=== PATIENT | female | born 1990 | race Caucasian/White ===

== ENCOUNTER 2020-10-10 17:23 | Emergency (ER) | payer OTHER, SELFPAY ==
[2020-10-10 17:40] VITALS: BP 124/76; PULSE 81; RESP 16; TEMP 36.6; O2SAT 98
--- NOTE | 2020-10-10 17:46 | ED.DENTAL ---
HPI - Dental/Oral General Chief complaint: Dental/Oral Stated complaint: DENTAL PAIN Time Seen by Provider: 10/10/20 17:46 Source: patient and RN notes reviewed Mode of arrival: ambulatory Limitations: no limitations History of Present Illness HPI Narrative: 30 year old female who presents to [facility] care with complaints of 1 day history of dental pain to right lower molar. Patient states that she had a filling in her tooth which fell out about 2 weeks and just started causing her pain today. Patient has noted swelling of gum around #31 tooth with redness,black decay noted around base of tooth with hole in center of tooth where filling previously had been. Patient denies any difficulty with swallowing, no facial swelling noted, no trismus or Christopher angina noted. Patient is presently nursing once or twice daily. MD Complaint: tooth pain Location: Tooth # (31) Onset (ago): day(s) (1) Duration: constant Severity: severe Severity scale (1-10): 8 Relieving factors: other (tylenol helped alittle) Exacerbating factors: cold Context: history of dental caries Associated symptoms: gum swelling Treatment prior to arrival: oral analgesic (Tylenol) Related Data Allergies Allergy/AdvReac Type Severity Reaction Status Date / Time codeine Allergy Unknown Unknown Verified 06/07/20 08:38 latex Allergy Unknown Blister Verified 06/07/20 08:38 Penicillins Allergy Unknown NAUSEA/RASH Verified 06/07/20 08:38 strawberry Allergy Unknown Hives Verified 06/07/20 08:38 Review of Systems Review of Systems: Narrative: CONSTITUTIONAL: Denies fever, chills, or sweats. EYES: Denies visual changes, redness, or discharge. ENT: Denies rhinorrhea, congestion, sore throat, or otalgia.positive for dental pain CARDIOVASCULAR: Denies chest pain, palpitations, or edema. RESPIRATORY: Denies cough or dyspnea. GASTROINTESTINAL: Denies abdominal pain, nausea, vomiting, or diarrhea. GENITOURINARY: Denies dysuria or hematuria. SKIN: Denies rash or itching. MUSCULOSKELETAL: Denies back pain, joint pain, or myalgia. NEUROLOGIC: Denies headache, numbness, or weakness. PSYCHIATRIC: Positive history of anxiety or depression, previous suicide attempt All systems reviewed & are unremarkable except as noted in HPI and below PMFSH Past Medical History Medical History (Updated 10/12/20 @ 11:22 by Eden Win NP) Allergies Anxiety Attention deficit disorder Cyst of face Depression Eating disorder Previous known suicide attempt Swallowing difficulty Surgical History Surgical History H/O dilation and curettage Family History Family History Mother Family history of mental disorder Heart palpitations Anxiety Sibling Patient's sister is in good health, Onset Age: 18 Father Family history of diabetes mellitus in first degree relative Social History Social History (Updated 10/12/20 @ 11:23 by Eden Win NP) Smoking packs per day: 0.50 Smoking cigarettes per day: 10.0 Smoking status: Current every day smoker Smoking end date: 07/21/18 Alcohol intake: never Substance use: former Substance use type: marijuana and crack/cocaine Last use: 2009 Living arrangements: with family Gender identity (if verbalized by the patient): Female Comments At time of signature, agree with nursing past medical, surgical, social and family history. There is no relevant family history pertinent to the presenting complaint Exam Narrative: Exam Narrative: GENERAL: Well-appearing, well-nourished, and in no acute distress. HEAD: Normocephalic, atraumatic. EYES: PERRLA and EOMI. ENT: Nares clear, no rhinorrhea or epistaxis. Mucous membranes moist.TM's normal with good light reflex,throat pink with uvula midline, no tonsil swelling exudates or lesions, No Christopher angina, no facial swelling noted or Trismus. #31 tooth has red swollen gums maldonado
== END 2020-10-10 18:08 | disposition home or self-care (01) ==
PROVIDERS: Emergency Provider Registered Nurse; PCP Internal Medicine
DX: K04.7 Periapical abscess without sinus (principal); F17.210 Nicotine dependence, cigarettes, uncomplicated
CPT/HCPCS: 99213; G0463

== ENCOUNTER → 2020-11-02 10:12 | Outpatient (CLI) | payer OTHER, SELFPAY ==
[2020-11-02 12:52] LABS: Influenza Control Positive
[2020-11-02 17:41] LABS: SARS-CoV-2 RNA PCR Negative
== END ==
PROVIDERS: PCP Internal Medicine; Visit Provider Nurse Practitioner
DX: Z20.822 Contact with and (suspected) exposure to COVID-19 (principal)
CPT/HCPCS: 87804; C9803; U0003; U0005

== ENCOUNTER 2020-11-18 07:23 | Emergency (ER) | payer OTHER, SELFPAY ==
[2020-11-18] VITALS (13 sets, daily range): BP systolic 112–124; BP diastolic 67–84; PULSE 63–84; RESP 12–18; TEMP 36.6; O2SAT 99–100
--- NOTE | ~2020-11-18 | CT_ITS ---
EXAMINATION: CT brain wo con DATE: 11/18/2020 12:08 INDICATION: Dizziness, unsteady gait TECHNIQUE: Computed tomography (CT) of the head was performed without intravenous contrast. The mA wa s adjusted according to patient size. Iterative reconstruction technique was employed. Exam dose: 60 5.33 mGy-cm total exam DLP. COMPARISON: None FINDINGS: No intracranial mass lesion or hemorrhage or cerebrovascular accident is evident. No midlin e shift or mass effect. No subdural or epidural hematoma. There is mild soft tissue thickening or fluid in the dependent aspect of the right sphenoid sinus and focal posterior ethmoid air cell soft tissue thickening on the left. The mastoid air cells are james lly developed and aerated. No fracture or bone destruction of the cranial vault. IMPRESSION: No significant intracranial abnormality Reviewed, dictated and finalized at [facility] Reviewed, dictated and finalized at [facility].
--- NOTE | 2020-11-18 08:06 | ED.DIZZY ---
HPI - Dizziness General Chief Complaint: Dizziness Stated Complaint: dizzy Time Seen by Provider: 11/18/20 07:26 Source: patient and RN notes reviewed Mode of arrival: ambulatory Limitations: no limitations History of Present Illness HPI Narrative: This is a 30 year old female with history of anxiety and depression who presents for evaluation of vertigo. She has been having episodes intermittently for 6 months. She states she normally takes Dramamine and it will relieve her symptoms. Today her vertigo was not relieved with Dramamine. She states she was awaken from her sleep with feeling of room spinning. She has associated nausea but no vomiting. She is unsure of what makes it worse. She has intermittent left ear pain. She reports some sinus disease. She denies headache, fever, chest pain, sob. cough. Related Data Allergies Allergy/AdvReac Type Severity Reaction Status Date / Time codeine Allergy Unknown Unknown Verified 11/18/20 07:33 latex Allergy Unknown Blister Verified 11/18/20 07:33 Penicillins Allergy Unknown NAUSEA/RASH Verified 11/18/20 07:33 strawberry Allergy Unknown Hives Verified 11/18/20 07:33 Review of Systems Review of Systems: All systems reviewed & are unremarkable except as noted in HPI and below Constitutional: Constitutional: Denies chills and Denies fever(s) Eyes: Eyes: Denies change in vision and Denies photophobia ENT: Reports Normal hearing present, Reports vertigo, Reports dizziness and Reports nasal congestion Cardiovascular: Cardiovascular: Denies chest pain Respiratory: Respiratory: Denies cough and Denies dyspnea Gastrointestinal: Gastrointestinal: Denies abdominal pain, Reports nausea and Denies vomiting Neurologic: Reports vertigo, Denies headache(s), Denies focal weakness and Denies numbness PMFSH Past Medical History Medical History Allergies Anxiety Attention deficit disorder Cyst of face Depression Eating disorder Previous known suicide attempt Swallowing difficulty Surgical History Surgical History H/O dilation and curettage Family History Family History Mother Family history of mental disorder Heart palpitations Anxiety Sibling Patient's sister is in good health, Onset Age: 18 Father Family history of diabetes mellitus in first degree relative Social History Social History (Updated 10/12/20 @ 11:23 by Eden Win NP) Smoking packs per day: 0.50 Smoking cigarettes per day: 10.0 Smoking status: Current every day smoker Smoking end date: 07/21/18 Alcohol intake: never Substance use: former Substance use type: marijuana and crack/cocaine Last use: 2009 Gender identity (if verbalized by the patient): Female Exam Const: General: no acute distress and alert Orientation/consciousness: patient oriented x3 HENMT: Head: normocephalic and atraumatic Face and sinus: face symmetric Throat: uvula midline Eyes: EOM: EOMs intact bilaterally Resp: Effort & Inspection: normal respiratory effort and no retractions Auscultation: clear to auscultation bilaterally GI: GI Palp: Yes Soft to palpation, No Tenderness to palpation present (GI) and No Guarding due to palpation present (GI) Auscultation: normal bowel sounds Neuro: General: patient oriented x3, moves all extremities, no focal motor deficits and CN's II-XI intact bilaterally Cranial nerves: Yes CN's II-XII intact bilaterally and Yes Nystagmus not present Speech: normal speech Motor exam (neuro): 5/5 motor strength present throughout Coordination: [id number] test normal Psych: Mental Status: mental status grossly normal Affect: normal affect Course Reevaluation(s) Reevaluation #1: Patient reports she feels better but she still has some vertigo. She will be discharged to follow up with PCP
[2020-11-18] MEDS: LORazepam (*CRX) 1 MG TABLET PO (08:24)
[2020-11-18] MEDS: ONDANSETRON INJ 4 MG/2 ML VIAL IV PUSH (08:24)
[2020-11-18] MEDS: MECLIZINE HCL 25 MG TABLET PO (08:26)
--- NOTE | 2020-11-18 09:27 | PC.NURSE ---
Sitting on cart playing on phone. Still c/o dizziness with movement.
[2020-11-18] MEDS: PROMETHAZINE HCL 25 MG/ML AMPUL 12.5 MG IV PUSH (10:20)
== END 2020-11-18 13:10 | disposition home or self-care (01) ==
PROVIDERS: Emergency Provider General Practice; PCP Internal Medicine
DX: R42 Dizziness and giddiness (principal); J32.9 Chronic sinusitis, unspecified; F41.9 Anxiety disorder, unspecified; F32.9 Major depressive disorder, single episode, unspecified; F98.8 Other specified behavioral and emotional disorders with onset usually occurring in childhood and adolescence; Z87.891 Personal history of nicotine dependence
CPT/HCPCS: 70450; 81025; 96374; 96375; 99284; A9270; J2405; J2550

== ENCOUNTER 2021-03-26 19:21 | Emergency (ER) | payer OTHER, SELFPAY ==
--- NOTE | ~2021-03-26 | XR_ITS ---
EXAMINATION: XR chest 1V portable DATE: 03/26/2021 20:08 INDICATION: Cough and congestion. TECHNIQUE: A single frontal view of the chest was obtained. COMPARISON: Chest 2 views 07/06/2007, CT abdomen and pelvis 05/04/2015 FINDINGS: The chest demonstrates clear lungs without pneumonia, pleural effusion, or pneumothorax. Th e heart size is normal. IMPRESSION: 1. No acute cardiopulmonary disease. Reviewed, dictated and finalized at [facility].
[2021-03-26 19:31] VITALS: BP 128/79; PULSE 95; RESP 14; TEMP 36.7; O2SAT 99
[2021-03-26 19:42] VITALS: BP 136/86; PULSE 92; RESP 97; TEMP 36.8; O2SAT 100; O2SAT 99
--- NOTE | 2021-03-26 20:15 | ED.URI ---
HPI - URI/Sore Throat General Chief Complaint: Upper Respiratory Infection Stated Complaint: cough, loss of smell x 4 days, fatigue Time Seen by Provider: 03/26/21 19:40 Source: RN notes reviewed History of Present Illness HPI Narrative: Patient presents to emergency department from home for upper respiratory infection symptoms. States symptoms began 4 days ago. States he has been having rhinorrhea and nasal congestion as well as a cough this been nonproductive she notes mild sore throat she denies any fevers or chills, chest pain shortness of breath abdominal pain nausea vomiting or any other symptoms. States she did not receive the Covid vaccination Related Data Home Medications Medication Instructions Recorded Confirmed alprazolam 0.5 mg tablet 0.5 mg PO QHS PRN 12/26/20 01/09/21 Allergies Allergy/AdvReac Type Severity Reaction Status Date / Time codeine Allergy Unknown Unknown Verified 03/26/21 19:47 latex Allergy Unknown Blister Verified 03/26/21 19:47 Penicillins Allergy Unknown NAUSEA/RASH Verified 03/26/21 19:47 strawberry Allergy Unknown Hives Verified 03/26/21 19:47 Review of Systems Review of Systems: Gen.: Denies fevers or chills Eyes: Denies eye pain or visual change ENT: See HPI Respiratory: Denies shortness of breath reports cough CV: Denies chest pain or palpitations GI: Denies abdominal pain nausea, emesis or diarrhea Musculoskeletal: Denies back pain or muscle pain Neuro: Denies numbness, tingling, weakness or focal weakness Skin: Denies rash Except as documented, all other systems reviewed and negative [facility] Past Medical History Medical History Allergies Anxiety Anxiety and depression Attention deficit disorder Cyst of face Depression Eating disorder Migraine Previous known suicide attempt Swallowing difficulty Surgical History Surgical History H/O dilation and curettage Family History Family History Mother Family history of mental disorder Heart palpitations Anxiety Sibling Patient's sister is in good health, Onset Age: 18 Father Family history of diabetes mellitus in first degree relative Social History Social History Smoking packs per day: 0.50 Smoking cigarettes per day: 10.0 Smoking status: Former smoker Smoking end date: 07/21/18 Alcohol intake: never Substance use: former Substance use type: marijuana and crack/cocaine Last use: 2009 Gender identity (if verbalized by the patient): Female Exam Narrative: APPEARANCE: No acute distress, nontoxic, resting in bed EYES: EOMI HEENT: Normocephalic, atraumatic, bilateral turbinates boggy mild erythema no exudate of posterior pharynx uvula midline tolerating own secretions RESPIRATORY: No respiratory distress Clear to auscultation bilaterally with no rhonchi wheezing or rales. CARDIOVASCULAR: Regular rate and rhythm without murmurs rubs or gallops. ABDOMINAL: Soft, nontender, nondistended, no rebound or guarding MUSCULOSKELETAl: Moves all extremities. No clubbing, cyanosis or edema. NEURO: Awake and alert. Following commands, speech normal, no focal deficits SKIN:: Warm, dry. No rashes lesions or abrasions PSYCHIATRIC: Normal affect/mood, Course Course Emergency Course: Discussed with patient results of workup and diagnosis. Discussed need for follow-up with primary care, proper use of medication, and reasons to return to the emergency department. Patient understands and agrees to current treatment plan Vital Signs Vital signs: Vital Signs Temperature 98.1 F 03/26/21 19:31 Pulse Rate 95 03/26/21 19:31 Respiratory Rate 14 03/26/21 19:31 Blood Pressure 128/79 03/26/21 19:31 Pulse Oximetry 99 03/26/21 19:31 Temperature 98.2 F 03/26/21 19:42 Pulse Ra
[2021-03-26 20:18] LABS: EDCOVIDSCREEN Negative (Negative)
[2021-03-26 20:58] VITALS: BP 139/94; PULSE 85; RESP 16; O2SAT 97
== END 2021-03-26 21:00 | disposition home or self-care (01) ==
PROVIDERS: Emergency Provider Emergency Medicine; PCP Internal Medicine
DX: Z20.822 Contact with and (suspected) exposure to COVID-19 (principal); F41.9 Anxiety disorder, unspecified; F32.9 Major depressive disorder, single episode, unspecified
CPT/HCPCS: 36415; 71045; 87426; 99283; C9803

== ENCOUNTER 2025-02-22 15:06 | Outpatient (CLI) | payer BC, SELFPAY ==
--- OUTSIDE RECORDS SUMMARY | 2025-02-22 15:09 | XMS_ITS | Encounter Summary ---
Author Organization [facility] Address [address] [place] [address] Care Team Providers Care Pulp Grinder Feeder Name Role Phone None, Provider MD Primary Care Provider Unavaila ble Reason for Referral * Imaging (Emergency) - New Request Specialty Diagnoses / Procedures Referred By Chloe lala Referred To Contact RADIOLOGY Procedures US OB TRANSVAG Brenda Her FNP [phone] [address] Phone: tel: fax: Referral ID Status Reason Start Date Expiration Date V isits Requested Visits Authorized [id number] New Request 02/20/2025 02/20/2026 1 1 Reason for Visit * Reason Comments Vaginal Bleeding Encounter Details Date Type Department Care Team (Late st Contact Info) Description 02/20/2025 5:35 PM CDT - 02/20/2025 10:43 PM CDT Emergency [facility] [place] [address] Brenda Her FNP [phone] [id number] Vaginal Bleeding Discharge Disposition: Home or Self Care (Routine Discharge) Social History Tobacco Use Types Packs/Day Years Used Date Smoking Tobacco: Never Smokeless Tobacco: Never Tobacco Cessation:Counseling Given: Not Answered Alcohol Use Standard Drinks/Week Comments Never 0 (1 standard drink = 0.6 oz pur e alcohol) Comments Yes Sex and Gender Information Value Date Recorded Sex Assigned at Female 02/20/2025 5:26 PM CDT Legal Sex Female 6:15 PM CDT Gender Identity Not on file Sexual Orientation Not on file documented as of this encounter Last Filed Vital Signs Vital Sign Reading Time Taken Comments Blood Pressure 102/58 02/20/2025 10:00 PM CDT Pulse 69 02/20/2025 10:00 PM CDT Temperature 37.1 C (98.7 F) 02/20/2025 5:26 PM CDT Respiratory Rate 18 02/20/2025 10:00 PM CDT Oxygen Saturation 98% 02/20/2025 10:00 PM CDT Inhaled Oxygen Concentration - - Weight 58.1 kg (128 lb) 02/20/2025 5:26 PM CDT Height 167.6 cm (5' 6) 02/20/2025 5:26 PM CDT Body Mass Index 20.66 02/20/2025 5:26 PM CDT documented in this encounter Functional Status * Calculated C-SSRS Risk Score (Lifetime/Recent) Answer Date of Assessment Author Status No Risk Indicated 02/20/2025 5:27 PM CDT Paty Lorenzo RN Active * Ada Suicide Severity Rating Scale (Screener/Recent Self-Report) Question Answer Date of Assessment Author Status 1. Wish to be (Past 1 Month) No 02/20/2025 5:27 PM CDT Tania Lorenzo RN Act edison 2. Non-Specific Active Suicidal Thoughts (Past 1 Month) No 02/20/2025 5:27 PM CDT Tania Lorenzo RN Act edison 6. Suicidal Behavior (Lifetime) No 02/20/2025 5:27 PM CDT Tania Lorenzo RN Act edison documented as of this encounter Discharge Instructions * Discharge Instructions* Brenda Her, KAIL - 02/20/2025 10:08 PM CDT Beta HCG- 21,226 US: IMPRESSION: 1. There is an early intrauterine with a gestational sac and yolk sac demonstrated. No identifiable embryo at this time. 2. Small areas associated with the periphery of the gestational sac of uncertain significance. 3. Findings of probable perigestational hemorrhage and hemorrhage within the cervical canal. 3. Recommend obstetrics evaluation and follow-up ultrasound to confirm whether or not an embryo develops. Please call your EXTENSION SERVICE SPECIALIST tomorrow for follow-up. You will likely need additional blood work and ultrasound imaging, usually wait 48 hours. Pelvic rest, this needs nothing inside the vagina including tampons or having sex. If you are bleeding through more than 1 pad an hour for 2 hours, feeling lightheaded or dizzy you should return for further evaluation. * Attachments The following attachments cannot be sent through Care Everywhere. * Bleeding in Early Discharge Instructions ([place]i) documented in this encounter ED Notes * Tania Lorenzo RN - 02/20/2025 5:25 PM CDT presents to ER with left lower quadrant abdominal cramping and vaginal bleeding. LMP 12/20/2024. Has not established obstetrical care as of yet. documented in this encounter Plan of Treatment Not on file documented as of this encounter Procedures Procedure Name Priority Date/Time Associated Diagnosis Comments US OB TRANSVAG STAT 02/20/2025 8:27 PM CDT HC BLOOD TYPING ABO STAT 02/20/2025 7 :17 PM CDT HC HCG QN STAT 02/20/2025 5:43 PM CDT COMPREHENSIVE METABOLIC PANEL STAT 02/20/2025 5:38 PM CDT CBC W/DIFF AUTOMATED STAT 02/20/2025 5:38 PM CDT HC URINALYSIS AUTO W/O MICRO STAT 02/20/2025 5:35 PM CDT documented in this encounter Results * US OB TRANSVAG (02/20/2025 8:27 PM CDT) Anatomical Region Laterality Modality Abdomen, Pelvis Ultrasound 02/20/2025 9:45 PM CDT Impressions 02/20/2025 10:01 PM CDT IMPRESSION: 1. There is an early intrauterine with a gestational sac and yolk sac demonstrated. No identifiable embryo at this time. 2. Small areas associated with the periphery of the gestational sac of uncertain significance. 3. Findings of probable perigestational hemorrhage and hemorrhage within the cervical canal. 3. Recommend obstetrics evaluation and follow-up ultrasound to confirm whether or not an embryo develops. Referred By: Interpreted By: Huan Brooks MD, 02/20/2025 9:45 PM Narrative 02/20/2025 10:01 PM [address] [address] EXAM: US OB TRANSVAG DATE: 02/20/2025 COMPARISON: None INDICATION: Early and bleeding, left pelvic pain. LMP 12/20/2024. TECHNIQUE: Grayscale, color Doppler, and spectral waveform analysis performed. Transvaginal scanning. FINDINGS: Grayscale, color Doppler, and spectral waveform analysis performed. The uterus measures 9.4 cm long, 5.9 cm AP, and 6.7 cm transverse. Retroverted uterus. The right ovary measures 4.3 x 2.3 x 1.9 cm. Left ovary measures 1.6 x 2.3 x 2.6 cm. There is hypoechoic material in the cervical canal. Probable blood with the given history. Multiple nabothian cysts. There is an intrauterine gestational sac which contains a yolk sac. No identifiable embryo. The margins of portions of the sac are somewhat undulating. Additionally, there are small foci of increased echogenicity along the periphery of the sac. Their etiology is unknown. There are a few small hypoechoic foci associated with the endometrium around the sac. These are likely perigestational hemorrhages. Estimated gestational age by sac measurements is 6 weeks 3 days. This is discrepant with the age by LMP of 8 weeks 6 days. In either case, an embryo would be an expected finding. There is free fluid in the pelvis. The right ovary contains a few small follicles. Blood flow shown to the ovary with Doppler. Hyperechoic structure with posterior shadowing adjacent to the right ovary is probably collapsed, gas containing bowel. Blood flow shown to the left ovary with Doppler. Procedure Note Huan Brooks MD - 02/20/2025 [facility] [address] [place], [place] [address] EXAM: US OB TRANSVAG DATE: 02/20/2025 COMPARISON: None INDICATION: Early and bleeding, left pelvic pain. LMP12/20/2024. TECHNIQUE: Grayscale, color Doppler, and spectral waveform analysisperformed. Transvaginal scanning. FINDINGS: Grayscale, color Doppler, and spectral waveform analysisperformed. The uterus measures 9.4 cm long, 5.9 cm AP, and 6.7 cm transverse.Retroverted uterus. The right ovary measures 4.3 x 2.3 x 1.9 cm. Leftovary measures 1.6 x 2.3 x 2.6 cm. There is hypoechoic material in the cervical canal. Probable blood withthe given history. Multiple nabothian cysts. There is an intrauterine gestational sac which contains a yolk sac. Noidentifiable embryo. The margins of portions of the sac are somewhatundulating. Additionally, there are small foci of increased echogenicityalong the periphery of the sac. Their etiology is unknown. There are afew small hypoechoic foci associated with the endometrium around the sac.These are likely perigestational hemorrhages. Estimated gestational age by sac measurements is 6 weeks 3 days. This isdiscrepant with the age by LMP of 8 weeks 6 days. In either case, anembryo would be an expected finding. There is free fluid in the pelvis. The right ovary contains a few smallfollicles. Blood flow shown to the ovary with Doppler. Hyperechoicstructure with posterior shadowing adjacent to the right ovary is probablycollapsed, gas containing bowel. Blood flow shown to the left ovary withDoppler. IMPRESSION: 1. There is an early intrauterine with a gestational sac andyolk sac demonstrated. No identifiable embryo at this time. 2. Small areas associated with the periphery of the gestational sac ofuncertain significance. 3. Findings of probable perigestational hemorrhage and hemorrhage withinthe cervical canal. 3. Recommend obstetrics evaluation and follow-up ultrasound to confirmwhether or not an embryo develops. Referred By: Interpreted By: Huan Brooks MD, 02/20/2025 9:45 PM Brenda Her [facility] ULTRASOUND Final Resul t * BLOOD TYPING, ABO AND RH (02/20/2025 7:17 PM CDT) ABO/RH O POSITIVE 02/20/2025 7:43 PM CDT [facility] 02/20/2025 7:17 PM CDT Brenda Her [facility] BLOOD BANK TEST ORDERABLES Final Result Performing Organization Address City/[facility] Co de Phone Number [facility] [address] [place] [address], [place] [phone] * Quantitative HCG (02/20/2025 5:43 PM CDT) HCG QUANTITATIVE 21,226 MIU/ML 02/21/20 6:40 PM CDT [facility] Comment: WEEKS OF REFERENCE RANGES Non- female < or = 2 0.2 - 1 5 - 50 1 - 2 50 - 500 2 - 3 100 - 5000 3 - 4 500 - 10,000 4 - 5 1000 - 50,000 5 - 6 10,000 - 100,000 6 - 8 15,000 - 200,000 2 - 3 MONTHS 10,000 - 100,000 02/20/2025 5:43 PM CDT Brenda Her [facility] Final Resul t [facility] [address] [place] [address], [place] [phone] * (ABNORMAL) COMPREHENSIVE METABOLIC PANEL (02/20/2025 5:38 PM CDT) [facility] GLUCOSE 84 70 - 99 MG/DL 02/20/2025 6:22 PM CDT [facility] BUN 6(L) 7 - 18 MG/DL 02/20/2025 6:22 PM CDT [facility] CREATININE S/P/B 0.59 0.55 - 1.02 MG/DL 02/20/2025 6:22 PM CDT [facility] SODIUM S/P/B 136 136 - 145 MMOL/L 02/20/2025 6:22 PM CDT [facility] POTASSIUM S/P/B 3.5 3.5 - 5.1 MMOL/L 02/20/2025 6:22 PM CDT [facility] CHLORIDE S/P/B 105 97 - 115 MMOL/L 02/20/2025 6:22 PM CDT [facility] CO2 26.0 21 - 32 MMOL/L 02/20/2025 6:22 PM CDT [facility] CALCIUM S/P/B 9.7 8.5 - 10.1 MG/DL 02/20/2025 6:22 PM CDT [facility] BILIRUBIN TOTAL S/P/B 0.4 0.2 - 1.2 MG/DL 02/20/2025 6:22 PM CDT [facility] Comment: THIS ASSAY IS NOT RECOMMENDED FOR PATIENTS UNDERGOING TREATMENT WITH ELTROMBOPAG DUE TO THE POTENTIAL FOR FALSELY ELEVATED RESULTS. TOTAL PROTEIN S/P/B 7.4 6.4 - 8.2 G/DL 02/20/2025 6:22 PM CDT [facility] ALBUMIN S/P/B 3.9 3.4 - 5.0 G/DL 02/20/2025 6:22 PM CDT [facility] AST 12(L) 15 - 37 U/L 02/20/2025 6:22 PM CDT [facility] ALT 18 14 - 55 U/L 02/20/2025 6:22 PM CDT [facility] ALKALINE PHOSPHATASE S/P/B 56 50 - 136 U/L 02/20/2025 6:22 PM CDT [facility] ANION GAP 5.0 2 - 10 MMOL/L 02/20/2025 6:22 PM CDT [facility] BUN CREATININE RATIO 10.2 6 - 26 02/20/2025 6:22 PM CDT [facility] A/G RATIO 1.1 1.0 - 2.0 RATIO 02/20/2025 6:22 PM CDT [facility] GFR ESTIMATE >90 >90 ML/MIN/1.7 3 M2 02/20/2025 6:22 PM CDT [facility] Comment: NOTE: eGFR is not calculated for patients <18 years of age or gender unknown. This is an estimated GFR calculation using the new CKD EPI creatinine equation without race and so does not require a correction factor for race. This estimated GFR should not be used for calculating drug doses. 02/20/2025 5:38 PM CDT us Brenda Her LAB TECHNOLOGIST LABORATORY Final Resul t [facility] [address] [place] [address], [place] [phone] * (ABNORMAL) CBC W/DIFF AUTOMATED (02/20/2025 5:38 PM CDT) WBC 7.29 4.5 - 11.0 x10'3/uL 02/20/2025 6:07 PM CDT [facility] RBC 4.04(L) 4.20 - 5.40 x10'6/uL 02/20/2025 6:07 PM CDT [facility] HGB 12.2 12.0 - 16.0 G/DL 02/20/2025 6:07 PM CDT [facility] HCT 36.1(L) 38.0 - 48.0 % 02/20/2025 6:07 PM CDT [facility] MCV 89.4 81.0 - 99.0 FL 02/20/2025 6:07 PM CDT [facility] MCH 30.2 27.0 - 31.0 PG 02/20/2025 6:07 PM CDT [facility] MCHC 33.8 32.0 - 36.0 G/DL 02/20/2025 6:07 PM CDT [facility] RDW 13.0 11.5 - 14.5 % 02/20/2025 6:07 PM CDT [facility] PLT 234 130 - 400 x10'3/uL 02/20/2025 6:07 PM CDT [facility] MPV 9.7 9.3 - 12.2 FL 02/20/2025 6:07 PM CDT [facility] DIFFERENTIAL TYPE AUTOMATED DIFFERENTIAL 02/20/2025 6:07 PM CDT [facility] NEUTROPHILS % 67.0 % 02/20/2025 6:07 PM CDT [facility] LYMPHOCYTES % 25.7 % 02/20/2025 6:07 PM CDT [facility] MONOCYTES % 6.0 % 02/20/2025 6:07 PM CDT [facility] EOSINOPHILS 0.3 % 02/20/2025 6:07 PM CDT [facility] BASOPHILS 0.7 % 02/20/2025 6:07 PM CDT [facility] IMMATURE GRANS % 0.3 % 02/21/20 6:07 PM CDT [facility] ABS. NEUTROPHILS 4.89 1.80 - 7.70 x10'3/uL 02/20/2025 6:07 PM CDT [facility] ABS. LYMPHOCYTES 1.87 1.00 - 4.80 x10'3/uL 02/20/2025 6:07 PM CDT [facility] ABS. MONOCYTES 0.44 0.24 - 0.86 x10'3/uL 02/20/2025 6:07 PM CDT [facility] ABS. EOSINOPHILS 0.02(L) 0.04 - 0.36 x10'3/uL 02/20/2025 6:07 PM CDT [facility] ABS. BASOPHILS 0.05 0.01 - 0.08 x10'3/uL 02/20/2025 6:07 PM CDT [facility] ABS. IMMATURE GRANULOCYTES 0.02 0.00 - 0.49 x10'3/uL 02/20/2025 6:07 PM CDT [facility] 02/20/2025 5:38 PM CDT Brenda Her LAB TECHNOLOGIST LABORATORY Final Resul t [facility] [address] [place] [address], [place] [phone] * URINALYSIS (02/20/2025 5:35 PM CDT) SPECIMEN TYPE URINE CLEAN CATCH 02/20/2025 5:35 PM CDT [facility] COLOR (U) COLORLESS 02/20/2025 5:54 PM CDT [facility] TRANSPARENCY CLEAR 02/20/2025 5:54 PM CDT [facility] SPECIFIC GRAVITY (U) 1.005 1.001 - 1.030 02/20/2025 5:54 PM CDT [facility] U PH 6.5 5.0 - 9.0 02/20/2025 5:54 PM CDT [facility] LEUKOCYTES (U) NEGATIVE NEGATIVE 02/20/2025 5:54 PM CDT [facility] NITRITES NEGATIVE NEGATIVE 02/20/2025 5:54 PM CDT [facility] PROTEIN RANDOM (U) NEGATIVE <30 MG/DL 02/20/2025 5:54 PM CDT [facility] GLUCOSE (U) NORMAL NORMAL MG/DL 02/20/2025 5:54 PM CDT [facility] KETONES MG/DL (U) NEGATIVE NEGATIVE MG/DL 02/20/2025 5:54 PM CDT [facility] UROBILINOGEN NORMAL NORMAL MG/DL 02/20/2025 5:54 PM CDT [facility] BILIRUBIN (U) NEGATIVE NEGATIVE MG/DL 02/20/2025 5:54 PM CDT [facility] BLOOD (U) NEGATIVE NEGATIVE 02/20/2025 5:54 PM CDT [facility] URINE SPECIMEN OBTAINED BY CLEAN CATCH PROCEDURE / Unknown 02/20/2025 5:35 PM CDT us Brenda Her LAB TECHNOLOGIST URINE ORDERABLES Final Resu lt [facility] [address] [place] [address], [place] [phone] documented in this encounter Visit Diagnoses Diagnosis Vaginal bleeding affecting early (HHS/HCC)- Primary documented in this encounter Care Teams Pulp Grinder Feeder Relationship Specialty Start Date End Date None, Provider, PCP - General UNKNOWN PHYSICIAN SPECIALTY 02/20/25 documented as of this encounter
--- OUTSIDE RECORDS SUMMARY | 2025-02-22 15:09 | XMS_ITS | Clinical Summary ---
Author Organization [facility] Address [address] [place] [address] Care Team Providers Care Building Code Administrator Name Role Phone Rolly Demarcus Christianne DO Primary Care Provider [phone] Source Comments [facility],non-owned Affiliates and Associated Physician Practices is amultiple site organization consisting of ambulatory clinics and hospital sitesin [place], [place], [place] and [place]. This disclosure is being madepursuant to the Care Everywhere program and may not contain all information available regarding this patient. Last updated 18.[facility] Allergies Active Allergy Reactions Criticality Noted Date Comments Codeine Nausea and/or Vomiting 05/20/2017 Latex Other 05/20/2017 Pt stated her skin will blister Penicillins Anaphylaxis High 05/20/2017 [place] Urticaria Medium 05/20/2017 Medications * Be aware that medications may not be up to date on this document. Alwaysverify current medications with the patient. venlafaxine XR 24hr (EFFEXOR XR) 150 MG capsule Take 150 mg by mouth daily with breakfast Active Vit-Fe Fumarate-FA ( VITAMIN) 28-0.8 MG tablet Take 1 tablet by mouth once daily Active ibuprofen (MOTRIN) 600 MG tablet Take 1 tablet by mouth every 6 hours as needed for Pain 60 tablet 7 Active docusate sodium (COLACE) 100 MG capsule Take 1 capsule by mouth 2 times daily 30 capsule 3 7 Active polyethylene glycol 3350 (MIRALAX) packet Take 17 g by mouth once daily 30 packet 1 7 Active ferrous sulfate 325 (65 FE) MG tablet Take 1 tablet by mouth daily with breakfast 30 tablet 2 7 Active labetalol (NORMODYNE; TRANDATE) 100 MG tablet Take 1 tablet by mouth every 12 hours 60 tablet 2 7 Active Active Problems Patient Care Coordination No te Formatting of this note migh t be different from the original. 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 Pre-eclampsia in third trimester 05/20/2017 Social History Tobacco Use Types Packs/Day Years Used Date Smoking Tobacco: Every Day Cigarettes Smokeless Tobacco: Never Tobacco Cessation:Ready to Q uit: Yes; Counseling Given: Yes Alcohol Use Standard Drinks/Week Comments No 0 (1 standard drink = 0.6 oz pur e alcohol) Comments No Sex and Gender Information Value Date Recorded Sex Assigned at Not on file Legal Sex Female 2:42 PM CDT Gender Identity Not on file Sexual Orientation Not on file Last Filed Vital Signs Vital Sign Reading Time Taken Comments Blood Pressure 140/82 05/26/2017 4:35 PM DIGITAL STRATEGY MANAGER Pulse 74 05/25/2017 6:35 PM DIGITAL STRATEGY MANAGER Temperature 36.7 C (98.1 F) 05/26/2017 4:35 PM DIGITAL STRATEGY MANAGER Respiratory Rate 16 05/26/2017 4:35 PM DIGITAL STRATEGY MANAGER Oxygen Saturation 99% 05/26/2017 4:35 PM DIGITAL STRATEGY MANAGER Inhaled Oxygen Concentration - - Weight 83 kg (183 lb) 05/26/2017 8:10 AM DIGITAL STRATEGY MANAGER Height 170.2 cm (5' 7) 05/21/2017 8:00 AM CDT Body Mass Index 28.66 05/21/2017 8:00 AM CDT Plan of Treatment Health Maintenance Due Date Last Done Comments HIV SCREENING 10/03/2003 HEPATITIS C SCREENING 09/28/2006 DTAP/TDAP/TD VACCINES (1 - Tdap) 10/03/2007 HEPATITIS B VACCINE (1 of 3 - 19+ 3-dose series) 10/03/2007 HPV VACCINE (1 - 3-dose SCDM series) 10/03/2015 COVID-19 VACCINE (2023-2 5 season) 2024 DEPRESSION SCREENING 07/21/2024 INFLUENZA VACCINE (#1) 2025 ZOSTER VACCINE (1 of 2) 2038 HIB VACCINE Aged Out No longer eligi ble based on patient's age to complete this topic MENINGOCOCCAL (Group B) VACC INE SHARED DECISION-MAKING Aged Out No longer eligibl e based on patient's age to complete this topic MENINGOCOCCAL GROUPS A/C/Y/W VACCINE Aged Out No longer eligible b ased on patient's age to complete this topic PNEUMOCOCCAL VACCINE Aged Out No long er eligible based on patient's age to complete this topic Procedures Procedure Name Priority Date/Time Associated Diagnosis Comments CULTURE STREP B Routine 05/21/2017 7:12 AM CDT from Last 3 Months or Most Recently Relevant to Health Maintenance Results * CULTURE STREP B (05/21/2017 7:12 AM CDT) Culture Strep B Negative for beta-hemolytic Streptococcus Group B DOUGLAS 05/24/2017 4:10 PM CDT [facility] MICROBIOLOGY Microbiology MISCELLANEOUS SAMPLES / Unknown Collection / Unknown 05/21/2017 7:12 AM CDT 05/21/2017 7:27 AM CDT Barbie Solis MD LAB - MICROBIOLOGY ORDERA BLES Final Result [facility]CRO[facility] [address] [place] [address], [facility] [phone] from Last 3 Months or Most Recently Relevant to Health Maintenance Insurance [facility] Advance Directives * Full Code (Latest Code Status on File) Date Activated Date Inactivated Comments 05/22/2017 5:39 PM 05/26/2017 7:54 PM * Full Code Date Activated Date Inactivated Comments 05/20/2017 6:49 PM 05/22/2017 5:39 PM * Full Code Date Activated Date Inactivated Comments 05/20/2017 3:55 PM 05/20/2017 6:49 PM Care Teams Building Code Administrator Relationship Specialty Start Date End Date Demarcus Lofton DO PCP - General Internal Medicine 05/20/17
--- OUTSIDE RECORDS SUMMARY | 2025-02-22 15:09 | XMS_ITS | Clinical Summary ---
Author Organization [facility] Address [address] [place] [address] Care Team Providers Care Senior Enterprise Architect Name Role Phone None, Provider MD Primary Care Provider Unavaila ble Allergies Active Allergy Reactions Criticality Noted Date Comments Penicillins Anaphylaxis High 02/20/2025 Medications No known medications Encounters Date Type Department Care Team Description 02/20/2025 5:35 PM CDT - 02/20/2025 10:[address] [facility] [place] [address] Brenda Her, HEEL BUILDER MACHINE Vaginal Bleeding Discharge Disposition: Home or Self Care (Routine Discharge) 02/20/2025 Travel from Last 3 Months Social History Tobacco Use Types Packs/Day Years [...] Mass Index 20.66 02/20/2025 5:26 PM CDT Plan of Treatment Health Maintenance Due Date Last Done Comments Cervical Cancer Screening Pa p Smear (Age 30 to 64) Every 3 Years 1988 Annual Physical 10/03/1991 Hepatitis C 2006 DTaP, Tdap and Td Vaccines ( 1 - Tdap) 10/03/2007 Hepatitis B Vaccines (1 of 3 - 19+ 3-dose series) 10/03/2007 HPV Vaccines (1 - 3-dose SCD M series) 10/03/2015 Cervical Cancer Screening Pa p with HPV Testing (Age 30 to 64) Every 5 Years 2018 Cervical Cancer Screening with HPV 2018 COVID-19 Vaccine (2023-2 5 season) 2024 RSV Immunization or 60+ Years (1 - 1-dose 75+ series) 10/03/2063 Meningococcal B Vaccine Aged Out No l onger eligible based on patient's age to complete this topic Meningococcal Vaccine Aged Out No marlen natividad eligible based on patient's age to complete this topic Pneumococcal Vaccine: Pediat rics (0 to 5 Years) and At-Risk Patients (6 to 49 Years) Aged Out No longer eligible b ased on patient's age to complete this topic RSV Immunizations Under 20 Months Aged Out No longer eligible based on patient's age to complete [...] W/O MICRO STAT 02/20/2025 5:35 PM CDT from Last 3 Months Results * US OB TRANSVAG (02/20/2025 8:27 [...] 9:45 PM Narrative 02/20/2025 10:01 PM CDT [address] [address] EXAM: US OB TRANSVAG DATE: 02/20/2025 COMPARISON: [...] left ovary with Doppler. Procedure Note Huan Brokos MD - 02/20/[address] [address] EXAM: US OB TRANSVAG DATE: 02/20/2025 COMPARISON: [...] Brooks MD, 02/20/2025 9:45 PM Brenda Her [facility] ULTRASOUND Final Resul t * BLOOD TYPING, ABO AND RH (02/20/2025 7:17 PM CDT) ABO/RH O POSITIVE 02/20/2025 7:43 PM CDT [facility] 02/20/2025 7:17 PM CDT Brenda Her [facility] BLOOD BANK TEST ORDERABLES Final Result [facility] [address] [id number], [place] [phone] * Quantitative HCG (02/20/2025 5:43 PM CDT) HCG QUANTITATIVE 21,226 MIU/ML 02/21/20 6:40 PM CDT [facility] Comment: WEEKS OF REFERENCE RANGES Non- [...] 10,000 - 100,000 02/20/2025 5:43 PM CDT us Brenda Her [facility] Final Resul t [facility] [address] [place] [address], * (ABNORMAL) COMPREHENSIVE METABOLIC PANEL (02/20/2025 5:38 PM CDT) GLUCOSE 84 70 - 99 MG/DL 02/20/2025 6:22 PM CDT [facility] BUN 6(L) 7 - 18 MG/DL 02/20/2025 6:22 PM CDT [facility] CREATININE S/P/B 0.59 0.55 - 1.02 MG/DL 02/20/2025 6:22 PM CDT [facility] SODIUM S/P/B 136 136 - 145 MMOL/L 02/20/2025 6:22 PM CDT [facility] POTASSIUM S/P/B 3.5 3.5 - 5.1 MMOL/L 02/20/2025 6:22 PM CDT [facility] CHLORIDE S/P/B 105 97 - 115 MMOL/L 02/20/2025 6:22 PM CDT [facility] CO2 26.0 21 - 32 MMOL/L 02/20/2025 6:22 PM CDT [facility] CALCIUM S/P/B 9.7 8.5 - 10.1 MG/DL 02/20/2025 6:22 PM CDT [facility] BILIRUBIN TOTAL S/P/B 0.4 0.2 - 1.2 MG/DL 02/20/2025 6:22 PM CDT [facility] Comment: THIS ASSAY IS NOT RECOMMENDED FOR PATIENTS UNDERGOING TREATMENT WITH ELTROMBOPAG DUE TO THE POTENTIAL FOR FALSELY ELEVATED RESULTS. TOTAL PROTEIN S/P/B 7.4 6.4 - 8.2 G/DL 02/20/2025 6:22 PM CDT [facility] ALBUMIN S/P/B 3.9 3.4 - 5.0 G/DL 02/20/2025 6:22 PM CDT [facility] AST 12(L) 15 - 37 U/L 02/20/2025 6:22 PM CDT [facility] ALT 18 14 - 55 U/L 02/20/2025 6:22 PM CDT [facility] ALKALINE PHOSPHATASE S/P/B 56 50 - 136 U/L 02/20/2025 6:22 PM CDT [facility] ANION GAP 5.0 2 - 10 MMOL/L 02/20/2025 6:22 PM CDT [facility] BUN CREATININE RATIO 10.2 6 - 26 02/20/2025 6:22 PM CDT [facility] A/G RATIO 1.1 1.0 - 2.0 RATIO 02/20/2025 6:22 PM CDT [facility] GFR ESTIMATE >90 >90 ML/MIN/1.7 3 M2 02/20/2025 6:22 PM CDT [facility] Comment: NOTE: eGFR is not calculated for patients <18 years of age or gender unknown. This is an estimated GFR calculation using the new CKD EPI creatinine equation without race and so does not require a correction factor for race. This estimated GFR should not be used for calculating drug doses. 02/20/2025 5:38 PM CDT us Brenda Her HEEL BUILDER MACHINE LABORATORY Final Resul t [facility] [address] [place] [address], [place] [phone] * (ABNORMAL) CBC W/DIFF AUTOMATED (02/20/2025 5:38 PM CDT) WBC 7.29 4.5 - 11.0 x10'3/uL 02/20/2025 6:07 PM CDT [facility] RBC 4.04(L) 4.20 - 5.40 x10'6/uL 02/20/2025 6:07 PM CDT [facility] HGB 12.2 12.0 - 16.0 G/DL 02/20/2025 6:07 PM CDT [facility] HCT 36.1(L) 38.0 - 48.0 % 02/20/2025 6:07 PM CDT [facility] MCV 89.4 81.0 - 99.0 FL 02/20/2025 6:07 PM CDT [facility] MCH 30.2 27.0 - 31.0 PG 02/20/2025 6:07 PM CDT [facility] MCHC 33.8 32.0 - 36.0 G/DL 02/20/2025 6:07 PM CDT [facility] RDW 13.0 11.5 - 14.5 % 02/20/2025 6:07 PM CDT [facility] PLT 234 130 - 400 x10'3/uL 02/20/2025 6:07 PM CDT [facility] MPV 9.7 9.3 - 12.2 FL 02/20/2025 6:07 PM CDT [facility] DIFFERENTIAL TYPE AUTOMATED DIFFERENTIAL 02/20/2025 6:07 PM CDT [facility] NEUTROPHILS % 67.0 % 02/20/2025 6:07 PM CDT [facility] LYMPHOCYTES % 25.7 % 02/20/2025 6:07 PM CDT [facility] MONOCYTES % 6.0 % 02/20/2025 6:07 PM CDT [facility] EOSINOPHILS 0.3 % 02/20/2025 6:07 PM CDT [facility] BASOPHILS 0.7 % 02/20/2025 6:07 PM CDT [facility] IMMATURE GRANS % 0.3 % 02/21/20 25 6:07 PM CDT [facility] ABS. NEUTROPHILS 4.89 1.80 - 7.70 x10'3/uL 02/20/2025 6:07 PM CDT [facility] ABS. LYMPHOCYTES 1.87 1.00 - 4.80 x10'3/uL 02/20/2025 6:07 PM CDT [facility] ABS. MONOCYTES 0.44 0.24 - 0.86 x10'3/uL 02/20/2025 6:07 PM CDT [facility] ABS. EOSINOPHILS 0.02(L) 0.04 - 0.36 x10'3/uL 02/20/2025 6:07 PM CDT [facility] ABS. BASOPHILS 0.05 0.01 - 0.08 x10'3/uL 02/20/2025 6:07 PM CDT [facility] ABS. IMMATURE GRANULOCYTES 0.02 0.00 - 0.49 x10'3/uL 02/20/2025 6:07 PM CDT [facility] 02/20/2025 5:38 PM CDT us Brenda Her HEEL BUILDER MACHINE LABORATORY Final Resul t [facility] [address] [place] [address], * URINALYSIS (02/20/2025 5:35 PM CDT) SPECIMEN TYPE URINE CLEAN CATCH 02/20/2025 5:35 PM CDT [facility] COLOR (U) COLORLESS 02/20/2025 5:54 PM CDT [facility] TRANSPARENCY CLEAR 02/20/2025 5:54 PM CDT [facility] SPECIFIC GRAVITY (U) 1.005 1.001 - 1.030 02/20/2025 5:54 PM CDT [facility] U PH 6.5 5.0 - 9.0 02/20/2025 5:54 PM CDT [facility] LEUKOCYTES (U) NEGATIVE NEGATIVE 02/20/2025 5:54 PM CDT [facility] NITRITES NEGATIVE NEGATIVE 02/20/2025 5:54 PM CDT [facility] PROTEIN RANDOM (U) NEGATIVE <30 MG/DL 02/20/2025 5:54 PM CDT [facility] GLUCOSE (U) NORMAL NORMAL MG/DL 02/20/2025 5:54 PM CDT [facility] KETONES MG/DL (U) NEGATIVE NEGATIVE MG/DL 02/20/2025 5:54 PM CDT [facility] UROBILINOGEN NORMAL NORMAL MG/DL 02/20/2025 5:54 PM CDT [facility] BILIRUBIN (U) NEGATIVE NEGATIVE MG/DL 02/20/2025 5:54 PM CDT [facility] BLOOD (U) NEGATIVE NEGATIVE 02/20/2025 5:54 PM CDT [facility] URINE SPECIMEN OBTAINED BY CLEAN CATCH PROCEDURE / Unknown 02/20/2025 5:35 PM CDT us Brenda Her HEEL BUILDER MACHINE URINE ORDERABLES Final Resu lt [facility] [address] [facility] [place] [address], [place] [phone] from Last 3 Months Insurance [facility] Care Teams Senior Enterprise Architect Relationship Specialty Start Date End Date None, Provider, MD PCP - General UNKNOWN PHYSICIAN SPECIALTY 02/20/25
[2025-02-22 18:49] LABS: Beta HCG Quantitative 38839.00 mIU/ML
== END 2025-02-22 15:07 | disposition home or self-care (01) ==
PROVIDERS: PCP Internal Medicine; Visit Provider Student in an Organized Health Care Education/Training Program
DX: O20.9 Hemorrhage in early pregnancy, unspecified (principal); Z3A.00 Weeks of gestation of pregnancy not specified
CPT/HCPCS: 36415; 84702

== ENCOUNTER 2025-02-24 13:37 | Outpatient (CLI) | payer BC, SELFPAY ==
--- OUTSIDE RECORDS SUMMARY | 2025-02-24 13:39 | XMS_ITS | Clinical Summary ---
Author Organization [facility] Address [address] [place] [address] Care Team Providers Care Pin Attacher Name Role Phone Rolly Demarcus Christianne DO Primary Care Provider [phone] Source Comments [facility] [employer],non-owned Affiliates and Associated Physician Practices is amultiple site organization consisting of ambulatory clinics and hospital sitesin [place], [place], [place] and [place]. This disclosure is being madepursuant to the Care Everywhere program and may not contain all information available regarding this patient. Last updated 18.[facility] [employer] Allergies Active Allergy Reactions Criticality Noted Date Comments Codeine Nausea and/or Vomiting 05/20/2017 Latex Other 05/20/2017 Pt stated her skin will blister Penicillins Anaphylaxis High 05/20/2017 [place] Urticaria Medium 05/20/2017 Medications * Be aware [...] Comments Blood Pressure 140/82 05/26/2017 4:35 PM ROLLING MILL OPERATOR Pulse 74 05/25/2017 6:35 PM ROLLING MILL OPERATOR Temperature 36.7 C (98.1 F) 05/26/2017 4:35 PM ROLLING MILL OPERATOR Respiratory Rate 16 05/26/2017 4:35 PM ROLLING MILL OPERATOR Oxygen Saturation 99% 05/26/2017 4:35 PM ROLLING MILL OPERATOR Inhaled Oxygen Concentration - - Weight 83 kg (183 lb) 05/26/2017 8:10 AM ROLLING MILL OPERATOR Height 170.2 cm (5' 7) 05/21/2017 8:00 [...] Group B DOUGLAS 05/24/2017 4:10 PM CDT [facility] MICROBIOLOGY Microbiology MISCELLANEOUS SAMPLES / Unknown Collection / Unknown 05/21/2017 7:12 AM CDT 05/21/2017 7:27 AM CDT Barbie Solis MD LAB - MICROBIOLOGY ORDERA BLES Final Result [facility]CRO[facility] [address] [place] [address], [facility] [phone] from Last 3 Months or Most Recently Relevant to Health Maintenance Insurance [facility] Advance Directives * Full Code (Latest Code Status on File) Date Activated Date Inactivated Comments 05/22/2017 5:39 PM 05/26/2017 7:54 PM * Full Code Date Activated Date Inactivated Comments 05/20/2017 6:49 PM 05/22/2017 5:39 PM * Full Code Date Activated Date Inactivated Comments 05/20/2017 3:55 PM 05/20/2017 6:49 PM Care Teams Pin Attacher Relationship Specialty Start Date End Date Demarcus Lofton DO PCP - General Internal Medicine 05/20/17
[2025-02-24 15:25] LABS: Beta HCG Quantitative 62474.00 mIU/ML
== END 2025-02-24 13:38 | disposition home or self-care (01) ==
LOC: ANHLAB 13:37
PROVIDERS: PCP Internal Medicine; Visit Provider Student in an Organized Health Care Education/Training Program
DX: O20.9 Hemorrhage in early pregnancy, unspecified (principal); Z3A.00 Weeks of gestation of pregnancy not specified
CPT/HCPCS: 36415; 84702

== ENCOUNTER 2025-03-27 16:04 | Emergency (ER) | payer BC, SELFPAY ==
[2025-03-27 16:06] VITALS: BP 105/73; PULSE 80; RESP 16; TEMP 36.8; O2SAT 99
--- OUTSIDE RECORDS SUMMARY | 2025-03-27 16:06 | XMS_ITS | Clinical Summary ---
Author Organization [facility] Address [address] [place] [address] Care Team Providers Care Power Saw Mechanic Name Role Phone Rolly Demarcus Christianne DO Primary Care Provider [phone] Source Comments [facility] [employer],non-owned Affiliates and Associated Physician Practices is amultiple site organization consisting of ambulatory clinics and hospital sitesin [place], [place], [place] and [place]. This disclosure is being madepursuant to the Care Everywhere program and may not contain all information available regarding this patient. Last updated 18.[facility] [employer] Allergies Active Allergy Reactions Criticality Noted Date Comments Codeine Nausea and/or Vomiting 05/20/2017 Latex Other 05/20/2017 Pt stated her skin will blister Penicillins Anaphylaxis High 05/20/2017 [place] Urticaria Medium 05/20/2017 Medications * Be aware [...] Date Supervision of high-risk of young kai igravida 05/20/2017 Overview (05/20/2017): Consult from Dr. Villasenor [...] Comments Blood Pressure 140/82 05/26/2017 4:35 PM BUTADIENE CONVERTER HELPER Pulse 74 05/25/2017 6:35 PM BUTADIENE CONVERTER HELPER Temperature 36.7 C (98.1 F) 05/26/2017 4:35 PM BUTADIENE CONVERTER HELPER Respiratory Rate 16 05/26/2017 4:35 PM BUTADIENE CONVERTER HELPER Oxygen Saturation 99% 05/26/2017 4:35 PM BUTADIENE CONVERTER HELPER Inhaled Oxygen Concentration - - Weight 83 kg (183 lb) 05/26/2017 8:10 AM BUTADIENE CONVERTER HELPER Height 170.2 cm (5' 7) 05/21/2017 8:00 AM CDT Body Mass Index 28.66 05/21/2017 8:00 AM CDT Plan of Treatment Health Maintenance Due Date Last Done Comments HIV SCREENING 10/03/2003 HEPATITIS C SCREENING 09/28/2006 DTAP/TDAP/TD VACCINES (1 - Tdap) 10/03/2007 HEPATITIS B VACCINE (1 of 3 - 19+ 3-dose series) 10/03/2007 HPV VACCINE (1 - 3-dose SCDM series) 10/03/2015 DEPRESSION SCREENING 07/21/2024 COVID-19 VACCINE (2023-2 5 season) 2025 INFLUENZA VACCINE (#1) 2025 ZOSTER VACCINE (1 [...] Group B DOUGLAS 05/24/2017 4:10 PM CDT [facility] MICROBIOLOGY Microbiology MISCELLANEOUS SAMPLES / Unknown Collection / Unknown 05/21/2017 7:12 AM CDT 05/21/2017 7:27 AM CDT Barbie Solis MD LAB - MICROBIOLOGY ORDERA BLES Final Result [facility] MICROBIOLOGY [address] [place] [address], [facility] [phone] from Last 3 Months or Most Recently Relevant to Health Maintenance Insurance [facility] Advance Directives * Full Code (Latest Code Status on File) Date Activated Date Inactivated Comments 05/22/2017 5:39 PM 05/26/2017 7:54 PM * Full Code Date Activated Date Inactivated Comments 05/20/2017 6:49 PM 05/22/2017 5:39 PM * Full Code Date Activated Date Inactivated Comments 05/20/2017 3:55 PM 05/20/2017 6:49 PM Care Teams Power Saw Mechanic Relationship Specialty Start Date End Date Demarcus Lofton DO PCP - General Internal Medicine 05/20/17
--- OUTSIDE RECORDS SUMMARY | 2025-03-27 16:06 | XMS_ITS | Clinical Summary ---
Author Organization [facility] Address [address] [place] [address] Care Team Providers Care Marking Room Supervisor Name Role Phone None, Provider MD Primary Care Provider Unavaila ble Allergies Active Allergy Reactions Criticality Noted Date Comments Penicillins Anaphylaxis High 02/20/2025 Medications No known medications Encounters Date Type Department Care Team Description 02/20/2025 5:35 PM CDT - 02/20/2025 10:43 PM CDT Emergency [facility] [place] [address] Brenda Her, DRIER TRANSFER CAR OPERATOR Vaginal Bleeding Discharge Disposition: Home or Self [...] HPV 2018 COVID-19 Vaccine (2023-2 5 season) 2025 RSV Immunization or 60+ Years (1 - [...] 9:45 PM Narrative 02/20/2025 10:01 PM CDT [address] [address] EXAM: US OB TRANSVAG DATE: 02/20/2025 COMPARISON: [...] Procedure Note Huan Brooks MD - 02/20/[address] [address] EXAM: US OB TRANSVAG DATE: 02/20/2025 COMPARISON: [...] Brooks MD, 02/20/2025 9:45 PM Brenda Her [facility]TR[facility] Final Resul t * BLOOD TYPING, ABO AND RH (02/20/2025 7:17 PM CDT) ABO/RH O POSITIVE 02/20/2025 7:43 PM CDT [facility] 02/20/2025 7:17 PM CDT Brenda Her [facility] BLOOD BANK TEST ORDERABLES Final Result [facility] [address] [address], [place] [phone] * Quantitative HCG (02/20/2025 5:43 PM CDT) HCG QUANTITATIVE 21,226 MIU/ML 02/21/20 6:40 PM CDT [facility] Comment: WEEKS OF REFERENCE RANGES Non- [...] 02/20/2025 5:43 PM CDT us Brenda Her [facility] Final Resul t [facility] [address] [place] [address], * (ABNORMAL) COMPREHENSIVE METABOLIC PANEL (02/20/2025 5:38 PM CDT) GLUCOSE 84 70 - 99 MG/DL 02/20/2025 6:22 PM CDT [facility] BUN 6(L) 7 - 18 MG/DL 02/20/2025 6:22 PM CDT [facility] CREATININE S/P/B 0.59 0.55 - 1.02 MG/DL 02/20/2025 6:22 PM CDT [facility] SODIUM S/P/B 136 136 - 145 MMOL/L 02/20/2025 6:22 PM CDT [facility] POTASSIUM S/P/B 3.5 3.5 - 5.1 MMOL/L 02/20/2025 6:22 PM CDT [facility] CHLORIDE S/P/B 105 97 - 115 MMOL/L 02/20/2025 6:22 PM CDT [facility] CO2 26.0 21 - 32 MMOL/L 02/20/2025 6:22 PM CDT [facility] CALCIUM S/P/B 9.7 8.5 - 10.1 MG/DL 02/20/2025 6:22 PM CDT [facility] BILIRUBIN TOTAL S/P/B 0.4 0.2 - 1.2 MG/DL 02/20/2025 6:22 PM CDT [facility] Comment: THIS ASSAY IS NOT RECOMMENDED FOR PATIENTS UNDERGOING TREATMENT WITH ELTROMBOPAG DUE TO THE POTENTIAL FOR FALSELY ELEVATED RESULTS. TOTAL PROTEIN S/P/B 7.4 6.4 - 8.2 G/DL 02/20/2025 6:22 PM CDT [facility] ALBUMIN S/P/B 3.9 3.4 - 5.0 G/DL 02/20/2025 6:22 PM CDT [facility] AST 12(L) 15 - 37 U/L 02/20/2025 6:22 PM CDT [facility] ALT 18 14 - 55 U/L 02/20/2025 6:22 PM CDT [facility] ALKALINE PHOSPHATASE S/P/B 56 50 - 136 U/L 02/20/2025 6:22 PM CDT [facility] ANION GAP 5.0 2 - 10 MMOL/L 02/20/2025 6:22 PM CDT [facility] BUN CREATININE RATIO 10.2 6 - 26 02/20/2025 6:22 PM CDT [facility] A/G RATIO 1.1 1.0 - 2.0 RATIO 02/20/2025 6:22 PM CDT [facility] GFR ESTIMATE >90 >90 ML/MIN/1.7 3 M2 02/20/2025 6:22 PM CDT [facility] Comment: NOTE: eGFR is not calculated for patients <18 years of age or gender unknown. This is an estimated GFR calculation using the new CKD EPI creatinine equation without race and so does not require a correction factor for race. This estimated GFR should not be used for calculating drug doses. 02/20/2025 5:38 PM CDT us Brenda Her DRIER TRANSFER CAR OPERATOR LABORATORY Final Resul t [facility] [address] [place] [address], [place] [phone] * (ABNORMAL) CBC W/DIFF AUTOMATED (02/20/2025 5:38 PM CDT) WBC 7.29 4.5 - 11.0 x10'3/uL 02/20/2025 6:07 PM CDT [facility] RBC 4.04(L) 4.20 - 5.40 x10'6/uL 02/20/2025 6:07 PM CDT [facility] HGB 12.2 12.0 - 16.0 G/DL 02/20/2025 6:07 PM CDT [facility] HCT 36.1(L) 38.0 - 48.0 % 02/20/2025 6:07 PM CDT [facility] MCV 89.4 81.0 - 99.0 FL 02/20/2025 6:07 PM CDT [facility] MCH 30.2 27.0 - 31.0 PG 02/20/2025 6:07 PM CDT [facility] MCHC 33.8 32.0 - 36.0 G/DL 02/20/2025 6:07 PM CDT [facility] RDW 13.0 11.5 - 14.5 % 02/20/2025 6:07 PM CDT [facility] PLT 234 130 - 400 x10'3/uL 02/20/2025 6:07 PM CDT [facility] MPV 9.7 9.3 - 12.2 FL 02/20/2025 6:07 PM CDT [facility] DIFFERENTIAL TYPE AUTOMATED DIFFERENTIAL 02/20/2025 6:07 PM CDT [facility] NEUTROPHILS % 67.0 % 02/20/2025 6:07 PM CDT [facility] LYMPHOCYTES % 25.7 % 02/20/2025 6:07 PM CDT [facility] MONOCYTES % 6.0 % 02/20/2025 6:07 PM CDT [facility] EOSINOPHILS 0.3 % 02/20/2025 6:07 PM CDT [facility] BASOPHILS 0.7 % 02/20/2025 6:07 PM CDT [facility] IMMATURE GRANS % 0.3 % 02/21/20 25 6:07 PM CDT [facility] ABS. NEUTROPHILS 4.89 1.80 - 7.70 x10'3/uL 02/20/2025 6:07 PM CDT [facility] ABS. LYMPHOCYTES 1.87 1.00 - 4.80 x10'3/uL 02/20/2025 6:07 PM CDT [facility] ABS. MONOCYTES 0.44 0.24 - 0.86 x10'3/uL 02/20/2025 6:07 PM CDT [facility] ABS. EOSINOPHILS 0.02(L) 0.04 - 0.36 x10'3/uL 02/20/2025 6:07 PM CDT [facility] ABS. BASOPHILS 0.05 0.01 - 0.08 x10'3/uL 02/20/2025 6:07 PM CDT [facility] ABS. IMMATURE GRANULOCYTES 0.02 0.00 - 0.49 x10'3/uL 02/20/2025 6:07 PM CDT [facility] 02/20/2025 5:38 PM CDT us Brenda Her DRIER TRANSFER CAR OPERATOR LABORATORY Final Resul t [facility] [address] [place] [address], * URINALYSIS (02/20/2025 5:35 PM CDT) SPECIMEN TYPE URINE CLEAN CATCH 02/20/2025 5:35 PM CDT [facility] COLOR (U) COLORLESS 02/20/2025 5:54 PM CDT [facility] TRANSPARENCY CLEAR 02/20/2025 5:54 PM CDT [facility] SPECIFIC GRAVITY (U) 1.005 1.001 - 1.030 02/20/2025 5:54 PM CDT [facility] U PH 6.5 5.0 - 9.0 02/20/2025 5:54 PM CDT [facility] LEUKOCYTES (U) NEGATIVE NEGATIVE 02/20/2025 5:54 PM CDT [facility] NITRITES NEGATIVE NEGATIVE 02/20/2025 5:54 PM CDT [facility] PROTEIN RANDOM (U) NEGATIVE <30 MG/DL 02/20/2025 5:54 PM CDT [facility] GLUCOSE (U) NORMAL NORMAL MG/DL 02/20/2025 5:54 PM CDT [facility] KETONES MG/DL (U) NEGATIVE NEGATIVE MG/DL 02/20/2025 5:54 PM CDT [facility] UROBILINOGEN NORMAL NORMAL MG/DL 02/20/2025 5:54 PM CDT [facility] BILIRUBIN (U) NEGATIVE NEGATIVE MG/DL 02/20/2025 5:54 PM CDT [facility] BLOOD (U) NEGATIVE NEGATIVE 02/20/2025 5:54 PM CDT [facility] URINE SPECIMEN OBTAINED BY CLEAN CATCH PROCEDURE / Unknown 02/20/2025 5:35 PM CDT us Brenda Her DRIER TRANSFER CAR OPERATOR URINE ORDERABLES Final Resu lt [facility] [address] [facility] [place] [address], [place] [phone] from Last 3 Months Insurance [facility] Care Teams Marking Room Supervisor Relationship Specialty Start Date End Date None, Provider, MD PCP - General UNKNOWN PHYSICIAN SPECIALTY 02/20/25
[2025-03-27 16:24] VITALS: PULSE 73; RESP 18; O2SAT 99
[2025-03-27] MEDS: LACTATED RINGERS 1,000 ML 999 ML IV CONT ×2 (16:31→17:50)
[2025-03-27 16:36] LABS: Hematocrit 33.5 % (37.0-47.0); Hemoglobin 11.3 g/dL (12.0-15.0); Immature Granulocyte Percent A 0.5 % (0-0.5); Lymphocytes Absolute Auto 1.91 K/mm3 (0.9-3.2); Mean Corpuscular HGB Conc 33.7 g/dl (32-36); Mean Corpuscular Hemoglobin 30.1 pg (26-34); Mean Corpuscular Volume 89.3 fl (80-100); Nucleated Red Blood Cells Absolute Auto 0.000 K/mm3 (0.0-0.012); Nucleated Red Blood Cells Perc 0.0 % (0.0-0.2); Platelet Count Result 209 k/mm3 (150-375); Red Blood Count 3.75 M/mm3 (4.2-5.4); White Blood Count 9.9 K/mm3 (4.5-10.0)
--- OUTSIDE RECORDS SUMMARY | 2025-03-27 16:47 | XMS_ITS | Clinical Summary ---
Author Organization [facility] Address [address] [place] [address] Care Team Providers Care Plumber Name Role Phone Rolly Demarcus Christianne DO Primary Care Provider [phone] [phone] Source Comments [facility] [employer],non-owned Affiliates and Associated Physician Practices is amultiple site organization consisting of ambulatory clinics and hospital sitesin [place], [place], [place] and [place]. This disclosure is being madepursuant to the Care Everywhere program and may not contain all information available regarding this patient. Last updated 18.[facility] Allergies Active Allergy Reactions Criticality Noted Date Comments Codeine Nausea and/or Vomiting 05/20/2017 Latex Other 05/20/2017 Pt stated her skin will blister Penicillins Anaphylaxis High 05/20/2017 Cuttyhunk Urticaria Medium 05/20/2017 Medications * Be aware [...] Comments Blood Pressure 140/82 05/26/2017 4:35 PM [employer] Pulse 74 05/25/2017 6:35 PM [employer] Temperature 36.7 C (98.1 F) 05/26/2017 4:35 PM [employer] Respiratory Rate 16 05/26/2017 4:35 PM [employer] Oxygen Saturation 99% 05/26/2017 4:35 PM [employer] Inhaled Oxygen Concentration - - Weight 83 kg (183 lb) 05/26/2017 8:10 AM [employer] Height 170.2 cm (5' 7) 05/21/2017 8:00 [...] Group B DOUGLAS 05/24/2017 4:10 PM CDT [facility] Microbiology MISCELLANEOUS SAMPLES / Unknown Collection / Unknown 05/21/2017 7:12 AM CDT 05/21/2017 7:27 AM CDT Barbie Solis MD LAB - MICROBIOLOGY ORDERA BLES Final Result [facility] [address] [place] [address], [facility] [[email or web address]] [phone] from Last 3 Months or Most Recently Relevant to Health Maintenance Insurance [facility] Advance Directives * Full Code (Latest Code Status on File) Date Activated Date Inactivated Comments 05/22/2017 5:39 PM 05/26/2017 7:54 PM * Full Code Date Activated Date Inactivated Comments 05/20/2017 6:49 PM 05/22/2017 5:39 PM * Full Code Date Activated Date Inactivated Comments 05/20/2017 3:55 PM 05/20/2017 6:49 PM Care Teams Plumber Relationship Specialty Start Date End Date Demarcus Lofton DO PCP - General Internal Medicine 05/20/17
--- OUTSIDE RECORDS SUMMARY | 2025-03-27 16:47 | XMS_ITS | Clinical Summary ---
Author Organization [facility] Address [address] [place] [id number] Care Team Providers Care Clean Up Person Name Role Phone None, Provider MD Primary Care Provider Unavaila ble Allergies Active Allergy Reactions Criticality Noted Date Comments Penicillins Anaphylaxis High 02/20/2025 Medications No known medications Encounters Date Type Department Care Team Description 02/20/2025 5:35 PM CDT - 02/20/2025 10:43 PM CDT Emergency [facility] [place] [address] Brenda Her, MIXER OPERATOR [employer]ALT Vaginal Bleeding Discharge Disposition: Home or Self [...] 9:45 PM Narrative 02/20/2025 10:01 PM CDT [address] [address] EXAM: US OB TRANSVAG DATE: 02/20/2025 COMPARISON: [...] Procedure Note Huan Brooks MD - 02/20/[address] [address] EXAM: US OB TRANSVAG DATE: 02/20/2025 COMPARISON: [...] Brooks MD, 02/20/2025 9:45 PM Brenda Her [facility] ULTRASOUND Final Resul t * BLOOD TYPING, ABO AND RH (02/20/2025 7:17 PM CDT) ABO/RH O POSITIVE 02/20/2025 7:43 PM CDT [facility] 02/20/2025 7:17 PM CDT Brenda Her [facility] BLOOD BANK TEST ORDERABLES Final Result [facility] [address] [address], [place] [phone] * Quantitative HCG (02/20/2025 5:43 PM CDT) HCG QUANTITATIVE 21,226 MIU/ML 02/21/20 6:40 PM CDT [facility] Comment: WEEKS OF REFERENCE [...] 02/20/2025 5:43 PM CDT us Brenda Her [facility]ORATORY Final Resul t [facility] [address] [place] [address], * (ABNORMAL) COMPREHENSIVE METABOLIC PANEL (02/20/2025 5:38 PM CDT) GLUCOSE 84 70 - 99 MG/DL 02/20/2025 6:22 PM CDT [facility] BUN 6(L) 7 - 18 MG/DL 02/20/2025 6:22 PM CDT [facility] CREATININE S/P/B 0.59 0.55 - 1.02 MG/DL 02/20/2025 6:22 PM CDT [facility] SODIUM S/P/B 136 136 - 145 MMOL/L 02/20/2025 6:22 PM CDT [facility] POTASSIUM S/P/B 3.5 3.5 - 5.1 MMOL/L 02/20/2025 6:22 PM CDT [facility] CHLORIDE S/P/B 105 97 - 115 MMOL/L 02/20/2025 6:22 PM CDT [facility] CO2 26.0 21 - 32 MMOL/L 02/20/2025 6:22 PM CDT [facility] CALCIUM S/P/B 9.7 8.5 - 10.1 MG/DL 02/20/2025 6:22 PM CDT [facility] BILIRUBIN TOTAL S/P/B 0.4 0.2 - 1.2 MG/DL 02/20/2025 6:22 PM CDT [facility] Comment: THIS ASSAY IS NOT RECOMMENDED FOR PATIENTS UNDERGOING TREATMENT WITH ELTROMBOPAG DUE TO THE POTENTIAL FOR FALSELY ELEVATED RESULTS. TOTAL PROTEIN S/P/B 7.4 6.4 - 8.2 G/DL 02/20/2025 6:22 PM CDT [facility] ALBUMIN S/P/B 3.9 3.4 - 5.0 G/DL 02/20/2025 6:22 PM CDT [facility] AST 12(L) 15 - 37 U/L 02/20/2025 6:22 PM CDT [facility] ALT 18 14 - 55 U/L 02/20/2025 6:22 PM CDT [facility] ALKALINE PHOSPHATASE S/P/B 56 50 - 136 U/L 02/20/2025 6:22 PM CDT [facility] ANION GAP 5.0 2 - 10 MMOL/L 02/20/2025 6:22 PM CDT [facility] BUN CREATININE RATIO 10.2 6 - 26 02/20/2025 6:22 PM CDT [facility] A/G RATIO 1.1 1.0 - 2.0 RATIO 02/20/2025 6:22 PM CDT [facility] GFR ESTIMATE >90 >90 ML/MIN/1.7 3 M2 02/20/2025 6:22 PM CDT [facility] Comment: NOTE: eGFR is not calculated for patients <18 years of age or gender unknown. This is an estimated GFR calculation using the new CKD EPI creatinine equation without race and so does not require a correction factor for race. This estimated GFR should not be used for calculating drug doses. 02/20/2025 5:38 PM CDT us Brenda Her MIXER OPERATOR [employer] LABORATORY Final Resul t [facility] [address] [place] [address], [place] [phone] * (ABNORMAL) CBC W/DIFF AUTOMATED (02/20/2025 5:38 PM CDT) WBC 7.29 4.5 - 11.0 x10'3/uL 02/20/2025 6:07 PM CDT [facility] RBC 4.04(L) 4.20 - 5.40 x10'6/uL 02/20/2025 6:07 PM CDT [facility] HGB 12.2 12.0 - 16.0 G/DL 02/20/2025 6:07 PM CDT [facility] HCT 36.1(L) 38.0 - 48.0 % 02/20/2025 6:07 PM CDT [facility] MCV 89.4 81.0 - 99.0 FL 02/20/2025 6:07 PM CDT [facility] MCH 30.2 27.0 - 31.0 PG 02/20/2025 6:07 PM CDT [facility] MCHC 33.8 32.0 - 36.0 G/DL 02/20/2025 6:07 PM CDT [facility] RDW 13.0 11.5 - 14.5 % 02/20/2025 6:07 PM CDT [facility] PLT 234 130 - 400 x10'3/uL 02/20/2025 6:07 PM CDT [facility] MPV 9.7 9.3 - 12.2 FL 02/20/2025 6:07 PM CDT [facility] DIFFERENTIAL TYPE AUTOMATED DIFFERENTIAL 02/20/2025 6:07 PM CDT [facility] NEUTROPHILS % 67.0 % 02/20/2025 6:07 PM CDT [facility] LYMPHOCYTES % 25.7 % 02/20/2025 6:07 PM CDT [facility] MONOCYTES % 6.0 % 02/20/2025 6:07 PM CDT [facility] EOSINOPHILS 0.3 % 02/20/2025 6:07 PM CDT [facility] BASOPHILS 0.7 % 02/20/2025 6:07 PM CDT [facility] IMMATURE GRANS % 0.3 % 02/21/20 25 6:07 PM CDT [facility] ABS. NEUTROPHILS 4.89 1.80 - 7.70 x10'3/uL 02/20/2025 6:07 PM CDT [facility] ABS. LYMPHOCYTES 1.87 1.00 - 4.80 x10'3/uL 02/20/2025 6:07 PM CDT [facility] ABS. MONOCYTES 0.44 0.24 - 0.86 x10'3/uL 02/20/2025 6:07 PM CDT [facility] ABS. EOSINOPHILS 0.02(L) 0.04 - 0.36 x10'3/uL 02/20/2025 6:07 PM CDT [facility] ABS. BASOPHILS 0.05 0.01 - 0.08 x10'3/uL 02/20/2025 6:07 PM CDT [facility] ABS. IMMATURE GRANULOCYTES 0.02 0.00 - 0.49 x10'3/uL 02/20/2025 6:07 PM CDT [facility] 02/20/2025 5:38 PM CDT us Brenda Her MIXER OPERATOR [employer] LABORATORY Final Resul t [facility] [address] [place] [address], * URINALYSIS (02/20/2025 5:35 PM CDT) SPECIMEN TYPE URINE CLEAN CATCH 02/20/2025 5:35 PM CDT [facility] COLOR (U) COLORLESS 02/20/2025 5:54 PM CDT [facility] TRANSPARENCY CLEAR 02/20/2025 5:54 PM CDT [facility] SPECIFIC GRAVITY (U) 1.005 1.001 - 1.030 02/20/2025 5:54 PM CDT [facility] U PH 6.5 5.0 - 9.0 02/20/2025 5:54 PM CDT [facility] LEUKOCYTES (U) NEGATIVE NEGATIVE 02/20/2025 5:54 PM CDT [facility] NITRITES NEGATIVE NEGATIVE 02/20/2025 5:54 PM CDT [facility] PROTEIN RANDOM (U) NEGATIVE <30 MG/DL 02/20/2025 5:54 PM CDT [facility] GLUCOSE (U) NORMAL NORMAL MG/DL 02/20/2025 5:54 PM CDT [facility] KETONES MG/DL (U) NEGATIVE NEGATIVE MG/DL 02/20/2025 5:54 PM CDT [facility] UROBILINOGEN NORMAL NORMAL MG/DL 02/20/2025 5:54 PM CDT [facility] BILIRUBIN (U) NEGATIVE NEGATIVE MG/DL 02/20/2025 5:54 PM CDT [facility] BLOOD (U) NEGATIVE NEGATIVE 02/20/2025 5:54 PM CDT [facility] URINE SPECIMEN OBTAINED BY CLEAN CATCH PROCEDURE / Unknown 02/20/2025 5:35 PM CDT us Brenda Her MIXER OPERATOR [employer]ALT URINE ORDERABLES Final Resu lt [facility] [address] [facility] [place] [address], [place] [phone] from Last 3 Months Insurance [facility] Care Teams Clean Up Person Relationship Specialty Start Date End Date None, Provider, MD PCP - General UNKNOWN PHYSICIAN SPECIALTY 02/20/25
[2025-03-27 16:51] LABS: Alanine Aminotransferase 12 U/L (6-35); Albumin Level 3.8 g/dL (3.5-5.1); Alkaline Phosphatase 55 U/L (38-126); Anion Gap 7 mmol/L (4-12); Aspartate Amino Transferase 23 U/L (14-36); Bilirubin,Total 0.3 mg/dL (0.2-1.3); Blood Urea Nitrogen 7 mg/dL (7-17); Calcium 8.9 mg/dL (8.4-10.2); Carbon Dioxide 20 mmol/L (22-30); Chloride 105 mmol/L (98-107); Estimated CRCL calculation 119 ml/min; Estimated Glomerular Filt Rate > 60; Glucose 92 mg/dL (65-110); Potassium 3.9 mmol/L (3.4-5.0); Sodium 132 mmol/L (137-145); Total Protein 6.7 g/dL (6.3-8.2)
--- NOTE | 2025-03-27 17:04 | PC.NURSE ---
Patient ambulated to the restroom
[2025-03-27 17:37] LABS: Add Urine Microscopic? YES; Appearance Urine Clear (Clear); Glucose Urine UA Negative (Negative); Leukocyte Esterase Ur Trace LEU/UL (Negative); Nitrate Urine Negative (Negative); Non Pathogenic Casts 0-2; Specific Grav Ur 1.015 (1.001-1.035)
--- NOTE | 2025-03-27 18:06 | ED.GENADULT ---
HPI - General Adult General Chief complaint: Nausea/Vomiting/Diarrhea Stated complaint: 12 wks preg, N/V, sent for fluids Time Seen by Provider: 03/27/25 16:17 History of Present Illness HPI narrative: 34-year-old female presents to the emergency department for evaluation for persistent nausea and vomiting and dehydration. Patient is approximately 12 weeks , this is the patient's 7th . Patient does follow-up with Dr. Hoskins. She was instructed by Ob did present to emergency department for additional fluids. Patient has had longstanding issues with hyperemesis gravidarum with this and is on high doses of oral Zofran 3 times a day. Patient states that she did back down the Zofran had worsening nausea and vomiting resulting an worsening dehydration over the last few days. Denies any THC use and denies any pain with urination. Related Data Allergies Allergy/AdvReac Type Severity Reaction Status Date / Time codeine Allergy Intermediate Unknown Verified 03/27/25 16:05 latex Allergy Intermediate Blister Verified 03/27/25 16:05 Penicillins Allergy Intermediate NAUSEA/RASH Verified 03/27/25 16:05 strawberry Allergy Intermediate Hives Verified 03/27/25 16:05 Review of Systems Review of Systems: All systems reviewed & are unremarkable except as noted in HPI and below PMFSH Past Medical History Medical History (Updated 03/27/25 @ 18:10 by Stanford Malhotra MD) Advanced maternal age in multigravida Advanced maternal age affecting , antepartum Suppression of menses Migraine Anxiety and depression Previous known suicide attempt Attention deficit disorder Anxiety Swallowing difficulty Eating disorder Depression Allergies Cyst of face Surgical History Surgical History H/O dilation and curettage Family History Family History Mother Family history of mental disorder Heart palpitations Anxiety Sibling Patient's sister is in good health, Onset Age: 18 Father Family history of diabetes mellitus in first degree relative Diabetes mellitus Social History Social History Social History: Caffeine- coffee/soda/energy drinks Smoking packs per day: 0.50 Smoking cigarettes per day: 10.0 Years smoked: 1 Smoking pack-years: 0.50 Smoking status: Current every day smoker Smoking end date: 07/21/18 Alcohol intake: never Substance use: former 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 EYES: PERRLA/EOMI, conjunctivae clear. NOSE: Normal no drainage EARS:TMS clear with good light reflex. THROAT: Pharynx clear, no exudate. NECK: Supple. No adenopathy, no masses. RESPIRATORY: Airway patent, respirations nonlabored. Clear to auscultation bilaterally, no rales, rhonchi, wheezing. CARDIOVASCULAR: Regular rate and rhythm without murmurs rubs or gallops. ABDOMINAL: Soft, nontender, nondistended, normal bowel sounds MUSCULOSKELETAL: Moves all extremities. Strength/ROM intact, No edema, No calf tenderness. NEURO: Alert. Cranial nerves II through XII intact. Grossly intact SKIN: Warm, dry. Normal Color Course Vital Signs Vital signs: Vital Signs Temperature 98.3 F 03/27/25 16:06 Pulse Rate 80 03/27/25 16:06 Respiratory Rate 16 03/27/25 16:06 Blood Pressure 105/73 03/27/25 16:06 Pulse Oximetry 99 03/27/25 16:06 Oxygen Delivery Room Air 03/27/25 16:06 Temperature 98.3 F 03/27/25 16:06 Pulse Rate 73 03/27/25 16:24 Respiratory Rate 18 03/27/25 16:24 Blood Pressure 105/73 03/27/25 16:06 Pulse Oximetry 99 03/27/25 16:24 Oxygen Delivery Room Air 03/27/25 16:24 Medical Decision Making [facility] Narrative Medical decision making narrative: 34-year-old female presents to the emergency department for evaluation for rehydration after hyperemesis gravidarum. Patient was treated with 2 L lactated Ringer's. Patient is afebrile with no leukocytosis hemoglobin 11.3. No significant abnormalities on her CMP with a creatinine 0.51. UA is negative for infection. Patient did feel improved with rehydration. Patient does have antiemetics at home. Patient will have close follow-up with OB Gyne. Differential Diagnosis Differential Diagnosis: Hyperemesis gravidarum, CABG hyperemesis syndrome, dehydration, adverse medication reaction Vital Signs Vital Signs: Vital Signs Temperature 98.3 F 03/27/25 16:06 Pulse Rate 80 03/27/25 16:06 Respiratory Rate 16 03/27/25 16:06 Blood Pressure 105/73 03/27/25 16:06 Pulse Oximetry 99 03/27/25 16:06 Oxygen Delivery Room Air 03/27/25 16:06 Temperature 98.3 F 03/27/25 16:06 Pulse Rate 73 03/27/25 16:24 Respiratory Rate 18 03/27/25 16:24 Blood Pressure 105/73 03/27/25 16:06 Pulse Oximetry 99 03/27/25 16:24 Oxygen Delivery Room Air 03/27/25 16:24 Lab Data Lab results reviewed: Yes I reviewed the patient's lab results. 03/27/25 16:30 03/27/25 16:30 Labs: Lab Results 03/27/25 03/27/25 Range/Units 16:30 17:13 WBC 9.9 (4.5-10.0) K/mm3 RBC 3.75 L (4.2-5.4) M/mm3 Hgb 11.3 L (12.0-15.0) g/dL Hct 33.5 L (37.0-47.0) % MCV 89.3 (80-100) fl MCH 30.1 (26-34) pg MCHC 33.7 (32-36) g/dl RDW 12.8 (11.5-14.5) % Plt Count 209 (150-375) k/mm3 MPV 9.9 (7.4-10.4) fl Immature Gran % (Auto) 0.5 (0-0.5) % Neut % (Auto) 71.7 (45.5-73.1) % Lymph % (Auto) 19.3 (18.3-44.2) % [place] % (Auto) 7.5 (2.6-8.5) % Eos % (Auto) 0.7 (0-4.4) % Baso % (Auto) 0.3 (0.2-1.2) % Lymph # (Auto) 1.91 (0.9-3.2) K/mm3 [place] # (Auto) 0.7 H (0.1-0.6) K/mm3 Eos # (Auto) 0.1 (0-0.3) K/mm3 Baso # (Auto) 0.0 (0.0-0.1) K/mm3 Abs Immat Gran (auto) 0.05 H (0.00-0.031) K/mm3 Absolute Neuts (auto) 7.1 H (1.3-6.7) K/mm3 Absolute Nucleated RBC 0.000 (0.0-0.012) K/mm3 Nucleated RBC % 0.0 (0.0-0.2) % Sodium 132 L (137-145) mmol/L Potassium 3.9 (3.4-5.0) mmol/L Chloride 105 (98-107) mmol/L Carbon Dioxide 20 L (22-30) mmol/L Anion Gap 7 (4-12) mmol/L BUN 7 (7-17) mg/dL Creatinine 0.51 L (0.7-1.0) mg/dL Estim Creat Clear Calc 119 ml/min Estimated GFR > 60 (59 - ) Glucose 92 (65-110) mg/dL Calcium 8.9 (8.4-10.2) mg/dL Total Bilirubin 0.3 (0.2-1.3) mg/dL AST 23 (14-36) U/L ALT 12 (6-35) U/L Alkaline Phosphatase 55 (38-126) U/L Total Protein 6.7 (6.3-8.2) g/dL Albumin 3.8 (3.5-5.1) g/dL Urine Color Yellow (Yellow) Urine Appearance Clear (Clear) Urine pH 6.5 (5.0-9.0) Ur Specific [place] 1.015 (1.001-1.035) Urine Protein Negative (Negative) mg/dL Urine Glucose (UA) Negative (Negative) mg/dL Urine Ketones Negative (Negative) mg/dL Ur Blood (Man) Trace-intact H (Negative) Urine Nitrate Negative (Negative) Urine Bilirubin Negative (Negative) Urine Urobilinogen 0.2 (<2.0) mg/dL Leukocyte Esterase Rfl Trace H (Negative) [place]/UL Urine RBC 0-2 (0-2) /hpf Urine WBC 0-5 (0-3) /hpf Ur Squamous Epith Cells None seen (Few) /hpf Urine Bacteria Rare /hpf Urine Casts 0-2 Discharge Plan Discharge Clinical Impression: Hyperemesis gravidarum, Dehydration Patient Disposition: Home Condition: Stable Instructions: Antibiotic Form, Hyperemesis Gravidarum (ED) Additional Instructions: Home medications for nausea and vomiting. Continue to have close follow-up with OB Gyne. If you have any worsening symptoms and please call or return to the emergency department. Patient Language: [place] Prescriptions: No Action promethazine 12.5 mg tablet 12.5 mg PO TID Qty: 30 1RF ondansetron HCl 4 mg tablet 8 mg PO Q6H PRN (Reason: nausea and vomiting) Qty: 30 1RF venlafaxine 75 mg capsule,extended release 24hr 75 mg PO DAILY Qty: 90 0RF Rx Instructions: NEEDS APPOINTMENT FOR ANY FURTHER REFILLS Follow-up/Referrals: Demarcus Lofton DO [Primary Care Provider, Internal Medicine]
[2025-03-27 19:59] VITALS: BP 123/71; PULSE 69; RESP 18; O2SAT 100
== END 2025-03-27 20:00 | disposition home or self-care (01) ==
PROVIDERS: Emergency Provider Emergency Medicine; PCP Internal Medicine
DX: O21.1 Hyperemesis gravidarum with metabolic disturbance (principal); Z3A.12 12 weeks gestation of pregnancy; E86.0 Dehydration
CPT/HCPCS: 36415; 80053; 81001; 85025; 96360; 96361; 99283; J7120

== ENCOUNTER 2025-04-17 15:20 | Emergency (ER) | payer BC, SELFPAY ==
[2025-04-17 15:22] VITALS: BP 150/83; PULSE 71; RESP 18; TEMP 36.9; O2SAT 100
--- OUTSIDE RECORDS SUMMARY | 2025-04-17 15:22 | XMS_ITS | Clinical Summary ---
Author Organization [facility] Address [address] [place] [address] Care Team Providers Care Digital Solution Architect Name Role Phone Rolly Demarcus Christianne DO Primary Care Provider [phone] Source Comments [facility],non-owned Affiliates and Associated Physician Practices is amultiple site organization consisting of ambulatory clinics and hospital sitesin [place], [place], [place] and [place]. This disclosure is being madepursuant to the Care Everywhere program and may not contain all information available regarding this patient. Last updated 18.[facility] Allergies Active Allergy Reactions Criticality Noted Date Comments Codeine Nausea and/or Vomiting 05/20/2017 Latex Other 05/20/2017 Pt stated her skin will blister Penicillins Anaphylaxis High 05/20/2017 [place] Urticaria Medium 05/20/2017 Medications * Be aware [...] Comments Blood Pressure 140/82 05/26/2017 4:35 PM PRINT ROOM WORKER Pulse 74 05/25/2017 6:35 PM PRINT ROOM WORKER Temperature 36.7 C (98.1 F) 05/26/2017 4:35 PM PRINT ROOM WORKER Respiratory Rate 16 05/26/2017 4:35 PM PRINT ROOM WORKER Oxygen Saturation 99% 05/26/2017 4:35 PM PRINT ROOM WORKER Inhaled Oxygen Concentration - - Weight 83 kg (183 lb) 05/26/2017 8:10 AM PRINT ROOM WORKER Height 170.2 cm (5' 7) 05/21/2017 8:00 [...] Group B DOUGLAS 05/24/2017 4:10 PM CDT [facility] Microbiology MISCELLANEOUS SAMPLES / Unknown Collection / Unknown 05/21/2017 7:12 AM CDT 05/21/2017 7:27 AM CDT Barbie Solis MD LAB - MICROBIOLOGY ORDERA BLES Final Result [facility] [address] [place] [address], [facility] [phone] from Last 3 Months or Most Recently Relevant to Health Maintenance Insurance [facility] Advance Directives * Full Code (Latest Code Status on File) Date Activated Date Inactivated Comments 05/22/2017 5:39 PM 05/26/2017 7:54 PM * Full Code Date Activated Date Inactivated Comments 05/20/2017 6:49 PM 05/22/2017 5:39 PM * Full Code Date Activated Date Inactivated Comments 05/20/2017 3:55 PM 05/20/2017 6:49 PM Care Teams Digital Solution Architect Relationship Specialty Start Date End Date Demarcus Lofton DO PCP - General Internal Medicine 05/20/17
[2025-04-17 15:51] LABS: Hematocrit 31.8 % (37.0-47.0); Hemoglobin 10.7 g/dL (12.0-15.0); Immature Granulocyte Percent A 0.6 % (0-0.5); Lymphocytes Absolute Auto 1.54 K/mm3 (0.9-3.2); Mean Corpuscular HGB Conc 33.6 g/dl (32-36); Mean Corpuscular Hemoglobin 30.0 pg (26-34); Mean Corpuscular Volume 89.1 fl (80-100); Nucleated Red Blood Cells Absolute Auto 0.000 K/mm3 (0.0-0.012); Nucleated Red Blood Cells Perc 0.0 % (0.0-0.2); Platelet Count Result 182 k/mm3 (150-375); Red Blood Count 3.57 M/mm3 (4.2-5.4); White Blood Count 8.6 K/mm3 (4.5-10.0)
--- NOTE | 2025-04-17 15:52 | ED.NAVMDI ---
HPI - Nausea/Vomiting/Diarrhea General Chief complaint: Nausea/Vomiting/Diarrhea Stated complaint: n/v Time Seen by Provider: 04/17/25 15:33 History of Present Illness HPI Narrative: Patient is a who is 34 years old with previous diagnosis of hyperemesis gravidarum who presents the ER with concerns for dehydration. For episodes of emesis today. She has been taking Zofran 8 mg at home. No fevers or chills or sweats. No urinary frequency urgency or dysuria. No vaginal bleeding or leakage of fluid. She is having increased fatigue and mild headache. She is 15 weeks in gestation. Related Data Allergies Allergy/AdvReac Type Severity Reaction Status Date / Time codeine Allergy Intermediate Unknown Verified 04/17/25 16:06 latex Allergy Intermediate Blister Verified 04/17/25 16:06 Penicillins Allergy Intermediate NAUSEA/RASH Verified 04/17/25 16:06 strawberry Allergy Intermediate Hives Verified 04/17/25 16:06 Review of Systems Review of Systems: All systems reviewed & are unremarkable except as noted in HPI and below Constitutional: Constitutional: Reports no additional constitutional complaints Cardiovascular: Cardiovascular: Reports no additional cardiovascular complaints Respiratory: Respiratory: Reports no additional respiratory complaints Gastrointestinal: Gastrointestinal: Reports no additional gastrointestinal complaints Genitourinary: Genitourinary: Reports no additional female genitourinary complaints [facility] Past Medical History Medical History Weight gain Abnormal menses Abnormal uterine bleeding Menorrhagia Screening for STD (sexually transmitted disease) Thrush Exposure to COVID-19 virus Bloody stool Sinusitis Chronic sinusitis of both maxillary sinuses PCOS (polycystic ovarian syndrome) Advanced maternal age in multigravida Advanced maternal age affecting , antepartum Suppression of menses Migraine Anxiety and depression Previous known suicide attempt Attention deficit disorder Anxiety Swallowing difficulty Eating disorder Depression Allergies Cyst of face Surgical History Surgical History H/O dilation and curettage Family History Family History Mother Family history of mental disorder Heart palpitations Anxiety Sibling Patient's sister is in good health, Onset Age: 18 Father Family history of diabetes mellitus in first degree relative Diabetes mellitus Social History Social History (Reviewed 04/07/25 @ 10:37 by SHELBI Caba Social History: Caffeine- coffee/soda/energy drinks Smoking packs per day: 0.50 Smoking cigarettes per day: 10.0 Years smoked: 1 Smoking pack-years: 0.50 Smoking status: Current every day smoker Smoking end date: 07/21/18 Alcohol intake: never Substance use: former Substance use type: marijuana and crack/cocaine Last use: 2009 Lack of Transportation: No Lack of Food: Never True Current Housing: I Have Housing Concerned About Future Housing: No Difficulty Paying Gas/Electric Bills: No Difficulty Paying for Meds: Decline to Answer Currently Unemployed: YES Education: High School Diploma/GED Difficulty w/ Childcare or Family Care: YES Living arrangements: with family Gender identity (if verbalized by the patient): Female Exam Narrative: GENERAL: Well-appearing, well-nourished, and in no acute distress. HEAD: Normocephalic, atraumatic. ENT: Mucous membranes moist. CHEST: Clear to auscultation. No respiratory distress. HEART: Regular rate and rhythm. Normal peripheral pulses. ABDOMEN: Soft, nontender, nondistended. EXTREMITIES: Normal range of motion. No edema. SKIN: Warm, dry, no rash. NEURO: Alert and oriented x3. PSYCH: Normal mood and affect. Course Course Emergency Course: Feels improved after antiemetics and fluids. Appropriate for discharge and follow-up with PCP. Urine with 1+ bacteria so will place her on some antibiotics for asymptomatic bacteriuria. Vital Signs Vital signs: Vital Signs Temperature 98.5 F 04/17/25 15:22 Pulse Rate 71 04/17/25 15:22 Respiratory Rate 18 04/17/25 15:22 Blood Pressure 150/83 H 04/17/25 15:22 Pulse Oximetry 100 04/17/25 15:22 Oxygen Delivery Room Air 04/17/25 15:22 Temperature 98.5 F 04/17/25 15:22 Pulse Rate 67 04/17/25 16:52 Respiratory Rate 16 04/17/25 16:52 Blood Pressure 106/73 04/17/25 16:52 Pulse Oximetry 100 04/17/25 16:52 Oxygen Delivery Room Air 04/17/25 15:22 MDM - Nausea/Vomiting/Diarrhea Lab Data 04/17/25 15:46 04/17/25 15:46 Labs: Lab Results 04/17/25 04/17/25 Range/Units 15:46 15:58 WBC 8.6 (4.5-10.0) K/mm3 RBC 3.57 L (4.2-5.4) M/mm3 Hgb 10.7 L (12.0-15.0) g/dL Hct 31.8 L (37.0-47.0) % MCV 89.1 (80-100) fl MCH 30.0 (26-34) pg MCHC 33.6 (32-36) g/dl RDW 12.6 (11.5-14.5) % Plt Count 182 (150-375) k/mm3 MPV 9.7 (7.4-10.4) fl Immature Gran % (Auto) 0.6 H (0-0.5) % Neut % (Auto) 72.5 (45.5-73.1) % Lymph % (Auto) 18.0 L (18.3-44.2) % [place] % (Auto) 7.7 (2.6-8.5) % Eos % (Auto) 0.8 (0-4.4) % Baso % (Auto) 0.4 (0.2-1.2) % Lymph # (Auto) 1.54 (0.9-3.2) K/mm3 [place] # (Auto) 0.7 H (0.1-0.6) K/mm3 Eos # (Auto) 0.1 (0-0.3) K/mm3 Baso # (Auto) 0.0 (0.0-0.1) K/mm3 Abs Immat Gran (auto) 0.05 H (0.00-0.031) K/mm3 Absolute Neuts (auto) 6.2 (1.3-6.7) K/mm3 Absolute Nucleated RBC 0.000 (0.0-0.012) K/mm3 Nucleated RBC % 0.0 (0.0-0.2) % Sodium 133 L (137-145) mmol/L Potassium 3.9 (3.4-5.0) mmol/L Chloride 105 (98-107) mmol/L Carbon Dioxide 22 (22-30) mmol/L Anion Gap 6 (4-12) mmol/L BUN 9 (7-17) mg/dL Creatinine 0.58 L (0.7-1.0) mg/dL Estim Creat Clear Calc 106 ml/min Estimated GFR > 60 (59 - ) Glucose 84 (65-110) mg/dL Calcium 8.9 (8.4-10.2) mg/dL Total Bilirubin 0.2 (0.2-1.3) mg/dL AST 24 (14-36) U/L ALT 9 (6-35) U/L Alkaline Phosphatase 52 (38-126) U/L Total Protein 6.6 (6.3-8.2) g/dL Albumin 3.8 (3.5-5.1) g/dL Lipase 72 (23-300) U/L Urine Color Yellow (Yellow) Urine Appearance Clear (Clear) Urine pH 6.5 (5.0-9.0) Ur Specific [place] 1.018 (1.001-1.035) Urine Protein Negative (Negative) mg/dL Urine Glucose (UA) Negative (Negative) mg/dL Urine Ketones Negative (Negative) mg/dL Ur Blood (Man) Negative (Negative) Urine Nitrate Negative (Negative) Urine Bilirubin Negative (Negative) Urine Urobilinogen 1.0 (<2.0) mg/dL Add Ur Microanalysis Reviewed Leukocyte Esterase Rfl 1+ H (Negative) STANLEY/UL Urine RBC 0-2 (0-2) /hpf Urine WBC 0-5 (0-3) /hpf Ur Squamous Epith Cells Occasional (Few) /hpf Urine Bacteria 1+ H /hpf Urine Casts 0-2 Discharge Plan Discharge Clinical Impression: Nausea & vomiting, Asymptomatic bacteriuria during Patient Disposition: Home Condition: Stable Instructions: Antibiotic Form, Nausea and Vomiting in (ED), Urinary Tract Infection in (ED) Additional Instructions: You should return to the emergency department if you develop severe nausea and vomiting and are unable to keep liquids down, if you develop severe back/flank or stomach pain, or if your symptoms are not clearly improving at home. Patient Language: Ghanaian Prescriptions: New nitrofurantoin monohyd/m-cryst [Macrobid] 100 mg capsule 100 mg PO Q12H 5 Days Qty: 10 0RF Rx Instructions: must administer with a meal/food No Action venlafaxine 75 mg capsule,extended release 24hr 75 mg PO DAILY Qty: 90 3RF promethazine 12.5 mg tablet 12.5 mg PO TID Qty: 30 1RF ondansetron HCl 4 mg tablet 8 mg PO Q6H PRN (Reason: nausea and vomiting) Qty: 30 1RF Follow-up/Referrals: UNKNOWN,DOCTOR [Non-Staff] Kamlesh Hoskins MD [Physician, [employer]] - 1 Week
--- OUTSIDE RECORDS SUMMARY | 2025-04-17 15:54 | XMS_ITS | Clinical Summary ---
Author Organization [facility] Address [address] [place] [id number] Care Team Providers Care Special Assemblies Supervisor Name Role Phone None, Provider MD Primary Care Provider Unavaila ble Allergies Active Allergy Reactions Criticality Noted Date Comments Penicillins Anaphylaxis High 02/20/2025 Medications No known medications Encounters Date Type Department Care Team Description 02/20/2025 5:35 PM CDT - 02/20/2025 10:43 PM CDT Emergency [facility] [place] [address] Brenda Her, UNLOADER OPERATOR Vaginal Bleeding Discharge Disposition: Home or [...] 9:45 PM Narrative 02/20/2025 10:01 PM CDT [address] [address] EXAM: US OB TRANSVAG DATE: 02/20/2025 COMPARISON: [...] Procedure Note Huan Brooks MD - 02/20/[address] [address] EXAM: US OB TRANSVAG DATE: 02/20/2025 COMPARISON: [...] Brooks MD, 02/20/2025 9:45 PM Brenda Her [facility] ULTRASOUND Final Resul t * BLOOD TYPING, ABO AND RH (02/20/2025 7:17 PM CDT) ABO/RH O POSITIVE 02/20/2025 7:43 PM CDT [facility] 02/20/2025 7:17 PM CDT Brenda Her [facility] BLOOD BANK TEST ORDERABLES Final Result [facility] [address] [id number], [place] [phone] * Quantitative HCG (02/20/2025 5:43 PM CDT) HCG QUANTITATIVE 21,226 MIU/ML 02/21/20 6:40 PM CDT [facility] Comment: WEEKS OF REFERENCE RANGES [...] 02/20/2025 5:43 PM CDT us Brenda Her [facility] LABORATORY Final Resul t [facility] [address] [place] [address], * (ABNORMAL) COMPREHENSIVE METABOLIC PANEL (02/20/2025 5:38 PM CDT) GLUCOSE 84 70 - 99 MG/DL 02/20/2025 6:22 PM CDT [facility] BUN 6(L) 7 - 18 MG/DL 02/20/2025 6:22 PM CDT [facility] CREATININE S/P/B 0.59 0.55 - 1.02 MG/DL 02/20/2025 6:22 PM CDT [facility] SODIUM S/P/B 136 136 - 145 MMOL/L 02/20/2025 6:22 PM CDT [facility] POTASSIUM S/P/B 3.5 3.5 - 5.1 MMOL/L 02/20/2025 6:22 PM CDT [facility] CHLORIDE S/P/B 105 97 - 115 MMOL/L 02/20/2025 6:22 PM CDT [facility] CO2 26.0 21 - 32 MMOL/L 02/20/2025 6:22 PM CDT [facility] CALCIUM S/P/B 9.7 8.5 - 10.1 MG/DL 02/20/2025 6:22 PM CDT [facility] BILIRUBIN TOTAL S/P/B 0.4 0.2 - 1.2 MG/DL 02/20/2025 6:22 PM CDT [facility] Comment: THIS ASSAY IS NOT RECOMMENDED FOR PATIENTS UNDERGOING TREATMENT WITH ELTROMBOPAG DUE TO THE POTENTIAL FOR FALSELY ELEVATED RESULTS. TOTAL PROTEIN S/P/B 7.4 6.4 - 8.2 G/DL 02/20/2025 6:22 PM CDT [facility] ALBUMIN S/P/B 3.9 3.4 - 5.0 G/DL 02/20/2025 6:22 PM CDT [facility] AST 12(L) 15 - 37 U/L 02/20/2025 6:22 PM CDT [facility] ALT 18 14 - 55 U/L 02/20/2025 6:22 PM CDT [facility] ALKALINE PHOSPHATASE S/P/B 56 50 - 136 U/L 02/20/2025 6:22 PM CDT [facility] ANION GAP 5.0 2 - 10 MMOL/L 02/20/2025 6:22 PM CDT [facility] BUN CREATININE RATIO 10.2 6 - 26 02/20/2025 6:22 PM CDT [facility] A/G RATIO 1.1 1.0 - 2.0 RATIO 02/20/2025 6:22 PM CDT [facility] GFR ESTIMATE >90 >90 ML/MIN/1.7 3 M2 02/20/2025 6:22 PM CDT [facility] Comment: NOTE: eGFR is not calculated for patients <18 years of age or gender unknown. This is an estimated GFR calculation using the new CKD EPI creatinine equation without race and so does not require a correction factor for race. This estimated GFR should not be used for calculating drug doses. 02/20/2025 5:38 PM CDT us Brenda Her UNLOADER OPERATOR LABORATORY Final Resul t [facility] [address] [place] [address], [place] [phone] * (ABNORMAL) CBC W/DIFF AUTOMATED (02/20/2025 5:38 PM CDT) WBC 7.29 4.5 - 11.0 x10'3/uL 02/20/2025 6:07 PM CDT [facility] RBC 4.04(L) 4.20 - 5.40 x10'6/uL 02/20/2025 6:07 PM CDT [facility] HGB 12.2 12.0 - 16.0 G/DL 02/20/2025 6:07 PM CDT [facility] HCT 36.1(L) 38.0 - 48.0 % 02/20/2025 6:07 PM CDT [facility] MCV 89.4 81.0 - 99.0 FL 02/20/2025 6:07 PM CDT [facility] MCH 30.2 27.0 - 31.0 PG 02/20/2025 6:07 PM CDT [facility] MCHC 33.8 32.0 - 36.0 G/DL 02/20/2025 6:07 PM CDT [facility] RDW 13.0 11.5 - 14.5 % 02/20/2025 6:07 PM CDT [facility] PLT 234 130 - 400 x10'3/uL 02/20/2025 6:07 PM CDT [facility] MPV 9.7 9.3 - 12.2 FL 02/20/2025 6:07 PM CDT [facility] DIFFERENTIAL TYPE AUTOMATED DIFFERENTIAL 02/20/2025 6:07 PM CDT [facility] NEUTROPHILS % 67.0 % 02/20/2025 6:07 PM CDT [facility] LYMPHOCYTES % 25.7 % 02/20/2025 6:07 PM CDT [facility] MONOCYTES % 6.0 % 02/20/2025 6:07 PM CDT [facility] EOSINOPHILS 0.3 % 02/20/2025 6:07 PM CDT [facility] BASOPHILS 0.7 % 02/20/2025 6:07 PM CDT [facility] IMMATURE GRANS % 0.3 % 02/21/20 25 6:07 PM CDT [facility] ABS. NEUTROPHILS 4.89 1.80 - 7.70 x10'3/uL 02/20/2025 6:07 PM CDT [facility] ABS. LYMPHOCYTES 1.87 1.00 - 4.80 x10'3/uL 02/20/2025 6:07 PM CDT [facility] ABS. MONOCYTES 0.44 0.24 - 0.86 x10'3/uL 02/20/2025 6:07 PM CDT [facility] ABS. EOSINOPHILS 0.02(L) 0.04 - 0.36 x10'3/uL 02/20/2025 6:07 PM CDT [facility] ABS. BASOPHILS 0.05 0.01 - 0.08 x10'3/uL 02/20/2025 6:07 PM CDT [facility] ABS. IMMATURE GRANULOCYTES 0.02 0.00 - 0.49 x10'3/uL 02/20/2025 6:07 PM CDT [facility] 02/20/2025 5:38 PM CDT us Brenda Her UNLOADER OPERATOR LABORATORY Final Resul t [facility] [address] [place] [address], * URINALYSIS (02/20/2025 5:35 PM CDT) SPECIMEN TYPE URINE CLEAN CATCH 02/20/2025 5:35 PM CDT [facility] COLOR (U) COLORLESS 02/20/2025 5:54 PM CDT [facility] TRANSPARENCY CLEAR 02/20/2025 5:54 PM CDT [facility] SPECIFIC GRAVITY (U) 1.005 1.001 - 1.030 02/20/2025 5:54 PM CDT [facility] U PH 6.5 5.0 - 9.0 02/20/2025 5:54 PM CDT [facility] LEUKOCYTES (U) NEGATIVE NEGATIVE 02/20/2025 5:54 PM CDT [facility] NITRITES NEGATIVE NEGATIVE 02/20/2025 5:54 PM CDT [facility] PROTEIN RANDOM (U) NEGATIVE <30 MG/DL 02/20/2025 5:54 PM CDT [facility] GLUCOSE (U) NORMAL NORMAL MG/DL 02/20/2025 5:54 PM CDT [facility] KETONES MG/DL (U) NEGATIVE NEGATIVE MG/DL 02/20/2025 5:54 PM CDT [facility] UROBILINOGEN NORMAL NORMAL MG/DL 02/20/2025 5:54 PM CDT [facility] BILIRUBIN (U) NEGATIVE NEGATIVE MG/DL 02/20/2025 5:54 PM CDT [facility] BLOOD (U) NEGATIVE NEGATIVE 02/20/2025 5:54 PM CDT [facility] URINE SPECIMEN OBTAINED BY CLEAN CATCH PROCEDURE / Unknown 02/20/2025 5:35 PM CDT us Brenda Her UNLOADER OPERATOR URINE ORDERABLES Final Resu lt [facility] [address] [facility] [place] [address], [place] [phone] from Last 3 Months Insurance [facility] Care Teams Special Assemblies Supervisor Relationship Specialty Start Date End Date None, Provider, MD PCP - General UNKNOWN PHYSICIAN SPECIALTY 02/20/25
--- OUTSIDE RECORDS SUMMARY | 2025-04-17 15:54 | XMS_ITS | Clinical Summary ---
Author Organization [facility] Address [address] [place] [address] Care Team Providers Care Linoleum Floor Installer Name Role Phone Rolly Demarcus Christianne DO Primary Care Provider [phone] Source Comments [facility],non-owned Affiliates and Associated Physician Practices is amultiple site organization consisting of ambulatory clinics and hospital sitesin [place], [place], [place] and [place]. This disclosure is being madepursuant to the Care Everywhere program and may not contain all information available regarding this patient. Last updated 18.[facility] Allergies Active Allergy Reactions Criticality Noted Date Comments Codeine Nausea and/or Vomiting 05/20/2017 Latex Other 05/20/2017 Pt stated her skin will blister Penicillins Anaphylaxis High 05/20/2017 [place] Urticaria Medium 05/20/2017 Medications * Be aware [...] Comments Blood Pressure 140/82 05/26/2017 4:35 PM ANTHROPOLOGY LECTURER Pulse 74 05/25/2017 6:35 PM ANTHROPOLOGY LECTURER Temperature 36.7 C (98.1 F) 05/26/2017 4:35 PM ANTHROPOLOGY LECTURER Respiratory Rate 16 05/26/2017 4:35 PM ANTHROPOLOGY LECTURER Oxygen Saturation 99% 05/26/2017 4:35 PM ANTHROPOLOGY LECTURER Inhaled Oxygen Concentration - - Weight 83 kg (183 lb) 05/26/2017 8:10 AM ANTHROPOLOGY LECTURER Height 170.2 cm (5' 7) 05/21/2017 8:00 [...] Group B DOUGLAS 05/24/2017 4:10 PM CDT [facility] Microbiology MISCELLANEOUS SAMPLES / Unknown Collection / Unknown 05/21/2017 7:12 AM CDT 05/21/2017 7:27 AM CDT Barbie Solis MD LAB - MICROBIOLOGY ORDERA BLES Final Result [facility] [address] [place] [address], [facility] [phone] from Last 3 Months or Most Recently Relevant to Health Maintenance Insurance [facility] Advance Directives * Full Code (Latest Code Status on File) Date Activated Date Inactivated Comments 05/22/2017 5:39 PM 05/26/2017 7:54 PM * Full Code Date Activated Date Inactivated Comments 05/20/2017 6:49 PM 05/22/2017 5:39 PM * Full Code Date Activated Date Inactivated Comments 05/20/2017 3:55 PM 05/20/2017 6:49 PM Care Teams Linoleum Floor Installer Relationship Specialty Start Date End Date Demarcus Lofton DO PCP - General Internal Medicine 05/20/17
--- OUTSIDE RECORDS SUMMARY | 2025-04-17 15:54 | XMS_ITS | Data Portability ---
Author Organization [facility] Address [address] [place] [address] Assessment No assessment recorded. Plan of Treatment Reminders Order Date Submit Date Provider Last Modified By Organization Details Last Modified Time Details Appointments None recorded. Lab Pap smear tests - FPAR 2.0 set 2021 [facility], [address], [address], [place], [address], 17:09:14 lh + FSH, serum 2021 [facility] (Centralized Electronic Ordering - All Locations), Patient Can Go To The Location Of Their Choice, 08:34:37 dhea-sulf ate, serum 2021 [facility] (Centralized Electronic Ordering - All Locations), Patient Can Go To The Location Of Their Choice, 08:34:38 testoster one, total, serum 2021 [facility] (Centralized Electronic Ordering - All Locations), Patient Can Go To The Location Of Their Choice, 08:34:39 CMP, serum or plasma 2021 [facility] (Centralized Electronic Ordering - All Locations), Patient Can Go To The Location Of Their Choice, 08:34:36 TSH, ultra-sen sitive, serum 2021 [facility], [address], [address], 2 08:34:38 HbA1c (hemoglob in A1c), blood 2021 022 [facility], [address], [address], [place], [address], 2 08:34:37 CBC w/ auto diff 2021 022 [facility], [address], [address], [place], [address], 2 08:34:36 iron + total iron-bind ing capacity (TIBC), serum 2021 022 [facility]CCA M[facility]PH[facility], [address], [address], [place], [address], 2 08:34:36 ferritin, serum or plasma 2021 022 [facility], [address], [address], [place], [address], 2 08:34:38 vaginal pathogens panel, ELPIDIO+probe , vaginal fluid 2021 022 [facility], [address], [address], [place], [address], 2 08:34:35 CBC w/ auto diff 2019 020 RE[facility]CCA LEWISCOR[facility], [address], [address], [place], [address], 0 08:17:17 iron + total iron-bind ing capacity (TIBC), serum 2019 020 [facility], [address], [address], [place], [address], 0 08:17:17 ferritin, serum or plasma 2019 020 [facility], [address], [address], [place], [address], 0 08:17:18 Referral None recorded. Procedures None recorded. Surgeries salpingec kallie, laparosco pic, robot assisted (SURG) 2019 020 [email or web address] Not available 0 10:10:44 hysterosc opy, with endometri al ablation (SURG) 2019 020 [facility], [address], [place], [address], 0 10:10:44 Imaging US, pelvis, transabdo darleen + transvagi nal - Hx of irregular menstrual cycles 2021 022 [facility] (One Call Scheduling), [address] [place], [address], 2 14:54:13 US, pelvis, transabdo darleen + transvagi nal 2019 020 [facility] (Imaging), [address] [place] [address] [address], [place], [address], 0 12:11:19 Medication Orders Slynd 4 mg (28) tablet 2019 020 [email or web address] [id number], [address], [place], [place], [id number], 2 14:28:10 multivita min tablet 2019 020 [email or web address], [address], [place], [place], [id number], 2 09:34:32 Calcium with Vitamin D 600 mg-10 mcg (400 unit) tablet 2019 020 [facility] #67327, [address], [place], [place], [id number], 0 11:45:40 multivita min tablet 2019 020 [facility] #[id number], [address], [place], [address], 2 09:34:32 Calcium with Vitamin D 600 mg-10 mcg (400 unit) tablet 2019 020 [facility] #[id number], [address], [place], [address], 0 11:45:40 Patient TargetsNo targets recorded. Patient Instructions Encounter Date Encounter Id Patient Instructions Last Modified By Organization Details Last Modified Time 09/14/2019 [id number] IUD removal: care instructions [email or web address] Not available 09/14/2019 16:41:34 Reason for Referral None Reported. Results Created Date Observation Date Name Description Value Unit Range Abnormal Flag Note LastModifiedBy Organization Detail LastModifiedTime 02/17/20 20 02/18/2020 CBC w/ auto diff WBC 9.7 x10e3 /uL 3.4-10 .8 Not Available [facility] ([facility]) [address] [place], [address], 02/18/2020 08:17:17 02/17/20 20 02/18/2020 CBC w/ auto diff RBC 4.69 x10e6 /uL 3.77-5 .28 Not Available [facility] ([facility]) [address], [place], [address], 02/18/2020 08:17:17 02/17/20 20 02/18/2020 CBC w/ auto diff hemoglobin 13.6 g/dL 11.1-1 5.9 Not Available [facility] ([facility]) [address], [place], [address], 02/18/2020 08:17:17 02/17/20 20 02/18/2020 CBC w/ auto diff hematocrit 41.8 % 34.0-4 6.6 Not Available [facility] ([facility]) [address], [place], [address], 02/18/2020 08:17:17 02/17/20 20 02/18/2020 CBC w/ auto diff MCV 89 fL 79-97 Not Available [facility] ([facility]) [address], [place], [address], 02/18/2020 08:17:17 02/17/20 20 02/18/2020 CBC w/ auto diff MCH 29.0 pg 26.6-3 3.0 Not Available [facility] ([facility]) [address], [place], [address], 02/18/2020 08:17:17 02/17/20 20 02/18/2020 CBC w/ auto diff MCHC 32.5 g/dL 31.5-3 5.7 Not Available [facility] ([facility]) [address], [place], [address], 02/18/2020 08:17:17 02/17/20 20 02/18/2020 CBC w/ auto diff RDW 13.8 % 11.7-1 5.4 Not Available [facility] ([facility]) [address], [place], [address], 02/18/2020 08:17:17 02/17/20 20 02/18/2020 CBC w/ auto diff platelets 302 x10e3 /uL 150-45 0 Not Available [facility] ([facility]) [address], [place], [address], 02/18/2020 08:17:17 02/17/20 20 02/18/2020 CBC w/ auto diff neutrophils 72 % not estab. Not Available [facility] ([facility]) [address], [place], [address], 02/18/2020 08:17:17 02/17/20 20 02/18/2020 CBC w/ auto diff lymphs 23 % not estab. Not Available [facility] ([facility]) [address], [place], [address], 02/18/2020 08:17:17 02/17/20 20 02/18/2020 CBC w/ auto diff monocytes 5 % not estab. Not Available [facility] ([facility]) [address], [place], [address], 02/18/2020 08:17:17 02/17/20 20 02/18/2020 CBC w/ auto diff eos 0 % not estab. Not Available [facility] ([facility]) [address], [place], [address], 02/18/2020 08:17:17 02/17/20 20 02/18/2020 CBC w/ auto diff basos 0 % not estab. Not Available [facility] ([facility]) [address], [place], [address], 02/18/2020 08:17:17 02/17/20 20 02/18/2020 CBC w/ auto diff immature cells HOG SAWYER Not Available [facility] ([facility]) [address], [place], [address], 02/18/2020 08:17:17 02/17/20 20 02/18/2020 CBC w/ auto diff neutrophils (absolute) 6.9 x10e3 /uL 1.4-7. 0 Not Available [facility] ([facility]) [address], [place], [address], 02/18/2020 08:17:17 02/17/20 20 02/18/2020 CBC w/ auto diff lymphs (absolute) 2.2 x10e3 /uL 0.7-3. 1 Not Available [facility] ([facility]) [address], [place], [address], 02/18/2020 08:17:17 02/17/20 20 02/18/2020 CBC w/ auto diff monocytes(ab solute) 0.5 x10e3 /uL 0.1-0. 9 Not Available [facility] ([facility]) [address], [place], [address], 02/18/2020 08:17:17 02/17/20 20 02/18/2020 CBC w/ auto diff eos (absolute) 0.0 x10e3 /uL 0.0-0. 4 Not Available [facility] ([facility]) [address], [place], [address], 02/18/2020 08:17:17 02/17/20 20 02/18/2020 CBC w/ auto diff baso (absolute) 0.0 x10e3 /uL 0.0-0. 2 Not Available [facility] ([facility]) [address], [place], [address], 02/18/2020 08:17:17 02/17/20 20 02/18/2020 CBC w/ auto diff immature granulocytes 0 % not estab. Not Available [facility] ([facility]) [address], [place], [address], 02/18/2020 08:17:17 02/17/2002/18/2020 CBC w/ auto diff immature grans (abs) 0.0 x10e3 /uL 0.0-0. 1 Not Available [facility] ([facility]) [address], [place], [address], 02/18/2020 08:17:17 02/17/20 20 02/18/2020 CBC w/ auto diff NRBC HOG SAWYER Not Available [facility] ([facility]) [address], [place], [address], 02/18/2020 08:17:17 02/17/20 20 02/18/2020 CBC w/ auto diff hematology comments: HOG SAWYER Not Available [facility] ([facility]) [address] [place], [address], 02/18/2020 08:17:17 02/17/20 20 02/18/2020 iron + total iron- oracio ng capac ity (TIBC ), serum iron bind.cap.(TI BC) 391 ug/dL 250-45 0 Not Available [facility] ([facility]) [address], [place], [address], 02/18/2020 08:17:17 02/17/20 20 02/18/2020 iron + total iron- oracio ng capac ity (TIBC ), serum UIBC 336 ug/dL 131-42 5 Not Available [facility] ([facility]) [address] [place], [address], 02/18/2020 08:17:17 02/17/20 20 02/18/2020 iron + total iron- oracio ng capac ity (TIBC ), serum iron 55 ug/dL 27-159 Not Available [facility] ([facility]) [address] [place], [address], 02/18/2020 08:17:17 02/17/20 20 02/18/2020 iron + total iron- oracio ng capac ity (TIBC ), serum iron saturation 14 % 15-55 below low normal Not Available [facility] ([facility]) [address] [place], [address], 02/18/2020 08:17:17 02/17/20 20 02/18/2020 xochitl tin, serum or plasm a ferritin, serum 20 NG/mL 15-150 Not Available [facility] ([facility]) [address] [place], [address], 02/18/2020 08:17:18 09/10/19 22 09/11/2021 NUSWA B VAGIN ITIS PLUS (VG+) atopobium vaginae Modera te - 1 score Not Available [facility] ([facility]) [address], [place], [address], 09/12/2021 06:12:24 09/10/19 22 09/11/2021 NUSWA B VAGIN ITIS PLUS (VG+) bvab 2 Low - 0 score Not Available [facility] ([facility]) [address], [place], [address], 09/12/2021 06:12:24 09/10/19 22 09/11/2021 NUA B VAGIN ITIS PLUS (VG+) megasphaera 1 High - 2 score abnormal Calcu late total score by ar avery the 3 indiv idual bacte rial vagin osis (BV) marke r score s toget her. Total score is inter prete d as follo ws: Total score 0-1: Indic ates the absen ce of BV. Total score 2: Indet ermin ate for BV. Addit ional clini rosalio data shoul d be evalu ated to estab tejas a diagn osis. Total score 3-6: Indic ates the prese nce of BV. This test was devel oped and its perfo rmanc e jaclyn cteri stics deter mined by [facility]. It has not been clear ed or appro jamila by the Food and Drug Admin istra tion. Not Available [facility] ([facility]) [address], [place], [address], 09/12/2021 06:12:24 09/10/19 22 09/11/2021 NUA B VAGIN ITIS PLUS (VG+) angelia albicans, ELPIDIO Negati ve negati ve Not Available [facility] ([facility]) [address], [place], [address], 09/12/2021 06:12:24 09/10/19 22 09/11/2021 NUSWA B VAGIN ITIS PLUS (VG+) angelia glabrata, ELPIDIO Negati ve negati ve Not Available [facility] ([facility]) [address], [place], [address], 09/12/2021 06:12:24 09/10/19 22 09/12/2021 NUSWA B VAGIN ITIS PLUS (VG+) trich vag by ELPIDIO Negati ve negati ve Not Available [facility] ([facility]) [address], [place], [address], 09/12/2021 06:12:24 09/10/19 22 09/12/2021 NUSWA B VAGIN ITIS PLUS (VG+) chlamydia trachomatis, ELPIDIO Negati ve negati ve Not Available [facility] ([facility]) [address], [place], [address], 09/12/2021 06:12:24 09/10/19 22 09/12/2021 NUSWA B VAGIN ITIS PLUS (VG+) neisseria gonorrhoeae, ELPIDIO Negati ve negati ve Not Available [facility] ([facility]) [address], [place], [address], 09/12/2021 06:12:24 09/10/19 22 09/11/2021 CBC WITH DIFFE RENTI AL/PL ATELE T WBC 6.0 x10e3 /uL 3.4-10 .8 Not Available [facility] ([facility]) [address], [place], [address], 09/12/2021 06:12:25 09/10/19 22 09/11/2021 CBC WITH DIFFE RENTI AL/PL ATELE T RBC 4.59 x10e6 /uL 3.77-5 .28 Not Available [facility] ([facility]) [address], [place], [address], 09/12/2021 06:12:25 09/10/19 22 09/11/2021 CBC WITH DIFFE RENTI AL/PL ATELE T hemoglobin 13.9 g/dL 11.1-1 5.9 Not Available [facility] ([facility]) [address], [place], [address], 09/12/2021 06:12:25 09/10/19 22 09/11/2021 CBC WITH DIFFE RENTI AL/PL ATELE T hematocrit 41.2 % 34.0-4 6.6 Not Available [facility] ([facility]) [address], [place], [address], 09/12/2021 06:12:25 09/10/19 22 09/11/2021 CBC WITH DIFFE RENTI AL/PL ATELE T MCV 90 fL 79-97 Not Available [facility] ([facility]) [address], [place], [address], 09/12/2021 06:12:25 09/10/19 22 09/11/2021 CBC WITH DIFFE RENTI AL/PL ATELE T MCH 30.3 pg 26.6-3 3.0 Not Available [facility] ([facility]) [address], [place], [address], 09/12/2021 06:12:25 09/10/19 22 09/11/2021 CBC WITH DIFFE RENTI AL/PL ATELE T MCHC 33.7 g/dL 31.5-3 5.7 Not Available [facility] ([facility]) [address], [place], [address], 09/12/2021 06:12:25 09/10/19 22 09/11/2021 CBC WITH DIFFE RENTI AL/PL ATELE T RDW 12.6 % 11.7-1 5.4 Not Available [facility] ([facility]) [address], [place], [address], 09/12/2021 06:12:25 09/10/19 22 09/11/2021 CBC WITH DIFFE RENTI AL/PL ATELE T platelets 241 x10e3 /uL 150-45 0 Not Available [facility] ([facility]) [address], [place], [address], 09/12/2021 06:12:25 09/10/19 22 09/11/2021 CBC WITH DIFFE RENTI AL/PL ATELE T neutrophils 62 % not estab. Not Available [facility] ([facility]) [address], [place], [address], 09/12/2021 06:12:25 09/10/19 22 09/11/2021 CBC WITH DIFFE RENTI AL/PL ATELE T lymphs 30 % not estab. Not Available [facility] ([facility]) [address], [place], [address], 09/12/2021 06:12:25 09/10/19 22 09/11/2021 CBC WITH DIFFE RENTI AL/PL ATELE T monocytes 8 % not estab. Not Available [facility] ([facility]) [address], [place], [address], 09/12/2021 06:12:25 09/10/19 22 09/11/2021 CBC WITH DIFFE RENTI AL/PL ATELE T eos 0 % not estab. Not Available [facility] ([facility]) [address], [place], [address], 09/12/2021 06:12:25 09/10/19 22 09/11/2021 CBC WITH DIFFE RENTI AL/PL ATELE T basos 0 % not estab. Not Available [facility] ([facility]) [address], [place], [address], 09/12/2021 06:12:25 09/10/19 22 09/11/2021 CBC WITH DIFFE RENTI AL/PL ATELE T immature cells HOG SAWYER Not Available [facility] ([facility]) [address], [place], [address], 09/12/2021 06:12:25 09/10/19 22 09/11/2021 CBC WITH DIFFE RENTI AL/PL ATELE T neutrophils (absolute) 3.7 x10e3 /uL 1.4-7. 0 Not Available [facility] ([facility]) [address] [place], [address], 09/12/2021 06:12:25 09/10/19 22 09/11/2021 CBC WITH DIFFE RENTI AL/PL ATELE T lymphs (absolute) 1.8 x10e3 /uL 0.7-3. 1 Not Available [facility] ([facility]) [address] [place], [address], 09/12/2021 06:12:25 09/10/19 22 09/11/2021 CBC WITH DIFFE RENTI AL/PL ATELE T monocytes(ab solute) 0.5 x10e3 /uL 0.1-0. 9 Not Available [facility] ([facility]) [address] [place], [address], 09/12/2021 06:12:25 09/10/19 22 09/11/2021 CBC WITH DIFFE RENTI AL/PL ATELE T eos (absolute) 0.0 x10e3 /uL 0.0-0. 4 Not Available [facility] ([facility]) [address] [place], [address], 09/12/2021 06:12:25 09/10/19 22 09/11/2021 CBC WITH DIFFE RENTI AL/PL ATELE T baso (absolute) 0.0 x10e3 /uL 0.0-0. 2 Not Available [facility] ([facility]) [address] [place], [address], 09/12/2021 06:12:25 09/10/19 22 09/11/2021 CBC WITH DIFFE RENTI AL/PL ATELE T immature granulocytes 0 % not estab. Not Available [facility] ([facility]) [address] [place], [address], 09/12/2021 06:12:25 09/10/19 22 09/11/2021 CBC WITH DIFFE RENTI AL/PL ATELE T immature grans (abs) 0.0 x10e3 /uL 0.0-0. 1 Not Available [facility] ([facility]) [address] [facility], [place], [address], 09/12/2021 06:12:25 09/10/19 22 09/11/2021 CBC WITH DIFFE RENTI AL/PL ATELE T NRBC HOG SAWYER Not Available [facility] ([facility]) [address] [facility] [facility], [place], [address], 09/12/2021 06:12:25 09/10/19 22 09/11/2021 CBC WITH DIFFE RENTI AL/PL ATELE T hematology comments: HOG SAWYER Not Available [facility] ([facility]) [address] [facility], [place], [address], 09/12/2021 06:12:25 09/10/19 22 09/11/2021 COMP. METAB OLIC PANEL (14) glucose 77 mg/dL 65-99 Not Available [facility] ([facility]) [address] [facility], [place], [address], 09/12/2021 06:12:25 09/10/19 22 09/11/2021 COMP. METAB OLIC PANEL (14) BUN 11 mg/dL 6-20 Not Available [facility] ([facility]) [address] [place], [address], 09/12/2021 06:12:25 09/10/19 22 09/11/2021 COMP. METAB OLIC PANEL (14) creatinine 0.74 mg/dL 0.57-1 .00 Eff ectiv e Febru yang 2021 [facility] will begin repor ting the 2020 CKD-E PI creat inine equat ion that estim ates kidne y funct ion witho ut a race varia ble. Not Available [facility] ([facility]) [address] [facility], [place], [address], 09/12/2021 06:12:25 09/10/19 22 09/11/2021 COMP. METAB OLIC PANEL (14) eGFR if nonafricn AM 108 mL/mi n/1.7 3 >59 Not Available [facility] ([facility]) [address] [facility], [place], [address], 09/12/2021 06:12:25 09/10/19 22 09/11/2021 COMP. METAB OLIC PANEL (14) eGFR if africn AM 124 mL/mi n/1.7 3 >59 In accor dance with recom menda tions from the NKF-A SN Task force , [facility] is in the proce ss of updat ing its eGFR calcu latio n to the 2020 CKD-E PI creat inine equat ion that estim ates kidne y funct ion witho ut a race varia ble. Not Available [facility] ([facility]) [address] [facility], [place], [address], 09/12/2021 06:12:25 09/10/19 22 09/11/2021 COMP. METAB OLIC PANEL (14) BUN/creatini ne ratio 15 9-23 Not Available [facility] ([facility]) [address] [place], [address], 09/12/2021 06:12:25 09/10/19 22 09/11/2021 COMP. METAB OLIC PANEL (14) sodium 140 mmol/ L 134-14 4 Not Available [facility] ([facility]) [address] [facility] [place], [address], 09/12/2021 06:12:25 09/10/19 22 09/11/2021 COMP. METAB OLIC PANEL (14) potassium 4.6 mmol/ L 3.5-5. 2 Not Available [facility] ([facility]) [address] [place], [address], 09/12/2021 06:12:25 09/10/19 22 09/11/2021 COMP. METAB OLIC PANEL (14) chloride 102 mmol/ L 96-106 Not Available [facility] ([facility]) [address] [place] [address], [place], [address], 09/12/2021 06:12:25 09/10/19 22 09/11/2021 COMP. METAB OLIC PANEL (14) carbon dioxide, total 23 mmol/ L 20-29 Not Available [facility] ([facility]) [address] [place], [address], 09/12/2021 06:12:25 09/10/19 22 09/11/2021 COMP. METAB OLIC PANEL (14) calcium 9.9 mg/dL 8.7-10 .2 Not Available [facility] ([facility]) [address] [facility], [place], [address], 09/12/2021 06:12:25 09/10/19 22 09/11/2021 COMP. METAB OLIC PANEL (14) protein, total 7.0 g/dL 6.0-8. 5 Not Available [facility] ([facility]) [address] [facility], [place], [address], 09/12/2021 06:12:25 09/10/19 22 09/11/2021 COMP. METAB OLIC PANEL (14) albumin 4.6 g/dL 3.8-4. 8 Not Available [facility] ([facility] [address] [place], [address], 09/12/2021 06:12:25 09/10/19 22 09/11/2021 COMP. METAB OLIC PANEL (14) globulin, total 2.4 g/dL 1.5-4. 5 Not Available [facility] ([facility] [address] [place], [address], 09/12/2021 06:12:25 09/10/19 22 09/11/2021 COMP. METAB OLIC PANEL (14) A/G ratio 1.9 1.2-2. 2 Not Available [facility] ([facility]) [address] [place], [address], 09/12/2021 06:12:25 09/10/19 22 09/11/2021 COMP. METAB OLIC PANEL (14) bilirubin, total 0.3 mg/dL 0.0-1. 2 Not Available [facility] ([facility]) [address] [place], [address], 09/12/2021 06:12:25 09/10/19 22 09/11/2021 COMP. METAB OLIC PANEL (14) alkaline phosphatase 92 IU/L 44-121 Not Available [facility]) [address] [place], [address], 09/12/2021 06:12:25 09/10/19 22 09/11/2021 COMP. METAB OLIC PANEL (14) AST (SGOT) 22 IU/L 0-40 Not Available [facility] ([facility]) [address] [place], [address], 09/12/2021 06:12:25 09/10/19 22 09/11/2021 COMP. METAB OLIC PANEL (14) ALT (SGPT) 20 IU/L 0-32 Not Available [facility] ([facility]) [address] [place], [address], 09/12/2021 06:12:25 09/10/19 22 09/11/2021 IRON AND TIBC iron bind.cap.(TI BC) 361 ug/dL 250-45 0 Not Available [facility] ([facility]) [address] [place], [address], 09/12/2021 06:12:25 09/10/19 22 09/11/2021 IRON AND TIBC UIBC 279 ug/dL 131-42 5 Not Available [facility] ([facility]) [address] [place], [address], 09/12/2021 06:12:25 09/10/19 22 09/11/2021 IRON AND TIBC iron 82 ug/dL 27-159 Not Available [facility] ([facility]) [address] [place], [address], 09/12/2021 06:12:25 09/10/19 22 09/11/2021 IRON AND TIBC iron saturation 23 % 15-55 Not Available [facility] ([facility]) [address] [place], [address], 09/12/2021 06:12:25 09/10/19 22 09/11/2021 FSH AND LH LH 22.7 mIU/m L Adult Femal e: Folli cular phase 2.4 - 12.6 Ovula tion phase 14.0 - 95.6 Lutea l phase 1.0 - 11.4 Postm enopa usal 7.7 - 58.5 Not Available [facility] ([facility]) [address] [place], [address], 09/12/2021 06:12:26 09/10/19 22 09/11/2021 FSH AND LH FSH 6.1 mIU/m L Adult Femal e: Folli cular phase 3.5 - 12.5 Ovula tion phase 4.7 - 21.5 Lutea l phase 1.7 - 7.7 Postm enopa usal 25.8 - 134.8 Not Available [facility] ([facility]) [address] [place], [address], 09/12/2021 06:12:26 09/10/19 22 09/11/2021 HEMOG LOBIN A1C hemoglobin A1C 5.4 % 4.8-5. 6 Predi abete s: 5.7 - 6.4 Diabe daron: >6.4 Glyce bindu contr ol for adult s with diabe daron: <7.0 Not Available [facility] ([facility]) [address] [place], [address], 09/12/2021 06:12:26 09/10/19 22 09/11/2021 DHEA- SULFA TE DHEA-sulfate 113.0 ug/dL 84.8-3 78.0 Not Available [facility] ([facility]) [address] [place], [address], 09/12/2021 06:12:26 09/10/19 22 09/11/2021 TESTO STERO NE testosterone 29 NG/dL 8-60 Not Available [facility] ([facility]) [address] [place], [address], 09/12/2021 06:12:27 09/10/19 22 09/11/2021 TSH RFX ON ABNOR MAL TO FREE T4 TSH 2.150 uIU/m L 0.450- 4.500 Not Available [facility] ([facility]) [address] [place], [address], 09/12/2021 06:12:27 09/10/19 22 09/11/2021 XOCHITL TIN ferritin 19 NG/mL 15-150 Not Available [facility] ([facility]) [address] [place], [address], 09/12/2021 06:12:27 09/10/19 22 09/12/2021 IGP, APTIM A HPV HPV aptima Negati ve negati ve This nucle ic acid ampli ficat ion test detec ts fourt een high- risk HPV types (16,1 8,31, 33,35 ,39,4 5,51, 52,56 ,58,5 9,66, 68) witho ut diffe renti ation . Not Available [facility] ([facility]) [address] [place], [address], 09/13/2021 17:09:14 09/10/19 22 09/13/2021 IGP, APTIM A HPV diagnosis: Flores lala NEGAT TIKA FOR INTRA EPITH ELIAL LESIO N OR MALVERONICA MCCOLLUM . Not Available [facility] ([facility]) [address] [facility], [place], [address], 09/13/2021 17:09:14 09/10/19 22 09/13/2021 IGP, APTIM A HPV specimen adequacy: Flores t Satis facto ry for evalu ation . Endoc ervic al and/o r squam ous metap lasti c cells (endo cervi rosalio compo nent) are prese nt. Not Available [facility] ([facility]) [address] [place], [address], 09/13/2021 17:09:14 09/10/19 22 09/13/2021 IGP, APTIM A HPV clinician provided ICD10: Flores lala Z11.3 Z01.4 19 N92.6 Not Available [facility] ([facility]) [address] [place], [address], 09/13/2021 17:09:14 09/10/19 22 09/13/2021 IGP, APTIM A HPV performed by: Beka Urrutia (ASCP ) Not Available [facility] ([facility]) [address] [place], [address], 09/13/2021 17:09:14 09/10/19 22 09/13/2021 IGP, APTIM A HPV . . Not Available [facility] ([facility]) [address] [place], [address], 09/13/2021 17:09:14 09/10/19 22 09/13/2021 IGP, APTIM A HPV note: Flores t The Pap smear is a scree lisa test desig bernardo to aid in the detec tion of silvia ligna nt and malig nant condi tions of the uteri ne cervi x. It is not a diagn ostic proce dure and shoul d not be used as the sole means of detec ting cervi rosalio cance r. Both false -posi tive and false -nega tive repor ts do occur . Not Available [facility] ([facility]) [address] [facility], [place], [address], 09/13/2021 17:09:14 09/10/19 22 09/13/2021 IGP, APTIM A HPV test methodology: Commen t This liqui d based ThinP rep(R ) pap test was scree bernardo with the use of an image guide d syste m. Not Available [facility] ([facility]) [address] [facility], [place], [address], 09/13/2021 17:09:14 09/20/19 22 09/18/2021 US, pelvi s, trans abdom inal + trans vagin al No observ ation record ed. [facility] ([facility]) [address] [place], [address], 09/21/2021 09:58:49 Result Notes None recorded. Problems Name Problem SNOMED Code Status Onset Date Resolution Date Notes Provider Name and Address Organization Details Recorded Time Recurrent miscarriage 927241271 Completed 2013, 2014, 2015 Faith Bar[place], [place] [facility] 7 14:31:01 Smoker 18579766 Completed Faith Bar[place] [facility] 7 14:31:01 Depressive disorder 61291579 Completed Faith Bar[place] [facility] 7 14:31:01 Generalized anxiety disorder 99246925 Completed Faith Bar[place] [facility] 7 14:31:01 Recurrent miscarriage 883173313 Active 2013, 2014, 2015 Faith Bar[place] [facility] 7 14:31:01 Smoker 19260738 Active Faith Bar[place] [facility] 7 14:31:01 Depressive disorder 08951465 Active [place]ELLEE [place] [facility] 7 14:31:01 Generalized anxiety disorder 58008749 [place] [facility] 7 14:31:01 Herpes simplex 51444273 Completed [place] [facility] 7 14:31:01 Herpes simplex 94282236 [place] [facility] 7 14:31:01 73400043 Completed 201606/26/2017 [place] - [facility] 7 11:32:25 Alpha-fetop rotein level - finding 109541253 Completed 2016 Faith Bar[place] [facility] 7 14:31:01 Alpha-fetop rotein level - finding 570428571 Active 2016 [place]EL[place] [facility] 7 14:31:01 Transient hypertensio n of - delivered with complicatio n 489086981 Active 2016 Nik[place] [facility] 7 11:52:00 Bacterial vaginosis 982856599 Active 2017 Niko [place] [facility] 8 16:37:31 Polycystic ovary syndrome 015602679 Active 2021 ALYSIA THOMAS Attn: Gladys avery,[address] [place], [address], [place] - [facility] 2 22:52:58 Problem Notes None recorded. Procedures Surgical History Date Name Laterality Status Provider Name and Address Organization Details Recorded Time 0 IUD Removal completed [place] [facility] 09/14/2019 16:54:43 8 Date of Last Pap Smear completed Anna Yuen [place] [facility] 06/25/2018 11:34:33 7 IUD Insertion completed [place] [facility] 06/26/2017 11:51:30 6 Dilation and Curettage completed Faith Barone [place] [facility] 01/13/2017 11:20:20 5 Dilation and Curettage completed Faith Barone MA [facility] 01/13/2017 11:20:11 4 Dilation and Curettage completed Faith Barone MA [facility] 01/13/2017 11:20:28 Imaging Results None recorded. Procedure Notes None recorded. Medical Equipment None Reported. Allergies Allergen ID Allergen Name Allergen Category Reaction Reaction Severity Criticality Documentation Date Start Date Code Code System Note Provider Name and Address Organization Details Recorded Time 01961 Product containin g penicilli n (product) medicatio n anaphylax is severe Not available 01/13/2017 35772 8001 SNOMED KELLEE Multani, [facility] 7 11:09:23 85082 strawberr y allergeni c extract food hives severe Not available 01/13/2017 50622 4 RxNorm KELLEE Multani, [facility] 7 11:09:48 89957 codeine medicatio n nausea severe Not available 01/13/2017 2670 RxNorm KELLEE Multani, [facility] 7 11:10:39 93625 latex environme nt,medica tion rash severe Not available 01/13/2017 87526 91 RxNorm blist ers Faith KELLEE Barone, [facility] 7 11:11:20 Medications Name Sig Start Date Stop Date Status Note LastModified by Organization Details LastModified Time bupropion HCl SR 150 mg tablet,12 hr sustained-r elease TAKE ONE TABLET BY MOUTH TWICE DAILY 01/13 completed Not Available Not Available Not Available nystatin 100,000 unit/mL oral suspension 09/10 completed Not Available Not Available Not Available venlafaxine ER 37.5 mg capsule,ext ended release 24 hr 01/19 completed Not Available Not Available Not Available venlafaxine ER 75 mg capsule,ext ended release 24 hr TAKE 1 CAPSULE BY MOUTH EVERY DAY active Not Available Not Available No t Available clindamycin HCl 300 mg capsule Take 1 capsule every 6 hours by oral route for 7 days. 09/10 completed Not Available Not Available Not Available azithromyci n 250 mg tablet TAKE 2 TABLETS (500 MG) BY ORAL ROUTE ONCE DAILY FOR 1 DAY THEN 1 TABLET (250 MG) BY ORAL ROUTE ONCE DAILY FOR 4 DAYS 09/10 completed Not Available Not Available Not Available ibuprofen 800 mg tablet Take 1 tablet every 6 hours by oral route. 01/19 completed Not Available Not Available Not Available Procardia XL 30 mg tablet,exte nded release Take 1 tablet every day by oral route. 01/13 completed Not Available Not Available Not Available venlafaxine 25 mg tablet active Not Available Not Available Not Available metronidazo le 0.75 % (37.5 mg/5 gram) vaginal gel Insert 1 applicato rful every day by vaginal route. 01/19 completed Not Available Not Available Not Available clonazepam 0.5 mg tablet 09/10 completed Not Available Not Available Not Available ceftriaxone 250 mg solution for injection Take 250 mg by injection route. 01/19 completed Not Available Not Available Not Available venlafaxine ER 150 mg capsule,ext ended release 24 hr Take 1 capsule every day by oral route. 01/19 completed Not Available Not Available Not Available sumatriptan 50 mg tablet 09/10 completed Not Available Not Available Not Available metronidazo le 500 mg tablet Take 1 tablet twice a day by oral route for 7 days. 01/19 completed Not Available Not Available Not Available acyclovir 800 mg tablet Take 1 tablet every day by oral route. 06/25 completed Not Available Not Available Not Available Vitamin tablet Take 1 tablet every day by oral route as directed for 90 days. 01/13 completed Not Available Not Available Not Available alprazolam 0.5 mg tablet active Not Available Not Available Not Available famotidine 20 mg tablet Take 1 tablet twice a day by oral route. 01/13 completed Not Available Not Available Not Available nicotine (polacrilex ) 4 mg gum Chew 1 piece of gum every 2 hours by oral route as needed. 01/13 completed Not Available Not Available Not Available meclizine 25 mg tablet 09/10 completed Not Available Not Available Not Available ranitidine 150 mg tablet Take 1 tablet twice a day by oral route. 01/13 completed Not Available Not Available Not Available progesteron e micronized 200 mg capsule One po bid 01/13 completed Not Available Not Available Not Available gabapentin 300 mg capsule 09/10 completed Not Available Not Available Not Available methylpredn isolone 4 mg tablets in a dose pack 09/10 completed Not Available Not Available Not Available labetalol 100 mg tablet TAKE 1 TABLET BY MOUTH 2 TIMES DAILY 01/13 completed Not Available Not Available Not Available norethindro ne (contracept tika) 0.35 mg tablet Take 1 tablet every day by oral route. 06/25 completed Not Available Not Available Not Available ondansetron 4 mg disintegrat ing tablet 09/10 completed Not Available Not Available Not Available fluticasone propionate 50 mcg/actuati on nasal spray,suspe nsion 09/10 completed Not Available Not Available Not Available metformin ER 500 mg tablet,exte nded release 24 hr Take 1 tablet twice a day by oral route with meals for 30 days. 2021 active Not Available Not Available Not Avai lable ParaGard T 380A 380 square mm intrauterin e device Take 1 device by intrauter ine route. 01/19 completed [facility]# [id number] [phone] Not Available Not Available Not Available loratadine 10 mg tablet active Not Available Not Available Not Available diazepam 5 mg tablet 09/10 completed Not Available Not Available Not Available Adult Low Dose Aspirin 81 mg tablet,[place] yed release Take 1 tablet every day by oral route. 06/25 completed Not Available Not Available Not Available Daily-Michael tablet Take 1 tablet every day by oral route. 09/10 completed Not Available Not Available Not Available azithromyci n 500 mg tablet Take 2 tablets every day by oral route for 1 day. 01/13 completed Not Available Not Available Not Available ferrous gluconate 324 mg (38 mg iron) tablet Take 1 tablet twice a day by oral route. 09/10 completed Not Available Not Available Not Available calcium 600 mg (as carbonate)- vitamin D3 10 mcg (400 unit) tablet Take 1 tablet twice a day by oral route. 02/16 completed Not Available Not Available Not Available Calcium with Vitamin D3 600 mg (carbonate) -10 mcg (400 unit) capsule Take 1 capsule twice a day by oral route. 01/13 completed Not Available Not Available Not Available tranexamic acid 650 mg tablet Take 2 tablets 3 times a day by oral route for 5 days. 01/19 completed Not Available Not Available Not Available 28 mg iron-800 mcg tablet 01/13 completed Not Available Not Available Not Available Linzess 145 mcg capsule Take 1 capsule every day by oral route. 01/13 completed Not Available Not Available Not Available Slynd 4 mg (28) tablet Take 1 tablet every day by oral route. 09/13 completed Not Available Not Available Not Available Vitals Date Recorded Body height Body mass index (BMI) Body weight Heart rate Oxygen saturation Oxygen saturation in Arterial blood by Pulse oximetry Systolic And Diastolic Provider Name and Address Organization Details Last Updated DateTime 2 165.1 cm 33.4 kg/m2 61991.2 7 g 70 /min 98 % 98 % 102/80 mm[Hg] Faith Ochoa [place] - [facility] 10:06:58 Date Recorded Body weight Systolic And Diastolic Provider Name and Address Organization Details Last Updated DateTime 09/14/2019 97442.14 g 110/72 mm[Hg] Libertad French [place] [facility] 09/14/2019 16:30:42 Social History Question Answer Notes LastModified by Organizat ion Details LastModified Time Tobacco Smoking Status Former Smoker 06/25/18 pt stopped smoking 4-5 months ago, -a Anna Yuen MA null, [place] - [facility] 06/25/2018 11:35:15 Do You Have An Advance Directive? No [email or web address] Information not available 01/13/2017 If You Are , What Was Your Level Of Alcohol Consumption Prior To ? None [email or web address] Information not available 01/13/2017 Plan Yes [email or web address] Information no t available 01/13/2017 Is Blood Transfusion Acceptable In An Emergency? Yes [email or web address] Information not available 01/13/2017 What Is Your Level Of Caffeine Consumption? Occasional [email or web address] Information not available 01/13/2017 Live With Cats/exposure To Cat Litter Yes Information not available 01/13/2017 How Much Tobacco Do You Chew? None Information not available 01/13/2017 What Type Of Diet Are You Following? REGULAR [email or web address] Information not available 01/13/2017 Which Illicit Or Recreational Drugs Have You Used? Denies [email or web address] Information not available 01/13/2017 Education 11 [email or web address] Information no t available 01/13/2017 Have There Been Any Changes To Your Family Or Social Situation? No Information not available 01/13/2017 Frequent Air Travel No [email or web address] Information not available 01/13/2017 Illicit Drugs Pre- Denies [email or web address] Information not available 01/13/2017 Live Alone Or With Others? With Others [email or web address] Information not available 01/13/2017 Marital Status [email or web address] Informatio n not available 01/13/2017 What Was The Date Of Your Most Recent Tobacco Screening? 09/10/2021 [email or web address] Information not available 09/10/2021 How Many Children Do You Have? 2 Information not available 01/13/2018 Performs Monthly Self-breast Exam? Yes Information not available 01/13/2018 Do You Use Protection During Sex? No Information not available 01/13/2018 What Is Your Relationship Status? Information not available 01/13/2018 Seat Belts Used Routinely Yes [email or web address] Information not available 01/13/2017 Are You Sexually Active? Yes [email or web address] Information not available 01/13/2017 Do You Have Smoke And Carbon Monoxide Detectors In Your Home? Yes [email or web address] Information not available 01/13/2017 Are You Passively Exposed To Smoke? Yes [email or web address] Information not available 01/13/2017 How Much Tobacco Do You Smoke? No [email or web address] Information not available 06/25/2018 Smoking Pre- Yes [email or web address] Information not available 01/13/2017 Do You Use Sunscreen Routinely? Yes [email or web address] Information not available 01/13/2017 On What Date Was Tobacco Cessation Counseling Provided? 02/17/2020 [email or web address] Information not available 02/17/2020 How Many Years Have You Smoked Tobacco? 5 Information not available 09/14/2019 Sex: Unknown Functional Status Question Answer Note LastModified by Organizat ion Details LastModified Time What is your level of alcohol consumption? None [email or web address] Information not available 01/13/2017 Do you or have you ever used smokeless tobacco? Former smokeless tobacco user Information not available 09/14/2019 Are you currently employed? No Information not available 01/13/2018 What is your occupation? none [email or web address] Information not available 01/13/2017 Do you or have you ever used e-cigarettes or vape? Never used electronic cigarettes Information not available 09/14/2019 What is your exercise level? None [email or web address] Information not available 01/13/2017 Mental Status None recorded. Family History Relationship Description Onset Age of this Age Resolved Age Notes LastModified by Organization Details LastModified Time Father Diabetes mellitus [email or web address] Not available 01/13 11:18:23 Father Hypertensive disorder [email or web address] Not available 01/13 11:18:40 Medical History Condition Response Other N High Blood Pressure N Breast Cancer N Thyroid Problems N Kidney or Bladder Problems N Lung Disease N Depression N Blood Clots N GI Problems N Acne N Breast Problem N Eating Disorder N Anemia N Anesthesia Complications N Headaches/Migraines Y Ovarian Cancer N Diabetes N Anxiety Disorder Y Muscle, Joint, or Bone Problems N Blood Transfusions N Seizures/Epilepsy N Polyps N Infertility N Acid Reflux (GERD) Y Cancer N Abuse/Domestic Violence N Asthma N Endometriosis N High Cholesterol N Hepatitis N Liver Disease N Heart Disease N Pre-Eclampsia N Osteoporosis N Gynecological History Statement/Question Response Abnormal Pap Y Date of LMP 06/25/2021 Age at Menarche 10 Current Control Method None Age at First Child 21 Frequency of Cycle (Q days) Sexually Active? Y Menses Monthly No Date of Last Pap Smear 01/13/2018 Sexual Problems? N LMP Approximate Desired Control Method IUD Obstetrics History GPAL:G 5 P 1 1 3 2 Type Value Multiple Births 0 Full Term 1 Induced 0 Spontaneous 3 Premature 1 Living 2 Ectopics 0 Total 5 Immunizations Vaccine Type Date Status Note Provider Nam e and Address Organization Details Recorded Time Tdap 04/07/2017 completed Not Available [facility] 08/07/2019 02:34:19 Past Encounters Encounter ID Performer Location Encounter Start Date Encounter Closed Date Diagnosis/Indication Diagnosis SNOMED-CT Code Diagnosis ICD10 Code Diagnosis IMO Codes Diagnosis [id number] [facility] [address] [place] [address] 70931-233 0 01/13/2017 10:10:51 01/13/2017 15:45:39 Routine care 507225714 Z34.92 Generalize d anxiety disorder 27173228 F41.1 Recurrent miscarriage 10 7193166 N96 Depressive disorder 3548 9007 F32.9 Smoker 36817798 F17.748 [id number] MD Eulalia Rosado (MERCHANDISING DIRECTOR) [address] [place] [address] [phone] 0 01/31/2017 10:30:33 02/03/2017 11:21:21 Normal 05228444 Z34.82 [id number] MD Eulalia Rosado (MERCHANDISING DIRECTOR) [address] [place] [address] 68581-504 0 02/10/2017 11:05:29 02/10/2017 12:59:53 Routine care 522552486 Z34.92 Recurrent miscarriage 10 2493712 N96 Genital he rpes simplex 96755542 A60.9 Smoker 93570062 F17.200 Depressive disorder 3548 9007 F32.9 Generalize d anxiety disorder 47952274 F41.1 Female sterilization 608 18344 Z30.2 [id number] [facility] [address] [place] [address] [phone] 0 03/10/2017 09:56:44 03/10/2017 10:27:06 Routine care 302884520 Z34.92 Herpes simplex 92007144 B00.9 Smoker 73353665 F17.200 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 [id number] MD Eulalia Rosado (MERCHANDISING DIRECTOR) [address] [place] [address] [phone] 0 04/07/2017 09:38:19 04/07/2017 12:06:14 Routine care 049352081 Z34.92 screening 2437 77662 Z36 Smoker 98809485 F17.200 smokes outside Recurrent miscarriage 10 3454024 N96 Continue Aspirin until 36 weeks. stoped taking progestero ne Herpes simplex 09618955 B00.9 aware of dx and will cont taking meds throughout preg Gastroesop hageal reflux disease 989036979 K21.9 Contraception care 18840 5005 Z30.40 PP [id number] MD Eulalia Rosado (MERCHANDISING DIRECTOR) [address] [place] [address] [phone] 0 04/28/2017 09:56:53 04/28/2017 11:53:16 Routine care 362092577 Z34.93 Herpes simplex 10408895 B00.9 aware of dx and will cont taking meds throughout preg Smoker 23020420 F17.200 trying to cut down- down to 4-5 per day after meals. 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 [id number] [facility] [address] [place] [address] 57919-688 0 05/12/2017 10:17:33 05/12/2017 11:26:25 Routine care 279453768 Z34.93 - induced hypertension 88389949 O13.9 [id number] MD Eulalia Rosado ([employer]CHANDISING DIRECTOR) [address] [place] [address] [phone] 0 06/26/2017 10:19:33 06/30/2017 12:49:02 state 35798529 Z39.2 Exposure t o sexually transmissible disorder 506417788 Z20.2 care 64344873 8 Z39.2 Insertion of intrauterine contraceptive device 91684765 Z30.430 Genital he rpes simplex 05852164 A60.9 Smoker 79668945 F17.200 trying to cut down- down to 4-5 per day after meals. Generalize d anxiety disorder 63002850 F41.1 Transient hypertension of - delivered with complication 721279561 O13.9 cont rx 4 weeks [id number] MD Eulalia Rosado ([employer]CHANDISING DIRECTOR) [address] [place] [address] 40236-629 0 01/13/2018 15:21:53 01/14/2018 11:36:33 Gynecologic examination 16290690 Z01.411 Surveillan ce of intrauterine device contraception done 4457214289 01879 Z30.40 Generalize d anxiety disorder 55359368 F41.1 Depressive disorder 3548 9007 F32.9 h/o PP psychosis- currently Herpes simplex 50098638 B00.9 aware of dx and will cont taking meds throughout preg Recurrent miscarriage 10 0051715 N96 taking daily b ASA Pain of right wrist 3169 456678 49665 M25.673 [id number] MD Eulalia Rosado (MERCHANDISING DIRECTOR) [address] [place] [address] 74628-231 0 06/25/2018 11:05:56 06/25/2018 12:28:18 Exposure to sexually transmissible disorder 710644372 Z20.2 Surveillan ce of intrauterine device contraception done 5158640718 32401 Z30.40 may want switch to nexplanon Recurrent miscarriage 10 6163162 N96 taking daily b ASA Family storm nning surveillance 073466231 Z30.09 Acute pelv ic inflammatory disease 533794814 N73.9 Generalize d anxiety disorder 99107659 F41.1 [id number] MD Eulalia Rosado (MERCHANDISING DIRECTOR) [address] [place] [address] 64169-350 0 09/14/2019 16:19:44 09/15/2019 12:22:30 Removal of intrauterine device 68752455 Z30.432 paragard IUD removed. Family storm nning surveillance 545544556 Z30.09 [id number] MD [facility] ([facility] DIRECTOR) [address] [place] [address] 34806-633 0 01/20/2020 12:15:48 01/20/2020 15:52:43 Family planning surveillance 213656782 Z30.09 Abnormal u terine bleeding 7116618099 9100 N93.9 [id number] MD Eulalia Rosado (MERCHANDISING DIRECTOR) [address] [place] [address] 04168-865 0 01/26/2020 17:09:28 01/27/2020 07:58:24 Family planning surveillance 025992977 Z30.09 [id number] MD Eulalia Rosado (MERCHANDISING DIRECTOR) [address] [place] [address] 12022-682 0 02/17/2020 11:18:32 02/18/2020 07:53:22 Abnormal uterine bleeding 9460718339 9100 N93.9 Female sterilization 608 87632 Z30.2 Anemia 111698532 D64.9 [id number] ALYSIA THOMAS (Adult Med) [address] [place] [address] 09/10/2021 09:29:07 09/11/2021 12:46:44 Gynecologic examination 92273995 Z01.419 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 Rogers rregular uterine bleeding, currently taking Slynd- will call with pap results Venereal d isease screening 466632185 Z11.3 Nuswab completed in office today- will call with results Irregular periods 815024 07 N92.6 Irregular periods for ~3.5 yrs as she has been breastfeed ing. Sometimes they are extremely heavy and sometimes just spotting. She also had an unexplaine d 50lb wt gain ~1.5 yrs ago.- will call with lab results- f/u pending lab results- likely due to Slynd, may need to consider coming off this medication Health Concerns Section Related Observation LastModified by Organization Detai ls LastModified Time None Recorded Concern Status LastModified by Organization Details LastModified Time None Recorded Advance Directives Directive N: Payers Insurance Date Sequence Insurance Name Policy Number Policy Kang Covered Member ID Kang Member ID Guarantor Name 09/11/2021 1 [facility] - DOS ON OR AFTER 21 (MEDICAID REPLACEMENT - HMO) Guadalupe Oreilly [id number] Guadalupe Martinez 09/10/2021 1 [facility] - DOS PRIOR TO 2021 (MEDICAID REPLACEMENT - HMO) Guadalupe Oreilly [id number] Guadalupe Martinez Notes Date Note Type Note Provider Name and Address Organization Details Recorded Time 09/14/2019 text/html Annual GYNReport ed by PatientHistoryFor history, (spotting, cramping).Genitourinar y symptomsFor menstrual cycle, patient reportsbleeding between periods (2-3 weeks at a time). For urinary symptoms, patient reportsno hematuriaandno incontinence. For vulva, patient reportsno genital lesion. For vagina, patient reportsnormal vaginal discharge.Breast symptomsFor breast, patient reportsno breast pain,no breast lump, andno nipple discharge.Contraceptio nFor current contraception, patient reportsintrauterine device (iud).Endocrine symptomsFor sexual complaints, patient reportsno sexual complaints,no pain during intercourse, andnormal libido. For menopausal symptoms, patient reportsno menopausal symptomsandnormal vaginal lubrication.Psychologi rosalio symptomsFor psychological symptoms, patient reportsno depression,no anxiety, andno pmdd.Preventative measuresFor preventive measures, patient reportsencourage self breast examination,encourage regular exercise,encourage no tobacco use,encourage regular mammograms starting age 40, andfollowed with q3 year pap smear and high risk hpv typing.ROS as noted in the HPI 28y CF presents with spotting and cramping. Paraguard IUD was placed 06/2017. She reports that she has had heavy periods of bleeding that can last 2-3 weeks at a time. Has been going through a tampon/pad Q2-3H when bleeding occurs. Denies any vaginal d/c. Would like IUD removed. Is interested in having a BTL. Currently . Niko Jacklyn fletcher, [place] - [facility] 09/14/2019 18:03:48 01/26/2020 text/html Abnormal BleedingReported by PatientHPIFor onset/timing, patient reportspast 6+ cycles. For quality, patient reportsmoderate. For severity, patient reportschanging pad/tampon every 1-2 hours. For context, patient reportsoccurs between normal cycles. For associated symptoms, patient reportsno dysmenorrhea,no pelvic pain,no abdominal pain,no dyspareunia,no fatigue,no dizziness,no anemia/iron supplements,no shortness of breath,no cp/palpitations,no bloating,no change in bowel function,no urinary symptoms,no pms,no vaginal discharge, andno vaginal itching/irritation.ROS as noted in the HPI 28y CF presents with spotting and cramping. Paraguard IUD was placed 06/2017 removed 08/2018. She reports that she has had heavy periods of bleeding that can last 2-3 weeks at a time. Has been going through a tampon/pad Q2-3H when bleeding occurs. Denies any vaginal d/c. wt gain 30lbs Niko fletcher, [place] - [facility] 01/26/2020 18:10:11 02/17/2020 text/html Abnormal BleedingReported by PatientHPIFor onset/timing, patient reportspast 6+ cycles. For quality, patient reportsmoderate. For severity, patient reportschanging pad/tampon every 1-2 hours. For context, patient reportsoccurs between normal cycles. For associated symptoms, patient reportsno dysmenorrhea,no pelvic pain,no abdominal pain,no dyspareunia,no fatigue,no dizziness,no anemia/iron supplements,no shortness of breath,no cp/palpitations,no bloating,no change in bowel function,no urinary symptoms,no pms,no vaginal discharge, andno vaginal itching/irritation.ROS as noted in the HPI 28y CF presents with spotting and cramping. Paraguard IUD was placed 06/2017 removed 08/2018. She reports that she has had heavy periods of bleeding that can last 2-3 weeks at a time. Has been going through a tampon/pad Q2-3H when bleeding occurs. Denies any vaginal d/c. wt gain 30lbs Niko fletcher, [place] - [facility] 02/17/2020 12:52:54 09/10/2021 text/html ROS as noted in the HPI Guadalupe Oreilly is a 30 year old female who presents today for abnormal vaginal bleeding. She states that after having her last son (3.5 yrs ago), she was amenorrheic for a year before she started having abnormal periods again. Dr. Villasenor placed a non-hormonal IUD in summer of 2017 which caused spotting for an entire year. She had it removed and there was some discussion about an ablation but it was put off due to covid. She states she stopped breast feeding 9 months ago, started on Slynd and has had irregular bleeding since. Sometimes she has 1-2 weeks of heavy bleeding where she soaks through a tampon an hour and other times she will spot for a couple of days. She states that 2 days ago she had some light spotting and prior to that her last period was in May 2021. She is not interested in starting control as she has tried multiple pills, the ring, and the patch which she states all make her irritable. She also states that ~1.5 yrs ago she gained 50 lbs over the course of ~6 months. She states that her PCP checked for thyroid disease and diabetes at that time. She admits to acne and hirsutism. ALYSIA THOMAS Attn: Accounting,[address], [place], [address], [facility] - [facility] 09/11/2021 08:23:51 OBGyn Episode Ob Episode Information Episode Created Date Number of Fetuses Patient Bloodtype Patient rh Status Prepregnancy Weight lbs Domestic Partner Domestic Partner Phone Father Name Orthotist/Prosthetist Status 01/14/20 17 1 CLOSED Fetus Data First Name Last Name Admitted to NICU Weight (g) Sex Living Outcome Pediatric Complications Fetus ID Race Codes Race Delivery Type , Spontane ous 13358 Gerson Calculation Initial Gerson Date Initial Exam Date Initial Exam Provider Initial Ultrasound Date Last Menstrual Period Date Ultra Sound Weeks Gestation 0 Eighteen To Twenty Week Gerson Update Ultra Sound Date Fundal Height At Umbil Quickening Date Ultra Sound Latest Weeks Gestation Final Gerson Confirmed By Final Gerson Confirmed Date Final Gerson Date Ultra Sound Latest Days Gestation 0 0 Menstrual History Last Menstrual Date Menses Monthly On Bcp Conception Prior Menses Frequency Hcg Plus Date Menarche Onset Age Delivery Information Delivery Date Delivery Type Labor Anesthesia Weeks Gestation Incision Type Labor Labor Length Hrs Delivered By Post Complications Tubal Sterilization Discharge Date Comments 5 16 Discharge Information Feeding Method Contraceptive Method Maternal HG B and HCT Levels Ob Episode Information Episode Created Date Number of Fetuses Patient Bloodtype Patient rh Status Prepregnancy Weight lbs Domestic Partner Domestic Partner Phone Father Name Orthotist/Prosthetist Status 01/14/20 17 1 O Positive Anny Martinez Smooth Babb CLOSED Fetus Data First Name Last Name Admitted to NICU Weight (g) Sex Living Outcome Pediatric Complications Fetus ID Race Codes Race Delivery Type Wisam banks true 1927.76 6 M true Prematur e apgars 2 and 7 baby was premature, required a feeding tube. 64361 2106-3 White Standard Vaginal Delivery Problems Problem Notes 03/10/17 Baby Boy, Wisam y es to circ, Epidural, Dr. 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, 2014, 2016 Alpha-fetoprotein level - finding 01/17/2017 [id number] Herpes simplex 05575594 Gerson Calculation Initial Gerson Date Initial Exam Date Initial Exam Provider Initial Ultrasound Date Last Menstrual Period Date Ultra Sound Weeks Gestation 07/12/2017 01/13/2017 [facility] 01/03/2017 09/12/2016 12 Eighteen To Twenty Week Gerson Update Ultra Sound Date Fundal Height At Umbil Quickening Date Ultra Sound Latest Weeks Gestation Final Gerson Confirmed By Final Gerson Confirmed Date Final Gerson Date Ultra Sound Latest Days Gestation 01/04/20 17 12 [facility] 04/28/2017 017 5 Pre-anand Flowsheet Flowsheet Date 01/13/2017 Pedraza Score Blood Edema Fundus Height Fundus Units Glucose Ketones Leukocytes Nitrite Labor Signs Protein Cervic Dilation Cervic Effacement Cervic Station neg none 16 wks none negative none neg Type Weight in lbs Pre/Post Dialysis Refused BP Diastolic BP Location Tested BP Systolic BP Type 64 106 Fetus Heart Rate Present A 156 Present Fetus Movement A No Comments 17.4 weeks; labs, cultures, US ordered; will return in 2 weeks for RN and 4 weeks for MD Flowsheet Date 01/31/2017 Pedraza Score Blood Edema Fundus Height Fundus Units Glucose Ketones Leukocytes Nitrite Labor Signs Protein Cervic Dilation Cervic Effacement Cervic Station Type Weight in lbs Pre/Post Dialysis Refused BP Diastolic BP Location Tested BP Systolic BP Type Fetus Heart Rate Present Fetus Movement Comments Flowsheet Date 02/10/2017 Pedraza Score Blood Edema Fundus Height Fundus Units Glucose Ketones Leukocytes Nitrite Labor Signs Protein Cervic Dilation Cervic Effacement Cervic Station neg none 22 cm none negative none neg Type Weight in lbs Pre/Post Dialysis Refused 176.515003641982 BP Diastolic BP Location Tested BP Systolic BP Type 60 94 sitting Fetus Heart Rate Present A 145 Present Fetus Movement A Yes Comments Tubal sterilization desired, desires c/s because of HSV, will schedule c/s with tubal ligation on 07/04/2017. Flowsheet Date 03/10/2017 Pedraza Score Blood Edema Fundus Height Fundus Units Glucose Ketones Leukocytes Nitrite Labor Signs Protein Cervic Dilation Cervic Effacement Cervic Station neg none 23 cm none negative none neg Type Weight in lbs Pre/Post Dialysis Refused 180.658800948845 BP Diastolic BP Location Tested BP Systolic BP Type 78 126 sitting Fetus Heart Rate Present A 133 Present Fetus Movement A Yes Comments OBF/U, instructions given re garding GTT. Flowsheet Date 04/07/2017 Pedraza Score Blood Edema Fundus Height Fundus Units Glucose Ketones Leukocytes Nitrite Labor Signs Protein Cervic Dilation Cervic Effacement Cervic Station neg none 29 cm none negative none neg Type Weight in lbs Pre/Post Dialysis Refused 183.094133339664 BP Diastolic BP Location Tested BP Systolic BP Type 60 106 sitting Fetus Heart Rate Present A 153 Present Fetus Movement A Yes Comments U/S ordered. Flowsheet Date 04/28/2017 Pedraza Score Blood Edema Fundus Height Fundus Units Glucose Ketones Leukocytes Nitrite Labor Signs Protein Cervic Dilation Cervic Effacement Cervic Station neg none 32 none negative [place] neg Type Weight in lbs Pre/Post Dialysis Refused 187.347655840805 BP Diastolic BP Location Tested BP Systolic BP Type 82 124 sitting Fetus Heart Rate Present A 145 Present Fetus Movement A Yes Comments Flowsheet Date 05/12/2017 Pedraza Score Blood Edema Fundus Height Fundus Units Glucose Ketones Leukocytes Nitrite Labor Signs Protein Cervic Dilation Cervic Effacement Cervic Station neg trace 31 cm none negative none trace Type Weight in lbs Pre/Post Dialysis Refused 196.287633711150 BP Diastolic BP Location Tested BP Systolic BP Type 80 140 Fetus Heart Rate Present A 146 Present Fetus Movement A Yes Comments Flowsheet Date 06/26/2017 Pedraza Score Blood Edema Fundus Height Fundus Units Glucose Ketones Leukocytes Nitrite Labor Signs Protein Cervic Dilation Cervic Effacement Cervic Station Type Weight in lbs Pre/Post Dialysis Refused 164.50042740123 BP Diastolic BP Location Tested BP Systolic BP Type 66 120 sitting Fetus Heart Rate Present Fetus Movement Comments Menstrual History Last Menstrual Date Menses Monthly On Bcp Conception Prior Menses Frequency Hcg Plus Date Menarche Onset Age 0209/12/2016 false 12 Genetic Screening And Infection History Question Response Note Patient's Age Will Be 35 Yea rs Or Older At Estimated Date of Delivery false Thalassemia (Upper Sorbian, Cook Islander, Mediterranean, Or Background): MCV < 80 false Neural Tube Defect (Meningomyelocele, Spina Bifi da, Or Anencephaly) false Congenital Heart Defect false Down Syndrome false Hiram-Sachs (eg, Buddhism, Cajun, Icelandic-[place]) f alse Leonardo Disease false Sickle Cell Disease Or Trait () false Hemophilia Or Other Blood Disorders false Muscular Dystrophy false Cystic Fibrosis false Dillon's Chorea false Mental Retardation/Autism false If Yes, Was Person Tested For Fragile X? false Other Inherited Genetic Or Chromosomal Disorder false Maternal Metabolic Disorder (eg, Type 1 Diabetes , PKU) false Patient Or Baby's Father Had A Child With Defects Not Listed Above false Recurrent Loss, Or A Stillbirth true Medications (including Suppl ements, Vitamins, Herbs, OTC Drugs), Illicit/Recreational Drugs, Alcohol true see list If Yes, Agent(s) And Strength/Dosage false Any Other Genetic History false Live With Someone With TB Or Exposed To TB false Patient Or Partner Has History Of Genital Herpes true HSV Rash Or Viral Illness Since Last Menstrual Perio d false History Of STD, Gonorrhea, Chlamydia, HPV, Syphi lis false Other Infection History false Plans and Education First Trimester Discussed Date Discussion Item Discussion Note Discuss ed By 01/31/2017 An[facility] 01/31/2017 Alcohol [facility] 01/31/2017 Intimate partner violence rh unley01/31/2017 [facility] 01[facility]2017 Screening for aneuploidy rhu [email or web address] 01/31/2017 Nutrition counseling ; special diet; dietary precautions (mercury, listeriosis) [facility]/2017 Childbirth classes/hospital facilities [facility] 01/31/2017 HIV and other routine tests [facility]/31/2017 Risk factors identif ied by history [email or web address] 01/31/2017 Weight gain counseling [facility]1 01/31/2017 Exercise [facility] 01/31/2017 Teratogens [facility] 01/31/2017 Use of any medicatio ns (including supplements, vitamins, herbs, or OTC drugs) [facility] 01/31/2017 breastfeed [email or web address] 01/31/2017 Sexual activity [email or web address] 01/31/2017 Tobacco/smoking cess ation counseling (ask, advise, assess, assist, and arrange) [facility] 01/31/2017 Illicit/recreational drugs r radha 01/31/2017 Dental care [facility] 01/31/2017 Travel [email or web address] 01/31/2017 Seat belt use [email or web address] 01/31/2017 Indications for ultrasonography [email or web address] 01/31/2017 Avoidance of saunas or hot tubs [facility] 01/31/2017 Toxoplasmosis precautions (cats/raw meat) [place] [id number] Second Trimester Discussed Date Discussion Item Discussion Note Discuss ed By 02/10/2017 Selecting a care provider 03/10/17 Dr. Magy MD [facility] 02/10/2017 family planning/tubal sterilization 04/28/17 PPBC Paragard, cb-rma [facility] 02/10/2017 Depression screening (when indicated) [facility] 02/10/2017 [facility]normal lab [facility] 02/10/2017 Signs and symptoms o f labor [facility] 02/10/2017 Intimate partner violence [facility] 02/10/2017 Tobacco/smoking cess ation counseling (ask, advise, assess, assist, and arrange) [facility] Third Trimester Discussed Date Discussion Item Discussion Note Discuss ed By 03/10/2017 Anesthesia plans 03/10/17 Epidural, cb-rm a [email or web address] 03/10/2017 Circumcision 03/10/17 yes to circ, cb-rma [email or web address] 03/10/2017 03/10/17 breast feed, cb-rma [email or web address] 03/10/2017 Family medical leave or disability forms 03/10/17 pt states no to FLMA, cb-rma [email or web address] Delivery Information Delivery Date Delivery Type Labor Anesthesia Weeks Gestation Incision Type Labor Labor Length Hrs Delivered By Post Complications Tubal Sterilization Discharge Date Comments 7 Induce d Regional-Ep idural 32.6 true 13 Hypertension false 05/25/2017 Preeclamp boubacar is reason for delivery. Discharge Information Feeding Method Contraceptive Method Maternal HG B and HCT Levels Combination iud Ob Episode Information Episode Created Date Number of Fetuses Patient Bloodtype Patient rh Status Prepregnancy Weight lbs Domestic Partner Domestic Partner Phone Father Name Orthotist/Prosthetist Status 01/14/20 17 1 CLOSED Fetus Data First Name Last Name Admitted to NICU Weight (g) Sex Living Outcome Pediatric Complications Fetus ID Race Codes Race Delivery Type , Spontane ous 57144 Gerson Calculation Initial Gerson Date Initial Exam Date Initial Exam Provider Initial Ultrasound Date Last Menstrual Period Date Ultra Sound Weeks Gestation 0 Eighteen To Twenty Week Gerson Update Ultra Sound Date Fundal Height At Umbil Quickening Date Ultra Sound Latest Weeks Gestation Final Gerson Confirmed By Final Gerson Confirmed Date Final Gerson Date Ultra Sound Latest Days Gestation 0 0 Menstrual History Last Menstrual Date Menses Monthly On Bcp Conception Prior Menses Frequency Hcg Plus Date Menarche Onset Age Delivery Information Delivery Date Delivery Type Labor Anesthesia Weeks Gestation Incision Type Labor Labor Length Hrs Delivered By Post Complications Tubal Sterilization Discharge Date Comments 4 9 Discharge Information Feeding Method Contraceptive Method Maternal HG B and HCT Levels Ob Episode Information Episode Created Date Number of Fetuses Patient Bloodtype Patient rh Status Prepregnancy Weight lbs Domestic Partner Domestic Partner Phone Father Name Orthotist/Prosthetist Status 01/14/20 17 1 CLOSED Fetus Data First Name Last Name Admitted to NICU Weight (g) Sex Living Outcome Pediatric Complications Fetus ID Race Codes Race Delivery Type 3543.46 0704 M Full Term [id number] Vaginal Gerson Calculation Initial Gerson Date Initial Exam Date Initial Exam Provider Initial Ultrasound Date Last Menstrual Period Date Ultra Sound Weeks Gestation 0 Eighteen To Twenty Week Gerson Update Ultra Sound Date Fundal Height At Umbil Quickening Date Ultra Sound Latest Weeks Gestation Final Gerson Confirmed By Final Gerson Confirmed Date Final Gerson Date Ultra Sound Latest Days Gestation 0 0 Menstrual History Last Menstrual Date Menses Monthly On Bcp Conception Prior Menses Frequency Hcg Plus Date Menarche Onset Age Delivery Information Delivery Date Delivery Type Labor Anesthesia Weeks Gestation Incision Type Labor Labor Length Hrs Delivered By Post Complications Tubal Sterilization Discharge Date Comments 2 Discharge Information Feeding Method Contraceptive Method Maternal HG B and HCT Levels Ob Episode Information Episode Created Date Number of Fetuses Patient Bloodtype Patient rh Status Prepregnancy Weight lbs Domestic Partner Domestic Partner Phone Father Name Orthotist/Prosthetist Status 01/14/20 17 1 CLOSED Fetus Data First Name Last Name Admitted to NICU Weight (g) Sex Living Outcome Pediatric Complications Fetus ID Race Codes Race Delivery Type , Spontane ous [id number] Gerson Calculation Initial Gerson Date Initial Exam Date Initial Exam Provider Initial Ultrasound Date Last Menstrual Period Date Ultra Sound Weeks Gestation 0 Eighteen To Twenty Week Gerson Update Ultra Sound Date Fundal Height At Umbil Quickening Date Ultra Sound Latest Weeks Gestation Final Gerson Confirmed By Final Gerson Confirmed Date Final Gerson Date Ultra Sound Latest Days Gestation 0 0 Menstrual History Last Menstrual Date Menses Monthly On Bcp Conception Prior Menses Frequency Hcg Plus Date Menarche Onset Age Delivery Information Delivery Date Delivery Type Labor Anesthesia Weeks Gestation Incision Type Labor Labor Length Hrs Delivered By Post Complications Tubal Sterilization Discharge Date Comments 6 8 Discharge Information Feeding Method Contraceptive Method Maternal HG B and HCT Levels
[2025-04-17] MEDS: PROMETHAZINE HCL 25 MG/ML AMPUL 12.5 MG IV PUSH (16:00)
[2025-04-17] MEDS: SODIUM CHLORIDE 0.9% IV 1,000 ML 999 ML IV CONT (16:00)
[2025-04-17 16:03] LABS: Alanine Aminotransferase 9 U/L (6-35); Albumin Level 3.8 g/dL (3.5-5.1); Alkaline Phosphatase 52 U/L (38-126); Anion Gap 6 mmol/L (4-12); Aspartate Amino Transferase 24 U/L (14-36); Bilirubin,Total 0.2 mg/dL (0.2-1.3); Blood Urea Nitrogen 9 mg/dL (7-17); Calcium 8.9 mg/dL (8.4-10.2); Carbon Dioxide 22 mmol/L (22-30); Chloride 105 mmol/L (98-107); Estimated CRCL calculation 106 ml/min; Estimated Glomerular Filt Rate > 60; Glucose 84 mg/dL (65-110); Lipase 72 U/L (23-300); Potassium 3.9 mmol/L (3.4-5.0); Sodium 133 mmol/L (137-145); Total Protein 6.6 g/dL (6.3-8.2)
[2025-04-17 16:37] LABS: Add Urine Microscopic? YES; Appearance Urine Clear (Clear); Glucose Urine UA Negative (Negative); Leukocyte Esterase Ur 1+ LEU/UL (Negative); Need Manual Microscopic Reviewed; Nitrate Urine Negative (Negative); Non Pathogenic Casts 0-2; Specific Grav Ur 1.018 (1.001-1.035)
[2025-04-17 16:52] VITALS: BP 106/73; PULSE 67; RESP 16; O2SAT 100
== END 2025-04-17 17:27 | disposition home or self-care (01) ==
PROVIDERS: Emergency Provider Emergency Medicine; PCP Internal Medicine
DX: O21.0 Mild hyperemesis gravidarum (principal); Z3A.15 15 weeks gestation of pregnancy; R82.71 Bacteriuria
CPT/HCPCS: 36415; 80053; 81001; 83690; 85025; 87086; 96361; 96374; 99284; J2550; J7030

== ENCOUNTER 2025-04-23 19:19 | Emergency (ER) | payer BC, SELFPAY ==
[2025-04-23 19:21] VITALS: BP 136/73; PULSE 73; RESP 18; TEMP 36.8; O2SAT 100
--- OUTSIDE RECORDS SUMMARY | 2025-04-23 21:17 | XMS_ITS | Clinical Summary ---
Author Organization [facility] Address [address] [place] [address] Care Team Providers Care Nuclear Plant Technical Advisor Name Role Phone Rolly Demarcus Christianne DO Primary Care Provider [phone] Source Comments [facility],non-owned Affiliates and Associated Physician Practices is amultiple site organization consisting of ambulatory clinics and hospital sitesin [place], [place], [place] and [place]. This disclosure is being madepursuant to the Care Everywhere program and may not contain all information available regarding this patient. Last updated 18.[facility] Allergies Active Allergy Reactions Criticality Noted Date Comments Codeine Nausea and/or Vomiting 05/20/2017 Latex Other 05/20/2017 Pt stated her skin will blister Penicillins Anaphylaxis High 05/20/2017 [facility] Urticaria Medium 05/20/2017 Medications * Be aware [...] Comments Blood Pressure 140/82 05/26/2017 4:35 PM MID LEVEL DEVELOPER Pulse 74 05/25/2017 6:35 PM MID LEVEL DEVELOPER Temperature 36.7 C (98.1 F) 05/26/2017 4:35 PM MID LEVEL DEVELOPER Respiratory Rate 16 05/26/2017 4:35 PM MID LEVEL DEVELOPER Oxygen Saturation 99% 05/26/2017 4:35 PM MID LEVEL DEVELOPER Inhaled Oxygen Concentration - - Weight 83 kg (183 lb) 05/26/2017 8:10 AM MID LEVEL DEVELOPER Height 170.2 cm (5' 7) 05/21/2017 8:00 [...] Group B DOUGLAS 05/24/2017 4:10 PM CDT [facility]CRO[facility] Microbiology MISCELLANEOUS SAMPLES / Unknown Collection / Unknown 05/21/2017 7:12 AM CDT 05/21/2017 7:27 AM CDT Barbie Solis MD LAB - MICROBIOLOGY ORDERA BLES Final Result [facility] [address] [place] [address], [facility] [phone] from Last 3 Months or Most Recently Relevant to Health Maintenance Insurance [facility] Advance Directives * Full Code (Latest Code Status on File) Date Activated Date Inactivated Comments 05/22/2017 5:39 PM 05/26/2017 7:54 PM * Full Code Date Activated Date Inactivated Comments 05/20/2017 6:49 PM 05/22/2017 5:39 PM * Full Code Date Activated Date Inactivated Comments 05/20/2017 3:55 PM 05/20/2017 6:49 PM Care Teams Nuclear Plant Technical Advisor Relationship Specialty Start Date End Date Demarcus Lofton DO PCP - General Internal Medicine 05/20/17
--- OUTSIDE RECORDS SUMMARY | 2025-04-23 21:17 | XMS_ITS | Data Portability ---
[facility] Address [address] [place] [address] Assessment No assessment recorded. Plan of Treatment Reminders Order Date Submit Date Provider Last Modified By Organization Details Last Modified Time Details Appointments None recorded. Lab Pap smear tests - FPAR 2.0 set 2021 [facility], [address] [facility], [address], [place], [address], 17:09:14 lh + FSH, serum 2021 REBECCA [...] ultra-sen sitive, serum 2021 [facility], [address], [address], 2 08:34:38 HbA1c (hemoglob in A1c), blood 2021 022 [facility] MURPHYR[facility], [address], [address], [place], [address], 2 08:34:37 CBC w/ auto diff 2021 022 REBECCA LEWISCORP, Gail Silver Jim, [address], [place], [address], 2 08:34:36 iron + total iron-bind ing capacity (TIBC), serum 2021 022 REBECCA MURPHYRP, Gail Stahlblu [address], [address], [place], [address], 2 08:34:36 ferritin, serum or plasma 2021 022 REBECCA MURPHYRP, [address]ail Stahl[address], [address], [place], [address], 2 08:34:38 vaginal pathogens panel, ELPIDIO+probe , vaginal fluid 2021 022 REBECCA MURPHYRP, [address], [address], [place], [address], 2 08:34:35 CBC w/ auto diff 2019 020 REBECCA LEWISCORP, Gail Spence[address]ack[address] Fern[address], [address], [place], [address], 0 08:17:17 iron + total iron-bind ing capacity (TIBC), serum 2019 020 [facility], [address] Spence[address], [address], [place], [address], 0 08:17:17 ferritin, serum or plasma 2019 020 [facility], [address], [address], [place], [address], 0 08:17:18 Referral None recorded. Procedures None recorded. Surgeries salpingec akllie, laparosco pic, robot assisted (SURG) 2019 020 [email or web address] Not available 0 10:10:44 hysterosc opy, with endometri al ablation (SURG) 2019 [facility], [address], [place], [address], 0 10:10:44 Imaging US, pelvis, transabdo darleen + transvagi nal - Hx of irregular menstrual cycles 2021 022 [facility] ([facility]), [address] [place], [address], 2 14:54:13 US, pelvis, transabdo darleen + transvagi nal 2019 020 [facility] (Imaging), [address] [place] [address] [address], [place], [address], 0 12:11:19 Medication Orders Slynd 4 mg (28) tablet 2019 020 [email or web address] [facility] #[id number], [address], [place], [place], [id number], 2 14:28:10 multivita min tablet 2019 020 [id number], [address], [place], [place], [id number], 2 09:34:32 Calcium with Vitamin D 600 mg-10 mcg (400 unit) tablet [address] [facility] #[id number], [address], [place], [place], [id number], 0 11:45:40 multivita min tablet 2019 020 [facility] #[id number], [address], [place], [address], 2 09:34:32 Calcium with Vitamin D 600 mg-10 mcg (400 unit) tablet 2019 020 [facility] #[id number], [address], [place], [address], 0 11:45:40 Patient TargetsNo targets recorded. Patient Instructions Encounter Date Encounter Id Patient Instructions Last Modified By Organization Details Last Modified Time 09/14/2019 [id number] IUD removal: care instructions [email or web address] Not available 09/14/2019 16:41:34 Reason for Referral None Reported. Results Created Date Observation Date Name Description Value Unit Range Abnormal Flag Note LastModifiedBy Organization Detail LastModifiedTime 02/17/20 20 02/18/2020 CBC w/ auto diff WBC 9.7 x10e3 /uL 3.4-10 .8 Not Available [facility] ([facility]) [address] [place], [address], 02/18/2020 08:17:17 02/17/20 20 02/18/2020 CBC w/ auto diff RBC 4.69 x10e6 /uL 3.77-5 .28 Not Available [facility] ([facility]) [address] [facility], [place], [address], 02/18/2020 08:17:17 02/17/20 20 02/18/2020 CBC w/ auto diff hemoglobin 13.6 g/dL 11.1-1 5.9 Not Available [facility] ([facility]) [address] [facility], [place], [address], 02/18/2020 08:17:17 02/17/20 20 02/18/2020 CBC w/ auto diff hematocrit 41.8 % 34.0-4 6.6 Not Available [facility] ([facility]) [address] [facility], [place], [address], 02/18/2020 08:17:17 02/17/20 20 02/18/2020 CBC w/ auto diff MCV 89 fL 79-97 Not Available [facility] ([facility]) [address] [facility], [place], [address], 02/18/2020 08:17:17 02/17/20 20 02/18/2020 CBC w/ auto diff MCH 29.0 pg 26.6-3 3.0 Not Available [facility] ([facility]) [address] [facility], [place], [address], 02/18/2020 08:17:17 02/17/20 20 02/18/2020 CBC w/ auto diff MCHC 32.5 g/dL 31.5-3 5.7 Not Available [facility] ([facility]) [address] [facility], [place], [address], 02/18/2020 08:17:17 02/17/20 20 02/18/2020 CBC w/ auto diff RDW 13.8 % 11.7-1 5.4 Not Available [facility] ([facility]) [address] [facility], [place], [address], 02/18/2020 08:17:17 02/17/20 20 02/18/2020 CBC w/ auto diff platelets 302 x10e3 /uL 150-45 0 Not Available [facility] ([facility]) [address] [facility], [place], [address], 02/18/2020 08:17:17 02/17/20 20 02/18/2020 CBC w/ auto diff neutrophils 72 % not estab. Not Available [facility] ([facility]) [address] [facility], [place], [address], 02/18/2020 08:17:17 02/17/20 20 02/18/2020 CBC w/ auto diff lymphs 23 % not estab. Not Available [facility] ([facility]) [address] [facility], [place], [address], 02/18/2020 08:17:17 02/17/20 20 02/18/2020 CBC w/ auto diff monocytes 5 % not estab. Not Available [facility] ([facility]) [address] [facility], [place], [address], 02/18/2020 08:17:17 02/17/20 20 02/18/2020 CBC w/ auto diff eos 0 % not estab. Not Available [facility] ([facility]) [address] [facility], [place], [address], 02/18/2020 08:17:17 02/17/20 20 02/18/2020 CBC w/ auto diff basos 0 % not estab. Not Available [facility] ([facility]) [address] [facility], [place], [address], 02/18/2020 08:17:17 02/17/20 20 02/18/2020 CBC w/ auto diff immature cells GARDENING [employer]PER[employer]OR Not Available [facility] ([facility]) [address] [facility], [place], [address], 02/18/2020 08:17:17 02/17/20 20 02/18/2020 CBC w/ auto diff neutrophils (absolute) 6.9 x10e3 /uL 1.4-7. 0 Not Available [facility] ([facility]) [address] [facility], [place], [address], 02/18/2020 08:17:17 02/17/20 20 02/18/2020 CBC w/ auto diff lymphs (absolute) 2.2 x10e3 /uL 0.7-3. 1 Not Available [facility] ([facility]) [address] [facility], [place], [address], 02/18/2020 08:17:17 02/17/20 20 02/18/2020 CBC w/ auto diff monocytes(ab solute) 0.5 x10e3 /uL 0.1-0. 9 Not Available [facility] ([facility]) [address] [facility], [place], [address], 02/18/2020 08:17:17 02/17/20 20 02/18/2020 CBC w/ auto diff eos (absolute) 0.0 x10e3 /uL 0.0-0. 4 Not Available [facility] ([facility]) [address] [facility], [place], [address], 02/18/2020 08:17:17 02/17/20 20 02/18/2020 CBC w/ auto diff baso (absolute) 0.0 x10e3 /uL 0.0-0. 2 Not Available [facility] ([facility]) [address] [facility], [place], [address], 02/18/2020 08:17:17 02/17/20 20 02/18/2020 CBC w/ auto diff immature granulocytes 0 % not estab. Not Available [facility] ([facility]) [address] [facility], [place], [address], 02/18/2020 08:17:17 02/17/2002/18/2020 CBC w/ auto diff immature grans (abs) 0.0 x10e3 /uL 0.0-0. 1 Not Available [facility] ([facility]) [address] [facility], [place], [address], 02/18/2020 08:17:17 02/17/20 20 02/18/2020 CBC w/ auto diff NRBC [employer]ENING [employer]PER[employer] Not Available [facility] ([facility]) [address] [facility], [place], [address], 02/18/2020 08:17:17 02/17/20 20 02/18/2020 CBC w/ auto diff hematology comments: GARDENING SUPER[employer]OR Not Available [facility] ([facility]) [address] [place], [address], 02/18/2020 08:17:17 02/17/20 20 02/18/2020 iron + total iron- oracio ng capac ity (TIBC ), serum iron bind.cap.(TI BC) 391 ug/dL 250-45 0 Not Available [facility] ([facility]) [address] [facility], [place], [address], 02/18/2020 08:17:17 02/17/20 20 02/18/2020 iron + total iron- oracio ng capac ity (TIBC ), serum UIBC 336 ug/dL 131-42 5 Not Available [facility] ([facility]) [address] [place], [address], 02/18/2020 08:17:17 02/17/20 20 02/18/2020 iron + total iron- oracio ng capac ity (TIBC ), serum iron 55 ug/dL 27-159 Not Available [facility] ([facility]) [address] [place], [address], 02/18/2020 08:17:17 02/17/20 20 02/18/2020 iron + total iron- oracio ng capac ity (TIBC ), serum iron saturation 14 % 15-55 below low normal Not Available [facility] ([facility]) [address] [place], [address], 02/18/2020 08:17:17 02/17/20 20 02/18/2020 xochitl tin, serum or plasm a ferritin, serum 20 NG/mL 15-150 Not Available [facility] ([facility]) [address] [place], [address], 02/18/2020 08:17:18 09/10/19 22 09/11/2021 NUSWA B VAGIN ITIS PLUS (VG+) atopobium vaginae Modera te - 1 score Not Available [facility] ([facility]) [address] [facility], [place], [address], 09/12/2021 06:12:24 09/10/19 22 09/11/2021 NUSWA B VAGIN ITIS PLUS (VG+) bvab 2 Low - 0 score Not Available [facility] ([facility]) [address] [facility], [place], [address], 09/12/2021 06:12:24 09/10/19 22 09/11/2021 NUA B [...] Drug Admin istra tion. Not Available [facility] ([facility]) [address] [facility], [place], [address], 09/12/2021 06:12:24 09/10/19 22 09/11/2021 NUA B VAGIN ITIS PLUS (VG+) angelia albicans, ELPIDIO Negati ve negati ve Not Available [facility] ([facility]) [address] [facility], [place], [address], 09/12/2021 06:12:24 09/10/19 22 09/11/2021 NUSWA B VAGIN ITIS PLUS (VG+) angelia glabrata, ELPIDIO Negati ve negati ve Not Available [facility] ([facility]) [address] [facility], [place], [address], 09/12/2021 06:12:24 09/10/19 22 09/12/2021 NUSWA B VAGIN ITIS PLUS (VG+) trich vag by ELPIDIO Negati ve negati ve Not Available [facility] ([facility]) [address] [facility], [place], [address], 09/12/2021 06:12:24 09/10/19 22 09/12/2021 NUSWA B VAGIN ITIS PLUS (VG+) chlamydia trachomatis, ELPIDIO Negati ve negati ve Not Available [facility] ([facility]) [address] [facility], [place], [address], 09/12/2021 06:12:24 09/10/19 22 09/12/2021 NUSWA B VAGIN ITIS PLUS (VG+) neisseria gonorrhoeae, ELPIDIO Negati ve negati ve Not Available [facility] ([facility]) [address] [facility], [place], [address], 09/12/2021 06:12:24 09/10/19 22 09/11/2021 CBC WITH DIFFE RENTI AL/PL ATELE T WBC 6.0 x10e3 /uL 3.4-10 .8 Not Available [facility] ([facility]) [address] [facility], [place], [address], 09/12/2021 06:12:25 09/10/19 22 09/11/2021 CBC WITH DIFFE RENTI AL/PL ATELE T RBC 4.59 x10e6 /uL 3.77-5 .28 Not Available [facility] ([facility]) [address] [facility], [place], [address], 09/12/2021 06:12:25 09/10/19 22 09/11/2021 CBC WITH DIFFE RENTI AL/PL ATELE T hemoglobin 13.9 g/dL 11.1-1 5.9 Not Available [facility] ([facility]) [address] [facility], [place], [address], 09/12/2021 06:12:25 09/10/19 22 09/11/2021 CBC WITH DIFFE RENTI AL/PL ATELE T hematocrit 41.2 % 34.0-4 6.6 Not Available [facility] ([facility]) [address] [facility], [place], [address], 09/12/2021 06:12:25 09/10/19 22 09/11/2021 CBC WITH DIFFE RENTI AL/PL ATELE T MCV 90 fL 79-97 Not Available [facility] ([facility]) [address] [facility], [place], [address], 09/12/2021 06:12:25 09/10/19 22 09/11/2021 CBC WITH DIFFE RENTI AL/PL ATELE T MCH 30.3 pg 26.6-3 3.0 Not Available [facility] ([facility]) [address] [facility], [place], [address], 09/12/2021 06:12:25 09/10/19 22 09/11/2021 CBC WITH DIFFE RENTI AL/PL ATELE T MCHC 33.7 g/dL 31.5-3 5.7 Not Available [facility] ([facility]) [address] [facility], [place], [address], 09/12/2021 06:12:25 09/10/19 22 09/11/2021 CBC WITH DIFFE RENTI AL/PL ATELE T RDW 12.6 % 11.7-1 5.4 Not Available [facility] ([facility]) [address] [facility], [place], [address], 09/12/2021 06:12:25 09/10/19 22 09/11/2021 CBC WITH DIFFE RENTI AL/PL ATELE T platelets 241 x10e3 /uL 150-45 0 Not Available [facility] ([facility]) [address] [facility], [place], [address], 09/12/2021 06:12:25 09/10/19 22 09/11/2021 CBC WITH DIFFE RENTI AL/PL ATELE T neutrophils 62 % not estab. Not Available [facility] ([facility]) [address] [facility], [place], [address], 09/12/2021 06:12:25 09/10/19 22 09/11/2021 CBC WITH DIFFE RENTI AL/PL ATELE T lymphs 30 % not estab. Not Available [facility] ([facility]) [address] [facility], [place], [address], 09/12/2021 06:12:25 09/10/19 22 09/11/2021 CBC WITH DIFFE RENTI AL/PL ATELE T monocytes 8 % not estab. Not Available [facility] ([facility]) [address] [facility], [place], [address], 09/12/2021 06:12:25 09/10/19 22 09/11/2021 CBC WITH DIFFE RENTI AL/PL ATELE T eos 0 % not estab. Not Available [facility] ([facility]) [address] [facility], [place], [address], 09/12/2021 06:12:25 09/10/19 22 09/11/2021 CBC WITH DIFFE RENTI AL/PL ATELE T basos 0 % not estab. Not Available [facility] ([facility]) [address] [facility], [place], [address], 09/12/2021 06:12:25 09/10/19 22 09/11/2021 CBC WITH DIFFE RENTI AL/PL ATELE T immature cells GARDENING SUPER[employer]OR Not Available [facility] ([facility]) [address] [facility], [place], [address], 09/12/2021 06:12:25 09/10/19 22 09/11/2021 CBC WITH DIFFE RENTI AL/PL ATELE T neutrophils (absolute) 3.7 x10e3 /uL 1.4-7. 0 Not Available [facility] ([facility]) [address] [place], [address], 09/12/2021 06:12:25 09/10/19 22 09/11/2021 CBC WITH DIFFE RENTI AL/PL ATELE T lymphs (absolute) 1.8 x10e3 /uL 0.7-3. 1 Not Available [facility] ([facility]) [address] [place], [address], 09/12/2021 06:12:25 09/10/19 22 09/11/2021 CBC WITH DIFFE RENTI AL/PL ATELE T monocytes(ab solute) 0.5 x10e3 /uL 0.1-0. 9 Not Available [facility] ([facility]) [address] [place], [address], 09/12/2021 06:12:25 09/10/19 22 09/11/2021 CBC WITH DIFFE RENTI AL/PL ATELE T eos (absolute) 0.0 x10e3 /uL 0.0-0. 4 Not Available [facility] ([facility]) [address] [place], [address], 09/12/2021 06:12:25 09/10/19 22 09/11/2021 CBC WITH DIFFE RENTI AL/PL ATELE T baso (absolute) 0.0 x10e3 /uL 0.0-0. 2 Not Available [facility] ([facility]) [address] [place], [address], 09/12/2021 06:12:25 09/10/19 22 09/11/2021 CBC WITH DIFFE RENTI AL/PL ATELE T immature granulocytes 0 % not estab. Not Available [facility] ([facility]) [address] [place], [address], 09/12/2021 06:12:25 09/10/19 22 09/11/2021 CBC WITH DIFFE RENTI AL/PL ATELE T immature grans (abs) 0.0 x10e3 /uL 0.0-0. 1 Not Available [facility] ([facility]) [address] [facility], [place], [address], 09/12/2021 06:12:25 09/10/19 22 09/11/2021 CBC WITH DIFFE RENTI AL/PL ATELE T NRBC [employer]ARDENING SUPERVISOR Not Available [facility] ([facility]) [address] [facility], [place], [address], 09/12/2021 06:12:25 09/10/19 22 09/11/2021 CBC WITH DIFFE RENTI AL/PL ATELE T hematology comments: GARDENING SUPERVISOR Not Available [facility] ([facility]) [address] [facility], [place], [address], 09/12/2021 06:12:25 09/10/19 22 09/11/2021 COMP. METAB OLIC PANEL (14) glucose 77 mg/dL 65-99 Not Available [facility] ([facility]) [address] [facility], [place], [address], 09/12/2021 06:12:25 09/10/19 22 09/11/2021 COMP. METAB OLIC PANEL (14) BUN 11 mg/dL 6-20 Not Available [facility] ([facility]) [address] [place], [address], 09/12/2021 06:12:25 09/10/19 22 09/11/2021 COMP. METAB OLIC PANEL (14) creatinine 0.74 mg/dL 0.57-1 .00 Eff ectiv e Febru yang 2021 [facility] will begin repor ting the 2020 CKD-E PI creat inine equat ion that estim ates kidne y funct ion witho ut a race varia ble. Not Available [facility] ([facility]) [address] [facility], [place], [address], 09/12/2021 06:12:25 09/10/19 22 09/11/2021 COMP. METAB OLIC PANEL (14) eGFR if nonafricn AM 108 mL/mi n/1.7 3 >59 Not Available [facility] ([facility]) [address] [facility], [place], [address], 09/12/2021 06:12:25 09/10/19 22 09/11/2021 COMP. METAB [...] a race varia ble. Not Available [facility] ([facility]) [address] [facility], [place], [address], 09/12/2021 06:12:25 09/10/19 22 09/11/2021 COMP. METAB OLIC PANEL (14) BUN/creatini ne ratio 15 9-23 Not Available [facility] ([facility]) [address] [place], [address], 09/12/2021 06:12:25 09/10/19 22 09/11/2021 COMP. METAB OLIC PANEL (14) sodium 140 mmol/ L 134-14 4 Not Available [facility] ([facility]) [address] [facility] [place] [place], [address], 09/12/2021 06:12:25 09/10/19 22 09/11/2021 COMP. METAB OLIC PANEL (14) potassium 4.6 mmol/ L 3.5-5. 2 Not Available [facility] ([facility]) [address] [place], [address], 09/12/2021 06:12:25 09/10/19 22 09/11/2021 COMP. METAB OLIC PANEL (14) chloride 102 mmol/ L 96-106 Not Available [facility] ([facility]) [address] [place] [address], [place], [address], 09/12/2021 06:12:25 09/10/19 22 09/11/2021 COMP. METAB OLIC PANEL (14) carbon dioxide, total 23 mmol/ L 20-29 Not Available [facility] ([facility]) [address] [place], [address], 09/12/2021 06:12:25 09/10/19 22 09/11/2021 COMP. METAB OLIC PANEL (14) calcium 9.9 mg/dL 8.7-10 .2 Not Available [facility] ([facility]) [address] [facility], [place], [address], 09/12/2021 06:12:25 09/10/19 22 09/11/2021 COMP. METAB OLIC PANEL (14) protein, total 7.0 g/dL 6.0-8. 5 Not Available [facility] ([facility]) [address] [facility], [place], [address], 09/12/2021 06:12:25 09/10/19 22 09/11/2021 COMP. METAB OLIC PANEL (14) albumin 4.6 g/dL 3.8-4. 8 Not Available [facility] ([facility] [address] [facility] [place], [address], 09/12/2021 06:12:25 09/10/19 22 09/11/2021 COMP. METAB OLIC PANEL (14) globulin, total 2.4 g/dL 1.5-4. 5 Not Available [facility] ([facility] [address] [facility] [place], [address], 09/12/2021 06:12:25 09/10/19 22 09/11/2021 COMP. METAB OLIC PANEL (14) A/G ratio 1.9 1.2-2. 2 Not Available [facility] ([facility]) [address] [place], [address], 09/12/2021 06:12:25 09/10/19 22 09/11/2021 COMP. METAB OLIC PANEL (14) bilirubin, total 0.3 mg/dL 0.0-1. 2 Not Available [facility] ([facility]) [address] [place], [address], 09/12/2021 06:12:25 09/10/19 22 09/11/2021 COMP. METAB OLIC PANEL (14) alkaline phosphatase 92 IU/L 44-121 Not Available [facility]) [address] [place], [address], 09/12/2021 06:12:25 09/10/19 22 09/11/2021 COMP. METAB OLIC PANEL (14) AST (SGOT) 22 IU/L 0-40 Not Available [facility] ([facility]) [address] [place], [address], 09/12/2021 06:12:25 09/10/19 22 09/11/2021 COMP. METAB OLIC PANEL (14) ALT (SGPT) 20 IU/L 0-32 Not Available [facility] ([facility]) [address] [place], [address], 09/12/2021 06:12:25 09/10/19 22 09/11/2021 IRON AND TIBC iron bind.cap.(TI BC) 361 ug/dL 250-45 0 Not Available [facility] ([facility]) [address] [place], [address], 09/12/2021 06:12:25 09/10/19 22 09/11/2021 IRON AND TIBC UIBC 279 ug/dL 131-42 5 Not Available [facility] ([facility]) [address] [place], [address], 09/12/2021 06:12:25 09/10/19 22 09/11/2021 IRON AND TIBC iron 82 ug/dL 27-159 Not Available [facility] ([facility]) [address] [place], [address], 09/12/2021 06:12:25 09/10/19 22 09/11/2021 IRON AND TIBC iron saturation 23 % 15-55 Not Available [facility] ([facility]) [address] [place], [address], 09/12/2021 06:12:25 09/10/19 22 09/11/2021 FSH AND LH LH 22.7 mIU/m L Adult Femal e: Folli cular phase 2.4 - 12.6 Ovula tion phase 14.0 - 95.6 Lutea l phase 1.0 - 11.4 Postm enopa usal 7.7 - 58.5 Not Available [facility] ([facility]) [address] [place], [address], 09/12/2021 06:12:26 09/10/19 22 09/11/2021 FSH AND LH FSH 6.1 mIU/m L Adult Femal e: Folli cular phase 3.5 - 12.5 Ovula tion phase 4.7 - 21.5 Lutea l phase 1.7 - 7.7 Postm enopa usal 25.8 - 134.8 Not Available [facility] ([facility]) [address] [place], [address], 09/12/2021 06:12:26 09/10/19 22 09/11/2021 HEMOG LOBIN A1C hemoglobin A1C 5.4 % 4.8-5. 6 Predi abete s: 5.7 - 6.4 Diabe daron: >6.4 Glyce bindu contr ol for adult s with diabe daron: <7.0 Not Available [facility] ([facility]) [address] [place], [address], 09/12/2021 06:12:26 09/10/19 22 09/11/2021 DHEA- SULFA TE DHEA-sulfate 113.0 ug/dL 84.8-3 78.0 Not Available [facility] ([facility]) [address] [place], [address], 09/12/2021 06:12:26 09/10/19 22 09/11/2021 TESTO STERO NE testosterone 29 NG/dL 8-60 Not Available [facility] ([facility]) [address] [place], [address], 09/12/2021 06:12:27 09/10/19 22 09/11/2021 TSH RFX ON ABNOR MAL TO FREE T4 TSH 2.150 uIU/m L 0.450- 4.500 Not Available [facility] ([facility]) [address] [place], [address], 09/12/2021 06:12:27 09/10/19 22 09/11/2021 XOCHITL TIN ferritin 19 NG/mL 15-150 Not Available [facility] ([facility]) [address] [place], [address], 09/12/2021 06:12:27 09/10/19 22 09/12/2021 IGP, APTIM A HPV HPV aptima Negati ve negati ve This nucle ic acid ampli ficat ion test detec ts fourt een high- risk HPV types (16,1 8,31, 33,35 ,39,4 5,51, 52,56 ,58,5 9,66, 68) witho ut diffe renti ation . Not Available [facility] ([facility]) [address] [place], [address], 09/13/2021 17:09:14 09/10/19 22 09/13/2021 IGP, APTIM A HPV diagnosis: Flores lala NEGAT TIKA FOR INTRA EPITH ELIAL LESIO N OR MALVERONICA MCCOLLUM . Not Available [facility] ([facility]) [address] [facility], [place], [address], 09/13/2021 17:09:14 09/10/19 22 09/13/2021 IGP, APTIM A HPV specimen adequacy: Flores t Satis facto ry for evalu ation . Endoc ervic al and/o r squam ous metap lasti c cells (endo cervi rosalio compo nent) are prese nt. Not Available [facility] ([facility]) [address] [place], [address], 09/13/2021 17:09:14 09/10/19 22 09/13/2021 IGP, APTIM A HPV clinician provided ICD10: Flores lala Z11.3 Z01.4 19 N92.6 Not Available [facility] ([facility]) [address] [place], [address], 09/13/2021 17:09:14 09/10/19 22 09/13/2021 IGP, APTIM A HPV performed by: Beka Urrutia (ASCP ) Not Available [facility] ([facility]) [address] [place], [address], 09/13/2021 17:09:14 09/10/19 22 09/13/2021 IGP, APTIM A HPV . . Not Available [facility] ([facility]) [address] [place], [address], 09/13/2021 17:09:14 09/10/19 22 09/13/2021 IGP, APTIM [...] ts do occur . Not Available [facility] ([facility]) [address] [facility], [place], [address], 09/13/2021 17:09:14 09/10/19 22 09/13/2021 IGP, APTIM A HPV test methodology: Commen t This liqui d based ThinP rep(R ) pap test was scree bernardo with the use of an image guide d syste m. Not Available [facility] ([facility]) [address] [facility], [place], [address], 09/13/2021 17:09:14 09/20/19 22 09/18/2021 US, pelvi s, trans abdom inal + trans vagin al No observ ation record ed. Count includes the [facility] ([facility]) [address] [place], [address], 09/21/2021 09:58:49 Result Notes None recorded. 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, 2014, 2015 Faith Bar[place] [facility] 7 14:31:01 Smoker 69821684 Active Faith Bar[place] [facility] 7 14:31:01 Depressive disorder 84401037 Active [place]ELLEE [place] [facility] 7 14:31:01 Generalized anxiety disorder 24892940 [place] [facility] 7 14:31:01 Herpes simplex 65365988 Completed [place] [facility] 7 14:31:01 Herpes simplex 06842910 [place] [facility] [place] 14:31:01 60343018 Completed 201606/26/2017 Niko [place]letcher[place] - [facility] 7 11:32:25 Alpha-fetop rotein level - finding 077055811 Completed 2016 Faith Bar[place] [facility] 7 14:31:01 Alpha-fetop rotein level - finding 592320448 Active 2016 [place]ELLEE [place] [facility] 7 14:31:01 Transient hypertensio n of - delivered with complicatio n 542163792 Active 2016 Niko [place]letcher[place] [facility] 7 11:52:00 Bacterial vaginosis 954546833 Active 2017 Nik[place] [facility] 8 16:37:31 Polycystic ovary syndrome 793605484 Active 2021 ALYSIA THOMAS Attn: Gladys avery,[address] [place], [address], [place] - [facility] 2 22:52:58 Problem [...] Dilation and Curettage completed Faith Barone MA [facility] 01/13/2017 11:20:11 4 Dilation and Curettage completed Faith Barone MA [facility] 01/13/2017 11:20:28 Imaging Results None recorded. Procedure Notes None recorded. Medical Equipment None Reported. Allergies Allergen ID Allergen Name Allergen Category Reaction Reaction Severity Criticality Documentation Date Start Date Code Code System Note Provider Name and Address Organization Details Recorded Time 54059 Product containin g penicilli n (product) medicatio n anaphylax is severe Not available 01/13/2017 54012 8001 SNOMED KELLEE Multani, [facility] 7 11:09:23 82272 strawberr y allergeni c extract food hives severe Not available 01/13/2017 12826 4 RxNorm KELLEE Multani, [facility] 7 11:09:48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
--- OUTSIDE RECORDS SUMMARY | 2025-04-23 21:17 | XMS_ITS | Clinical Summary ---
Author Organization [facility] Address [address] [place] [id number] Care Team Providers Care Router Machine Operator Name Role Phone None, Provider MD Primary Care Provider Unavaila ble Allergies Active Allergy Reactions Criticality Noted Date Comments Penicillins Anaphylaxis High 02/20/2025 Medications No known medications Encounters Date Type Department Care Team Description 02/20/2025 5:35 PM CDT - 02/20/2025 10:43 PM CDT Emergency [facility] [place] [address] Brenda Her, PANEL FITTER Vaginal Bleeding Discharge Disposition: Home or Self [...] 9:45 PM Narrative 02/20/2025 10:01 PM CDT [address] [address] EXAM: US OB TRANSVAG DATE: 02/20/2025 COMPARISON: [...] Procedure Note Huan Brooks MD - 02/20/[address] [address] EXAM: US OB TRANSVAG DATE: 02/20/2025 COMPARISON: [...] Brooks MD, 02/20/2025 9:45 PM Brenda Her [facility] ULTRASOUND Final Resul t * BLOOD TYPING, ABO AND RH (02/20/2025 7:17 PM CDT) ABO/RH O POSITIVE 02/20/2025 7:43 PM CDT [facility] 02/20/2025 7:17 PM CDT Brenda Her [facility] BLOOD BANK TEST ORDERABLES Final Result [facility] [address] [id number], [place] [phone] * Quantitative HCG (02/20/2025 5:43 PM CDT) HCG QUANTITATIVE 21,226 MIU/ML 02/21/20 6:40 PM CDT [facility] Comment: WEEKS OF REFERENCE RANGES [...] 02/20/2025 5:43 PM CDT us Brenda Her [facility] Final Resul t [facility] [address] [place] [address], * (ABNORMAL) COMPREHENSIVE METABOLIC PANEL (02/20/2025 5:38 PM CDT) GLUCOSE 84 70 - 99 MG/DL 02/20/2025 6:22 PM CDT [facility] BUN 6(L) 7 - 18 MG/DL 02/20/2025 6:22 PM CDT [facility] CREATININE S/P/B 0.59 0.55 - 1.02 MG/DL 02/20/2025 6:22 PM CDT [facility] SODIUM S/P/B 136 136 - 145 MMOL/L 02/20/2025 6:22 PM CDT [facility] POTASSIUM S/P/B 3.5 3.5 - 5.1 MMOL/L 02/20/2025 6:22 PM CDT [facility] CHLORIDE S/P/B 105 97 - 115 MMOL/L 02/20/2025 6:22 PM CDT [facility] CO2 26.0 21 - 32 MMOL/L 02/20/2025 6:22 PM CDT [facility] CALCIUM S/P/B 9.7 8.5 - 10.1 MG/DL 02/20/2025 6:22 PM CDT [facility] BILIRUBIN TOTAL S/P/B 0.4 0.2 - 1.2 MG/DL 02/20/2025 6:22 PM CDT [facility] Comment: THIS ASSAY IS NOT RECOMMENDED FOR PATIENTS UNDERGOING TREATMENT WITH ELTROMBOPAG DUE TO THE POTENTIAL FOR FALSELY ELEVATED RESULTS. TOTAL PROTEIN S/P/B 7.4 6.4 - 8.2 G/DL 02/20/2025 6:22 PM CDT [facility] ALBUMIN S/P/B 3.9 3.4 - 5.0 G/DL 02/20/2025 6:22 PM CDT [facility] AST 12(L) 15 - 37 U/L 02/20/2025 6:22 PM CDT [facility] ALT 18 14 - 55 U/L 02/20/2025 6:22 PM CDT [facility] ALKALINE PHOSPHATASE S/P/B 56 50 - 136 U/L 02/20/2025 6:22 PM CDT [facility] ANION GAP 5.0 2 - 10 MMOL/L 02/20/2025 6:22 PM CDT [facility] BUN CREATININE RATIO 10.2 6 - 26 02/20/2025 6:22 PM CDT [facility] A/G RATIO 1.1 1.0 - 2.0 RATIO 02/20/2025 6:22 PM CDT [facility] GFR ESTIMATE >90 >90 ML/MIN/1.7 3 M2 02/20/2025 6:22 PM CDT [facility] Comment: NOTE: eGFR is not calculated for patients <18 years of age or gender unknown. This is an estimated GFR calculation using the new CKD EPI creatinine equation without race and so does not require a correction factor for race. This estimated GFR should not be used for calculating drug doses. 02/20/2025 5:38 PM CDT us Brenda Her [facility] Final Resul t [facility] [address] [place] [address], [place] [phone] * (ABNORMAL) CBC W/DIFF AUTOMATED (02/20/2025 5:38 PM CDT) WBC 7.29 4.5 - 11.0 x10'3/uL 02/20/2025 6:07 PM CDT [facility] RBC 4.04(L) 4.20 - 5.40 x10'6/uL 02/20/2025 6:07 PM CDT [facility] HGB 12.2 12.0 - 16.0 G/DL 02/20/2025 6:07 PM CDT [facility] HCT 36.1(L) 38.0 - 48.0 % 02/20/2025 6:07 PM CDT [facility] MCV 89.4 81.0 - 99.0 FL 02/20/2025 6:07 PM CDT [facility] MCH 30.2 27.0 - 31.0 PG 02/20/2025 6:07 PM CDT [facility] MCHC 33.8 32.0 - 36.0 G/DL 02/20/2025 6:07 PM CDT [facility] RDW 13.0 11.5 - 14.5 % 02/20/2025 6:07 PM CDT [facility] PLT 234 130 - 400 x10'3/uL 02/20/2025 6:07 PM CDT [facility] MPV 9.7 9.3 - 12.2 FL 02/20/2025 6:07 PM CDT [facility] DIFFERENTIAL TYPE AUTOMATED DIFFERENTIAL 02/20/2025 6:07 PM CDT [facility] NEUTROPHILS % 67.0 % 02/20/2025 6:07 PM CDT [facility] LYMPHOCYTES % 25.7 % 02/20/2025 6:07 PM CDT [facility] MONOCYTES % 6.0 % 02/20/2025 6:07 PM CDT [facility] EOSINOPHILS 0.3 % 02/20/2025 6:07 PM CDT [facility] BASOPHILS 0.7 % 02/20/2025 6:07 PM CDT [facility] IMMATURE GRANS % 0.3 % 02/21/20 25 6:07 PM CDT [facility] ABS. NEUTROPHILS 4.89 1.80 - 7.70 x10'3/uL 02/20/2025 6:07 PM CDT [facility] ABS. LYMPHOCYTES 1.87 1.00 - 4.80 x10'3/uL 02/20/2025 6:07 PM CDT [facility] ABS. MONOCYTES 0.44 0.24 - 0.86 x10'3/uL 02/20/2025 6:07 PM CDT [facility] ABS. EOSINOPHILS 0.02(L) 0.04 - 0.36 x10'3/uL 02/20/2025 6:07 PM CDT [facility] ABS. BASOPHILS 0.05 0.01 - 0.08 x10'3/uL 02/20/2025 6:07 PM CDT [facility] ABS. IMMATURE GRANULOCYTES 0.02 0.00 - 0.49 x10'3/uL 02/20/2025 6:07 PM CDT [facility] 02/20/2025 5:38 PM CDT us Brenda Her [facility] LABORATORY Final Resul t [facility] [address] [place] [address], * URINALYSIS (02/20/2025 5:35 PM CDT) SPECIMEN TYPE URINE CLEAN CATCH 02/20/2025 5:35 PM CDT [facility] COLOR (U) COLORLESS 02/20/2025 5:54 PM CDT [facility] TRANSPARENCY CLEAR 02/20/2025 5:54 PM CDT [facility] SPECIFIC GRAVITY (U) 1.005 1.001 - 1.030 02/20/2025 5:54 PM CDT [facility] U PH 6.5 5.0 - 9.0 02/20/2025 5:54 PM CDT [facility] LEUKOCYTES (U) NEGATIVE NEGATIVE 02/20/2025 5:54 PM CDT [facility] NITRITES NEGATIVE NEGATIVE 02/20/2025 5:54 PM CDT [facility] PROTEIN RANDOM (U) NEGATIVE <30 MG/DL 02/20/2025 5:54 PM CDT [facility] GLUCOSE (U) NORMAL NORMAL MG/DL 02/20/2025 5:54 PM CDT [facility] KETONES MG/DL (U) NEGATIVE NEGATIVE MG/DL 02/20/2025 5:54 PM CDT [facility] UROBILINOGEN NORMAL NORMAL MG/DL 02/20/2025 5:54 PM CDT [facility] BILIRUBIN (U) NEGATIVE NEGATIVE MG/DL 02/20/2025 5:54 PM CDT [facility] BLOOD (U) NEGATIVE NEGATIVE 02/20/2025 5:54 PM CDT [facility] URINE SPECIMEN OBTAINED BY CLEAN CATCH PROCEDURE / Unknown 02/20/2025 5:35 PM CDT us Brenda Her PANEL FITTER URINE ORDERABLES Final Resu lt [facility] [address] [facility] [place] [address], [place] [phone] from Last 3 Months Insurance [facility] Care Teams Router Machine Operator Relationship Specialty Start Date End Date None, Provider, MD PCP - General UNKNOWN PHYSICIAN SPECIALTY 02/20/25
[2025-04-23 21:46] VITALS: BP 112/79; PULSE 64; O2SAT 100
[2025-04-23] MEDS: SODIUM CHLORIDE 0.9% IV 1,000 ML 999 ML IV CONT (21:52)
[2025-04-23 21:55] LABS: Hematocrit 31.8 % (37.0-47.0); Hemoglobin 10.5 g/dL (12.0-15.0); Immature Granulocyte Percent A 0.9 % (0-0.5); Lymphocytes Absolute Auto 2.17 K/mm3 (0.9-3.2); Mean Corpuscular HGB Conc 33.0 g/dl (32-36); Mean Corpuscular Hemoglobin 29.5 pg (26-34); Mean Corpuscular Volume 89.3 fl (80-100); Nucleated Red Blood Cells Absolute Auto 0.000 K/mm3 (0.0-0.012); Nucleated Red Blood Cells Perc 0.0 % (0.0-0.2); Platelet Count Result 188 k/mm3 (150-375); Red Blood Count 3.56 M/mm3 (4.2-5.4); White Blood Count 10.1 K/mm3 (4.5-10.0)
[2025-04-23 21:57] LABS: Add Urine Microscopic? NO; Appearance Urine Clear (Clear); Glucose Urine UA Negative (Negative); Leukocyte Esterase Ur Negative LEU/UL (Negative); Nitrate Urine Negative (Negative); Specific Grav Ur 1.007 (1.001-1.035)
[2025-04-23 22:05] LABS: Alanine Aminotransferase 9 U/L (6-35); Albumin Level 3.8 g/dL (3.5-5.1); Alkaline Phosphatase 59 U/L (38-126); Anion Gap 2 mmol/L (4-12); Aspartate Amino Transferase 20 U/L (14-36); Bilirubin,Total 0.3 mg/dL (0.2-1.3); Blood Urea Nitrogen 6 mg/dL (7-17); Calcium 8.8 mg/dL (8.4-10.2); Carbon Dioxide 26 mmol/L (22-30); Chloride 103 mmol/L (98-107); Estimated CRCL calculation 113 ml/min; Estimated Glomerular Filt Rate > 60; Glucose 79 mg/dL (65-110); Magnesium 1.7 mg/dL (1.6-2.3); Potassium 3.8 mmol/L (3.4-5.0); Sodium 131 mmol/L (137-145); Total Protein 6.7 g/dL (6.3-8.2)
[2025-04-23] MEDS: MAGNESIUM SULF 2 GM/WATER 50ML 2 GM/50 ML BAG IVPB (22:26)
[2025-04-23 22:31] VITALS: BP 107/70; PULSE 63; RESP 16; O2SAT 100
[2025-04-23] MEDS: MICONAZOLE NITRATE 2% CREAM 30 GM TUBE 1 APPLIC TOPICAL (23:04)
[2025-04-23 23:36] VITALS: BP 107/73; PULSE 73; RESP 18; O2SAT 100
--- NOTE | 2025-04-24 00:07 | ED_ITS ---
HPI - Nausea/Vomiting/Diarrhea General Chief complaint: Nausea/Vomiting/Diarrhea Stated complaint: I need fluids, feel like i have thrush Time Seen by Provider: 04/23/25 20:48 Source: patient Mode of arrival: ambulatory Limitations: no limitations History of Present Illness HPI Narrative: Patient is a 34-year-old female who presents the ED with report of nausea, vomiting. Patient reports she is currently 15 weeks gestation and has been diagnosed with hyperemesis gravidarum. Has had to come to the ER for fluid several times due to dehydration difficulty keeping down any food or drink at home. Most recently was in the ER on 04/[address] Hoskins. Has had confirmed IUP. Denying abd pain/vaginal bleeding at this time. Is prescribe Zofran 8mg at home, but denies significant improvement. Denies fevers. Patient also reports concern for yeast infection nipples. Reports yellow crusting drainage, intermittent discharge, burning sensation to nipples. Does note she had an abnormal UA recently and was placed on abx for this. Noticed the changes to her nipples a few days after the abx. Related Data Allergies Allergy/AdvReac Type Severity Reaction Status Date / Time codeine Allergy Intermediate Unknown Verified 04/17/25 16:06 latex Allergy Intermediate Blister Verified 04/17/25 16:06 Penicillins Allergy Intermediate NAUSEA/RASH Verified 04/17/25 16:06 strawberry Allergy Intermediate Hives Verified 04/17/25 16:06 Review of Systems 2 Review of Systems: All systems reviewed & are unremarkable except as noted in HPI. All systems reviewed & are unremarkable except as noted in HPI and below PMFSH Past Medical History Medical History Weight gain Abnormal menses Abnormal uterine bleeding Menorrhagia Screening for STD (sexually transmitted disease) Thrush Exposure to COVID-19 virus Bloody stool Sinusitis Chronic sinusitis of both maxillary sinuses PCOS (polycystic ovarian syndrome) Advanced maternal age in multigravida Advanced maternal age affecting , antepartum Suppression of menses Migraine Anxiety and depression Previous known suicide attempt Attention deficit disorder Anxiety Swallowing difficulty Eating disorder Depression Allergies Cyst of face Surgical History Surgical History H/O dilation and curettage Family History Family History Mother Family history of mental disorder Heart palpitations Anxiety Sibling Patient's sister is in good health, Onset Age: 18 Father Family history of diabetes mellitus in first degree relative Diabetes mellitus Social History Social History Social History: Caffeine- coffee/soda/energy drinks Smoking packs per day: 0.50 Smoking cigarettes per day: 10.0 Years smoked: 1 Smoking pack-years: 0.50 Smoking status: Current every day smoker Smoking end date: 07/21/18 Alcohol intake: never Substance use: former Substance use type: marijuana and crack/cocaine Last use: 2009 Lack of Transportation: No Lack of Food: Never True Current Housing: I Have Housing Concerned About Future Housing: No Difficulty Paying Gas/Electric Bills: No Difficulty Paying for Meds: Decline to Answer Currently Unemployed: YES Education: High School Diploma/GED Difficulty w/ Childcare or Family Care: YES Living arrangements: with family Gender identity (if verbalized by the patient): Female Exam 2 Narrative: GENERAL: Well appearing, well-nourished, non-toxic, in no acute distress. HEAD: Normocephalic, atraumatic. BREAST: [place]mond nipples with slight yellow/flaky crusting, focal tenderness. No surrounding erythema or warmth. No focal fluctuance. No nipple inversion. No active drainage. RESPIRATORY: Airway patent, respirations nonlabored. Clear to auscultation bilaterally, no rales, rhonchi, wheezing. CARDIOVASCULAR: Regular rate and rhythm without murmurs, rubs, or gallops. ABDOMINAL: Soft, nontender, nondistended. Normoactive BS. MUSCULOSKELETAL: Moves all extremities. No gross deformities. SKIN: Warm, dry, normal color. NEURO: A&O X3. Speech clear. Cranial nerves II-XII grossly intact. Steady gait. No ataxic movements. PSYCHIATRIC: Appropriate mood and affect. Normal interaction. Course Vital Signs Vital signs: Vital Signs Temperature 98.2 F 04/23/25 19:21 Pulse Rate 73 04/23/25 19:21 Respiratory Rate 18 04/23/25 19:21 Blood Pressure 136/73 04/23/25 19:21 Pulse Oximetry 100 04/23/25 19:21 Oxygen Delivery Room Air 04/23/25 19:21 Temperature 98.2 F 04/23/25 19:21 Pulse Rate 80 04/24/25 00:18 Respiratory Rate 18 04/24/25 00:18 Blood Pressure 107/73 04/24/25 00:18 Pulse Oximetry 100 04/24/25 00:18 Oxygen Delivery Room Air 04/23/25 19:21 MDM - Nausea/Vomiting/Diarrhea MDM Narrative Medical decision making narrative: Patient presented to ED for IV fluids, history of hyperemesis gravidarum, currently 15 weeks gestation. Confirmed IUP. Denying abdominal pain or vaginal bleeding. Vital signs are stable upon arrival. Patient is in no acute distress. Patient did not want anything for nausea currently. She did take Zofran prior to arrival. Wanting to start with just fluids. These are initiated. Laboratory studies with minimal leukocytosis 10.1. Hemoglobin consistent with previous records. Sodium 131. Otherwise stable electrolytes. Stable kidney function. Mag slightly low at 1.7. Given IV replacement. Normal LFTs. UA clear. heart tones 155. I did utilize bedside ultrasound myself to visualize fetus, positive movement and heart flutter. Patient and family reassured by this. Patient feeling improved after fluids. States she is ready to go home. Able to tolerate ice chips. Did not want to try anything further for p.o. challenge. Advised to stay very well hydrated at home. Advised close follow-up with OBGYN. Given strict return precautions. She is in agreement with plan. Discharged in stable condition. Patient started on miconazole ointment to nipples for possible candidal infection. Already reporting improvement in the ED. Advised to monitor sx's. Medical Records Attestation: I reviewed the patient's medical records. Lab Data Attestation: I reviewed the patient's lab results. 04/23/25 21:47 04/23/25 21:47 Labs: Lab Results 04/23/25 Range/Units 21:47 WBC 10.1 H (4.5-10.0) K/mm3 RBC 3.56 L (4.2-5.4) M/mm3 Hgb 10.5 L (12.0-15.0) g/dL Hct 31.8 L (37.0-47.0) % MCV 89.3 (80-100) fl MCH 29.5 (26-34) pg MCHC 33.0 (32-36) g/dl RDW 12.6 (11.5-14.5) % Plt Count 188 (150-375) k/mm3 MPV 9.6 (7.4-10.4) fl Immature Gran % (Auto) 0.9 H (0-0.5) % Neut % (Auto) 69.3 (45.5-73.1) % Lymph % (Auto) 21.6 (18.3-44.2) % Bowie % (Auto) 6.7 (2.6-8.5) % Eos % (Auto) 1.1 (0-4.4) % Baso % (Auto) 0.4 (0.2-1.2) % Lymph # (Auto) 2.17 (0.9-3.2) K/mm3 Bowie # (Auto) 0.7 H (0.1-0.6) K/mm3 Eos # (Auto) 0.1 (0-0.3) K/mm3 Baso # (Auto) 0.0 (0.0-0.1) K/mm3 Abs Immat Gran (auto) 0.09 H (0.00-0.031) K/mm3 Absolute Neuts (auto) 7.0 H (1.3-6.7) K/mm3 Absolute Nucleated RBC 0.000 (0.0-0.012) K/mm3 Nucleated RBC % 0.0 (0.0-0.2) % Sodium 131 L (137-145) mmol/L Potassium 3.8 (3.4-5.0) mmol/L Chloride 103 (98-107) mmol/L Carbon Dioxide 26 (22-30) mmol/L Anion Gap 2 L (4-12) mmol/L BUN 6 L (7-17) mg/dL Creatinine 0.54 L (0.7-1.0) mg/dL Estim Creat Clear Calc 113 ml/min Estimated GFR > 60 (59 - ) Glucose 79 (65-110) mg/dL Calcium 8.8 (8.4-10.2) mg/dL Magnesium 1.7 (1.6-2.3) mg/dL Total Bilirubin 0.3 (0.2-1.3) mg/dL AST 20 (14-36) U/L ALT 9 (6-35) U/L Alkaline Phosphatase 59 (38-126) U/L Total Protein 6.7 (6.3-8.2) g/dL Albumin 3.8 (3.5-5.1) g/dL Urine Color Yellow (Yellow) Urine Appearance Clear (Clear) Urine pH 6.5 (5.0-9.0) Ur Specific [place] 1.007 (1.001-1.035) Urine Protein Negative (Negative) mg/dL Urine Glucose (UA) Negative (Negative) mg/dL Urine Ketones Negative (Negative) mg/dL Ur Blood (Man) Negative (Negative) Urine Nitrate Negative (Negative) Urine Bilirubin Negative (Negative) Urine Urobilinogen 0.2 (<2.0) mg/dL Leukocyte Esterase Rfl Negative (Negative) STANLEY/UL Discharge Plan Discharge Clinical Impression: Dehydration, 15 weeks gestation of , Candidiasis of nipple Nausea and vomiting Qualifiers: Vomiting type: unspecified Qualified Code(s): R11.2 - Nausea with vomiting, unspecified Patient Disposition: Home Condition: Stable Instructions: Antibiotic Form, Dehydration (ED), Clear Liquid Diet (ED), Acute Nausea and Vomiting (ED) Additional Instructions: Utilize zofran as needed for further nausea. Increase fluid intake. Recommend electrolyte rich fluids, gatorade, pedialyte, body armour. Recommend clear liquids or bland diet until symptoms improve, such as bananas, rice, applesauce, toast, or crackers. Follow up with your OBGYN for further evaluation. Continue to utilize miconazole cream to nipples as needed. Return to the ED if you experience worsening or severe symptoms, unable to keep down food or drink, severe abdominal pain, fevers, vomiting blood, vaginal bleeding, or any other symptoms of concern. Patient Language: Irish Prescriptions: No Action venlafaxine 75 mg capsule,extended release 24hr 75 mg PO DAILY Qty: 90 3RF promethazine 12.5 mg tablet 12.5 mg PO TID Qty: 30 1RF ondansetron HCl 4 mg tablet 8 mg PO Q6H PRN (Reason: nausea and vomiting) Qty: 30 1RF nitrofurantoin monohyd/m-cryst [Macrobid] 100 mg capsule 100 mg PO Q12H 5 Days Qty: 10 0RF Rx Instructions: must administer with a meal/food Follow-up/Referrals: Kamlesh Hoskins MD [Physician, ASSISTANT RESEARCH SCIENTIST] Referral Note: Demarcus Stanley DO [Primary Care Provider, Internal Medicine] Time of Disposition: 00:10
[2025-04-24 00:18] VITALS: BP 107/73; PULSE 80; RESP 18; O2SAT 100
== END 2025-04-24 00:19 | disposition home or self-care (01) ==
PROVIDERS: Emergency Provider Physician Assistant; PCP Internal Medicine
DX: O21.1 Hyperemesis gravidarum with metabolic disturbance (principal); O98.812 Other maternal infectious and parasitic diseases complicating pregnancy, second trimester; B37.89 Other sites of candidiasis; O99.512 Diseases of the respiratory system complicating pregnancy, second trimester; J32.0 Chronic maxillary sinusitis; O99.282 Endocrine, nutritional and metabolic diseases complicating pregnancy, second trimester; E28.2 Polycystic ovarian syndrome; O99.342 Other mental disorders complicating pregnancy, second trimester; F41.9 Anxiety disorder, unspecified; F32.A Depression, unspecified; Z87.891 Personal history of nicotine dependence; Z3A.15 15 weeks gestation of pregnancy
CPT/HCPCS: 36415; 80053; 81003; 83735; 85025; 96361; 96365; 99284; A9270; J3475; J7030